=== PATIENT | female | born 1930 | race Caucasian/White ===

== ENCOUNTER 2016-11-25 10:11 | Inpatient (IN) | payer MEDICARE ==
[~2016-11-25] VITALS: Ht 154.9 cm; Wt 86.7 kg
[2016-11-25 11:45] VITALS: BP 134/62
[2016-11-25] MEDS ORDERED: MORPHINE SULFATE 2 MG/ML DISP.SYRIN. IV PRN (12:30)
[2016-11-25] MEDS ORDERED: ACETAMINOPHEN 325 MG TABLET. PO PRN (12:30)
[2016-11-25] MEDS ORDERED: ONDANSETRON PF 4 MG/2 ML VIAL. IV PRN (12:30)
[2016-11-25] MEDS ORDERED: PIP/TAZO PER PHARMACY MC PRN (12:30)
[2016-11-25] MEDS ORDERED: VANCOMYCIN 1.75 GM in IV NORMAL SALINE 500ML BAG 500 ML IV ONE (12:30)
--- NOTE | 2016-11-25 13:00 | RAD ---
Portable chest, 11/25/2016: History: Pneumonia No previous chest radiographs are available at this time for comparison purposes. The heart is at the upper limits of normal in size. There is calcific plaquing of the aorta. There are patchy right lung infiltrates there may be pleural fluid layering posteriorly contributing to the lower chest opacities. The underlying pulmonary vascularity on the right is obscured. There is pleural thickening in the left lateral costophrenic angle suggesting pleural fluid. No definite left lung infiltrate is seen. IMPRESSION: 1. Moderate right lung infiltrates suggesting pneumonia versus unilateral pulmonary edema. 2. Probable small bilateral pleural effusions.
[2016-11-25 13:48] LABS: BASO % 0 % (0-3); EOS % 0 % (0-3); HEMATOCRIT 26.3 % (36.0-47.0); HEMOGLOBIN 8.6 g/dL (12.0-15.5); LYMPH # 0.8 x10^3/uL (1.0-4.8); LYMPH % 7 % (24-48); MEAN CORPUSCULAR HEMOGLOBIN 32 pg (25-35); MEAN CORPUSCULAR HGB CONC 33 g/dL (31-37); MEAN CORPUSCULAR VOLUME 97 fL (79-100); MONO % 15 % (0-9); NEUT % 78 % (31-73); PLATELET COUNT 314 x10^3/uL (140-400); RED BLOOD COUNT 2.71 x10^6/uL (3.50-5.40); RED CELL DISTRIBUTION WIDTH 15.8 % (11.5-14.5); WHITE BLOOD COUNT 12.5 x10^3/uL (4.0-11.0)
[2016-11-25 13:58] LABS: INR 1.6 (0.8-1.1); PROTHROMBIN TIME PATIENT 17.8 SEC (11.7-14.0)
[2016-11-25] MEDS ORDERED: hydrALAZINE 20 MG/ML VIAL. IVP PRN (14:00)
[2016-11-25] MEDS ORDERED: VANCOMYCIN 2 GM in IV NORMAL SALINE 500ML BAG 500 ML IV ONE (14:00)
[2016-11-25] MEDS ORDERED: DEXTROSE 50% 25 GM / 50ML DISP.SYRIN. IV PRN (14:00)
[2016-11-25] MEDS ORDERED: ALBUTEROL SULFATE 2.5 MG/3 ML NEBU. NEB PRN (14:00)
[2016-11-25 14:04] LABS: CALCIUM 9.2 mg/dL (8.5-10.1); CREATININE 2.4 mg/dL (0.6-1.0); GFR 19.2; POTASSIUM 4.5 mmol/L (3.5-5.1)
--- NOTE | 2016-11-25 14:11 | PDOC1 ---
History and Physical Date of Admission Date of Admission 11/25/16 Identification/Chief Complaint Chief Complaint cough Problems: Source Source: Chart review, Patient History of Present Illness History of Present Illness 86yo F, pleasant, was transferred from [facility] for HAP. Pt was admitted there on 11/07 for right leg cellulitis, then became cough with yellow sputum, fever, chills, sob, treated with levaquin and zosyn for HAP, not better, then transfer here. no home o2. Now on NC 2L. WAS given lasix 40mg daily iv, Cr higher to 2.5 from baseline 1.7. low po appetite. Past Medical History Past Medical History CAD, CHF, DM2, COPD, HTN. STROKE. Past Surgical History Past Surgical History: No pertinent history Family History Family History: No Significant Social History Smoke: No ALCOHOL: none Drugs: None Current Problem List Problem List Problems Medical Problems: (1) Pneumonia Status: Acute Current Medications Current Medications Current Medications Medications (Trade) Dose Ordered Sig/Marga Start Time Stop Time Status Last Admin Dose Admin Acetaminophen (Tylenol) 650 mg PRN Q6HRS PRN 11/25/16 12:30 Acetaminophen/ Hydrocodone Bitart (Lortab 5/325) 1 tab PRN Q4HRS PRN 11/25/16 12:30 Heparin Sodium (Porcine) 5000 unit 5,000 unit Q8HRS 11/25/16 14:00 Morphine Sulfate 1 mg PRN Q1HR PRN 11/25/16 12:30 Ondansetron HCl (Zofran) 4 mg PRN Q6HRS PRN 11/25/16 12:30 Piperacillin Sod/ Tazobactam Sod (Zosyn Per Pharmacy) 1 each PRN DAILY PRN 11/25/16 12:30 Piperacillin Sod/ Tazobactam Sod/ Sodium Chloride (Zosyn/Iv Sodium Chloride 0.9% 50ml) 50 ml @ 100 mls/hr Q6HRS 11/25/16 18:00 UNV Vancomycin HCl 1.75 gm/Sodium Chloride 500 ml @ 250 mls/hr 1X ONCE 11/25/16 12:30 11/25/16 14:29 UNV Vancomycin HCl 1 each 1 each PRN DAILY PRN 11/25/16 12:30 Vancomycin HCl/ Sodium Chloride (Iv Sodium Chloride 0.9% 500ml Bag) 500 ml @ 250 mls/hr 1X ONCE 11/25/16 14:00 11/25/16 15:59 Allergies Allergies Allergies Coded Allergies Type Severity Reaction Last Updated Verified cephalexin Allergy Intermediate PT DOES NOT RECALL ALLERGY/RXN 11/25/16 Yes famotidine Allergy Intermediate 11/25/16 Yes tetracycline Allergy Intermediate 11/25/16 Yes tolmetin Allergy Intermediate 11/25/16 Yes ROS Review of System CONSTITUTIONAL: No fever or chills EYES: No recent changes SKIN: No rash or itching CARDIOVASCULAR: No chest pain, syncope, palpitations, or edema RESPIRATORY: No SOB or cough GASTROINTESTINAL: No nausea, vomiting or abdominal pain NEUROLOGICAL: No headaches or weakness ENDOCRINE: No cold or heat intolerance GENITOURINARY: No urgency or frequency of urination MUSCULOSKELETAL: No back pain or joint pain LYMPHATICS: No enlarged lymph nodes PSYCHIATRIC: No anxiety or depression Physical Exam Physical Exam GEN.: No apparent distress. Alert and oriented. sob. HEENT: Head is normocephalic, atraumatic NECK: Supple. LUNGS: bl mild rhonchis. HEART: RRR, S1, S2 present. Peripheral pulses intact ABDOMEN: Soft, nontender. Positive bowel sounds. EXTREMITIES: Without any cyanosis. bl leg mild edema. NEUROLOGIC: Normal speech, normal tone PSYCHIATRIC: Normal affect, normal mood. SKIN: No ulcerations Vitals Vitals Vital Signs Date Time Temp Pulse Resp B/P Pulse Ox O2 Delivery O2 Flow Rate FiO2 11/25/16 13:41 Nasal Cannula 2.0 11/25/16 11:45 97.9 103 20 134/62 95 97.9 Labs Labs Laboratory Tests Test 11/25/16 13:35 White Blood Count 12.5x10^3/uL (4.0-11.0) Red Blood Count 2.71x10^6/uL (3.50-5.40) Hemoglobin 8.6g/dL (12.0-15.5) Hematocrit 26.3% (36.0-47.0) Mean Corpuscular Volume 97fL (79-100) Mean Corpuscular Hemoglobin 32pg (25-35) Mean Corpuscular Hemoglobin Concent 33g/dL (31-37) Red Cell Distribution Width 15.8% (11.5-14.5) Platelet Count 314x10^3/uL (140-400) Neutrophils (%) (Auto) 78% (31-73) Lymphocytes (%) (Auto) 7% (24-48) Monocytes (%) (Auto) 15% (0-9) Eosinophils (%) (Auto) 0% (0-3) Basophils (%) (Auto) 0% (0-3) Neutrophils # (Auto) 9.8x10^3uL (1.8-7.7) Lymphocytes # (Auto) 0.8x10^3/uL (1.0-4.8) Monocytes # (Auto) 1.8x10^3/uL (0.0-1.1) Eosinophils # (Auto) 0.0x10^3/uL (0.0-0.7) Basophils # (Auto) 0.0x10^3/uL (0.0-0.2) Prothrombin Time 17.8SEC (11.7-14.0) Prothromb Time International Ratio 1.6 (0.8-1.1) Laboratory Tests Test 11/25/16 13:35 White Blood Count 12.5x10^3/uL (4.0-11.0) Red Blood Count 2.71x10^6/uL (3.50-5.40) Hemoglobin 8.6g/dL (12.0-15.5) Hematocrit 26.3% (36.0-47.0) Mean Corpuscular Volume 97fL (79-100) Mean Corpuscular Hemoglobin 32pg (25-35) Mean Corpuscular Hemoglobin Concent 33g/dL (31-37) Red Cell Distribution Width 15.8% (11.5-14.5) Platelet Count 314x10^3/uL (140-400) Neutrophils (%) (Auto) 78% (31-73) Lymphocytes (%) (Auto) 7% (24-48) Monocytes (%) (Auto) 15% (0-9) Eosinophils (%) (Auto) 0% (0-3) Basophils (%) (Auto) 0% (0-3) Neutrophils # (Auto) 9.8x10^3uL (1.8-7.7) Lymphocytes # (Auto) 0.8x10^3/uL (1.0-4.8) Monocytes # (Auto) 1.8x10^3/uL (0.0-1.1) Eosinophils # (Auto) 0.0x10^3/uL (0.0-0.7) Basophils # (Auto) 0.0x10^3/uL (0.0-0.2) Prothrombin Time 17.8SEC (11.7-14.0) Prothromb Time International Ratio 1.6 (0.8-1.1) VTE Prophylaxis Ordered VTE Prophylaxis Devices: Yes VTE Pharmacological Prophylaxi: Yes Assessment/Plan Assessment/Plan 1. sob with HAP 2. recent left leg cellulitis 3. h/o diastolic CHF 4. h/o CAD 5. ROB on CKD3 6. dm2 7. COPD 8. h/o stroke 9. morbid obesity 10. HTN 11. Acute resp failure with 1 12. sepsis with 1 plan: 1. card, pulm, renal consutl 2. CXR, CT , renal US 3. labs stat 4. ssi, duoneb 5. need home meds 6. blcx, sputum cx. add vanco and zosyn 7. dvt ppx ptot ADDISON SPANN MD Nov 25, 2016 14:11
[2016-11-25] MEDS: HEPARIN PF for SUB-Q USE 5,000 UNIT/0.5 ML VIAL. SQ SCH ×2 (14:30→21:47)
[2016-11-25] MEDS: VANCOMYCIN PER PHARMACY MC PRN (14:49)
[2016-11-25] MEDS: PIPERACILLIN/TAZOBACTAM 2.25 GM in IV NORMAL SALINE 50ML 50 ML IV SCH ×2 (15:00→21:37)
--- NOTE | 2016-11-25 16:43 | RAD ---
CT of the chest without contrast, 11/25/2016: History: Pneumonia, lung mass Noncontrast scans were obtained as requested. There is moderate calcific plaquing of the thoracic aorta without evidence of aneurysm. Scattered coronary artery calcifications are present. There are several pericardial calcifications. The heart is not significantly enlarged. Several small mediastinal lymph nodes are present without evidence of pathologic enlargement. There are small bilateral pleural effusions, right greater than left. There is moderate pulmonary consolidation and atelectasis in the right lower lobe, the posterior aspect of the right upper lobe as well as the posterior aspect of the right middle lobe. On the left, there are minimal tree-in-bud and groundglass type opacities in the posterior aspect of the left upper lobe. There are mild infrahilar groundglass opacities in the left lower lobe as well as small areas of peripheral parenchymal consolidation or atelectasis posteriorly in the left lower lobe. There is mild subcutaneous edema in both flank regions. IMPRESSION: 1. Moderate consolidation in the right lower lobe and the posterior aspects of the right upper and middle lobes suggesting pneumonia, with a small to moderate amount of associated right-sided pleural fluid. 2. Minimal patchy left chest opacities and small left pleural effusion. 3. Moderate coronary artery calcifications. 4. Pericardial calcifications. PQRS Compliance Statement: One or more of the following individualized dose reduction techniques were utilized for this examination: 1. Automated exposure control 2. Adjustment of the mA and/or kV according to patient size 3. Use of iterative reconstruction technique
--- NOTE | 2016-11-25 16:46 | RAD ---
Renal ultrasound, 11/25/2016: History: Acute renal injury The study is compromised by the patient's size. The right kidney measures 9.2 cm in length as does the left kidney. There is no evidence of hydronephrosis. The left renal contour is lobulated. Limited views of urinary bladder show no abnormality. IMPRESSION: 1. Suboptimal exam due to the patient's body habitus. 2. Lobulation of the left renal contour raising the possibility of an underlying mass. CT scanning is suggested for further evaluation. 3. No evidence of renal obstruction.
[2016-11-25] MEDS: IPRATRPIUM/ALBUTEROL 0.5/2.5MG 3 ML NEBU. NEB SCH ×2 (16:51→19:25)
--- NOTE | 2016-11-25 16:54 | PDOC ---
Provider Note Provider Note dictated CARITO SUBRAMANIAN MD Nov 25, 2016 16:54
--- NOTE | 2016-11-25 16:56 | CARD ---
APPROVED REPORT EXAM: Two-dimensional and M-mode echocardiogram with Doppler and color Doppler. Other Information Quality : AverageHR: 89bpm Rhythm : NSR INDICATION Congestive Heart Failure RISK FACTORS Obesity 2D DIMENSIONS RVDd2.4 (2.9-3.5cm)Left Atrium(2D)3.8 (1.6-4.0cm) IVSd0.8 (0.7-1.1cm)Aortic Root(2D)2.0 (2.0-3.7cm) LVDd3.7 (3.9-5.9cm)LVOT Diameter2.1 (1.8-2.4cm) PWd0.9 (0.7-1.1cm)LVDs2.9 (2.5-4.0cm) FS (%) 19.9 %SV23.4 ml LVEF(%)41.6 (>50%) Aortic Valve AoV Peak Ha.177.5cm/sAoV VTI39.6cm AO Peak GR.12.6mmHgLVOT Peak Ha.112.5cm/s AO Mean GR.7mmHgAVA (VMAX)2.15cm2 Mitral Valve MV E Kioeiqrr313.2cm/sMV DECEL PRYY759ct MV A Artfpzij509.0cm/sE/A Ratio0.8 MV A [id number] Tricuspid Valve TR P. Prdahmuw007ih/sTR Peak Gr.45mmHg Pulmonary Vein S1 Zywtjmbf26.7cm/sD2 Jrqktfdq04.6cm/s PVa rpmgegyv49rysq LEFT VENTRICLE The left ventricle is normal size. There is normal left ventricular wall thickness. Left ventricle sy stolic function is mildly impaired. The Ejection Fraction is 40-45%. There is mild global hypokinesis of the left ventricle. Abnormal septal wall motion is noted. Distal 1/3rd of the LV appears hypocont ractile. Transmitral Doppler flow pattern is Grade I-abnormal relaxation pattern. RIGHT VENTRICLE The right ventricle is normal size. There is normal right ventricular wall thickness. The right ventr icular systolic function is normal. ATRIA The left atrium size is normal. The right atrium size is normal. The interatrial septum is intact wit h no evidence for an atrial septal defect or patent foramen ovale as noted on 2-D or Doppler imaging. AORTIC VALVE The aortic valve is not well visualized. The aortic valve is mildly sclerotic. Doppler and Color Flow revealed no significant aortic regurgitation. There is no significant aortic valvular stenosis. MITRAL VALVE Mitral annular calcification is mild. The mitral valve leaflets are thickened. There is no evidence o f mitral valve prolapse. There is no mitral valve stenosis. Doppler and Color Flow revealed mild mitr al regurgitation. TRICUSPID VALVE Doppler and Color Flow revealed mild tricuspid regurgitation.The pulmonary artery systolic pressure i s estimated at 49 mmHg. There is moderate pulmonary hypertension. PULMONIC VALVE The pulmonary artery was obscured, unable to assess. GREAT VESSELS The aortic root is normal in size. The ascending aorta is normal in size. The pulmonary artery was ob scured, unable to assess. The IVC was obscured, unable to assess. PERICARDIAL EFFUSION There is no evidence of significant pericardial effusion. Critical Notification Critical Value: No <Conclusion> There is mild global hypokinesis of the left ventricle. Abnormal septal wall motion is noted. Distal 1/3rd of the LV appears hypocontractile. Doppler and Color Flow revealed mild tricuspid regurgitation.The pulmonary artery systolic pressure i s estimated at 49 mmHg. There is moderate pulmonary hypertension. Left ventricle systolic function is mildly impaired. The Ejection Fraction is 40-45%. Technically limited study
[2016-11-25] MEDS: INSULIN ASPART 300 UNITS/3 ML INSULN.PEN SQ SCH (17:00)
[2016-11-25] MEDS: methylPREDNISolone SOD SUCC PF 40 MG/ML VIAL. IV SCH ×2 (17:13→21:36)
[2016-11-25] MEDS ORDERED: PIPERACILLIN/TAZOBACTAM 3.375 GM in IV NORMAL SALINE 50ML 50 ML IV SCH (18:00)
--- NOTE | 2016-11-25 18:14 | CONS ---
DATE OF CONSULTATION: ATTENDING PHYSICIAN: Dr. Jewell. REASON FOR CONSULTATION: Pneumonia, dyspnea, hypoxia. HISTORY OF PRESENT ILLNESS: The patient is an 86-year-old female who has a history of tobacco use for 30 years, but she quit more than 30 years ago. She was recently hospitalized at [facility] for lower extremity cellulitis. She started to have fevers over there, she started to have cough with yellow sputum production and chills. She was treated with Levaquin and Zosyn for healthcare-associated pneumonia and was not feeling any better; as a result, she was hospitalized for further evaluation. I have reviewed the patient's chest x-ray and it showed infiltrates in the right lung. There was small right pleural effusion as well. The patient underwent CT of the chest, which has not been dictated yet, but I preliminary reviewed the CT chest findings. There is evidence of consolidation in the right lower lobe and also in the posterior aspects of right upper lobe and middle lobe as well. There is a small amount of right pleural effusion. There is also some patchy infiltrates in the left lung and also a nodular opacity in the left lower lobe. I have been asked to see her for further evaluation. She is currently on oxygen 2 liters. She had some faint audible wheezing. PAST MEDICAL HISTORY: Significant for history of CAD, CHF, possible COPD, history of diabetes, hypertension and stroke. History of oxygen use at 2 liters. PAST SURGICAL HISTORY: No recent surgeries. She has history of uterine cancer. ALLERGIES: TO CEPHALEXIN, PEPCID, TETRACYCLINE AND TOLMETIN. SOCIAL HISTORY: Smoked for 30 years before quitting more than 30 years ago. MEDICATIONS: Reviewed as listed in the MRAD including broad-spectrum antibiotic, vancomycin and Zosyn. REVIEW OF SYSTEMS: Twelve-point system obtained, pertinent positives discussed in history of present illness, otherwise noncontributory. All systems that were negative were reviewed as well. FAMILY HISTORY: Noncontributory to lungs. PHYSICAL EXAMINATION: VITAL SIGNS: Her blood pressure is 134/62, afebrile, pulse ox 95% on 2 liters. NECK: Supple. LUNGS: With bilateral expiratory wheezes. CARDIOVASCULAR: Regular rate and ____. ABDOMEN: Soft, nontender, obese. EXTREMITIES: With bilateral 1+ pitting edema and venous stasis. LABORATORY DATA: Reviewed. White cell count 12.5, hemoglobin 8.6, platelets 314, BUN 50, creatinine 2.4. ProBNP is 7124. IMPRESSION: 1. Dyspnea / Acute hypoxic Respiratory failure secondary to multifactorial etiologies including acute exacerbation of chronic obstructive pulmonary disease along with pneumonia involving the right lung. 2. Abnormal CT chest with extensive pneumonia in the right lung. We will cover for gram-negative and gram-positive organisms for healthcare-associated pneumonia. 3. Underlying chronic obstructive pulmonary disease with exacerbation. 4. Acute kidney injury. 5. Small to moderate right pleural effusion. We will monitor for now. 6. Obtain albumin to assess for nutritional status. RECOMMENDATIONS: 1. Discussed with the patient's . We will continue with broad-spectrum antibiotics. 2. Continue with DuoNebs. 3. Low dose Solu-Medrol till bronchospasm is resolved. 4. Follow sputum and blood cultures. 5. Follow chest x-rays. 6. Discussed with RN. CARITO SUBRAMANIAN MD DR: GETACHEW/salvatore JOB#: [id number] / [id number] TAM
[2016-11-25 19:59] VITALS: BP 169/64
[2016-11-25] MEDS: HYDROCODONE/APAP 5/325MG TABLET. PO PRN (20:13)
[2016-11-25] MEDS ORDERED: GABA-586 PO (22:18)
[2016-11-25] MEDS ORDERED: DOCU100C5 PO (22:18)
[2016-11-25] MEDS ORDERED: FURO40TA4 IVP (22:18)
[2016-11-25] MEDS ORDERED: GLIP5TAB3 PO (22:18)
[2016-11-25] MEDS ORDERED: LISI-334 PO (22:20)
[2016-11-25] MEDS ORDERED: NYST30PO9 TP (22:20)
[2016-11-25 23:26] VITALS: BP 146/61
[2016-11-26 03:37] VITALS: BP 169/81
[2016-11-26] MEDS: PIPERACILLIN/TAZOBACTAM 2.25 GM in IV NORMAL SALINE 50ML 50 ML IV SCH ×3 (05:51→21:08)
[2016-11-26] MEDS: methylPREDNISolone SOD SUCC PF 40 MG/ML VIAL. IV SCH (05:51)
[2016-11-26] MEDS: HEPARIN PF for SUB-Q USE 5,000 UNIT/0.5 ML VIAL. SQ SCH ×3 (06:09→21:31)
[2016-11-26 07:00] VITALS: BP 158/67
[2016-11-26] MEDS: IPRATRPIUM/ALBUTEROL 0.5/2.5MG 3 ML NEBU. NEB SCH ×4 (07:45→19:27)
[2016-11-26] MEDS: INSULIN ASPART 300 UNITS/3 ML INSULN.PEN SQ SCH ×3 (08:00→17:21)
[2016-11-26 08:40] LABS: BASO % 0 % (0-3); EOS % 0 % (0-3); HEMATOCRIT 28.3 % (36.0-47.0); HEMOGLOBIN 9.2 g/dL (12.0-15.5); LYMPH # 0.6 x10^3/uL (1.0-4.8); LYMPH % 7 % (24-48); MEAN CORPUSCULAR HEMOGLOBIN 32 pg (25-35); MEAN CORPUSCULAR HGB CONC 33 g/dL (31-37); MEAN CORPUSCULAR VOLUME 98 fL (79-100); MONO % 4 % (0-9); NEUT % 89 % (31-73); PLATELET COUNT 326 x10^3/uL (140-400); RED BLOOD COUNT 2.89 x10^6/uL (3.50-5.40); RED CELL DISTRIBUTION WIDTH 15.8 % (11.5-14.5); WHITE BLOOD COUNT 8.7 x10^3/uL (4.0-11.0)
[2016-11-26 08:47] LABS: CALCIUM 9.6 mg/dL (8.5-10.1); CREATININE 2.2 mg/dL (0.6-1.0); GFR 21.2; POTASSIUM 4.4 mmol/L (3.5-5.1)
[2016-11-26 09:13] LABS: % SAT IRON 18 % (15-34); IRON,SERUM 40 ug/dL (50-170)
--- NOTE | 2016-11-26 09:26 | PDOC ---
PULMONARY PROGRESS NOTES Subjective Pt says she is SOA since this am Vitals Vital Signs Date Time Temp Pulse Resp B/P Pulse Ox O2 Delivery O2 Flow Rate FiO2 11/26/16 07:45 93 Nasal Cannula 2.0 11/26/16 07:00 96.6 85 22 158/67 96.6 General: Alert Lungs: Wheezing (duffuse) Cardiovascular: S1 Abdomen: Soft Neuro Exam: Alert Extremities: No Edema Skin: Warm Labs Laboratory Tests Test 11/25/16 13:35 11/25/16 17:28 11/25/16 20:49 11/26/16 07:25 White Blood Count 12.5x10^3/uL (4.0-11.0) 8.7x10^3/uL (4.0-11.0) Red Blood Count 2.71x10^6/uL (3.50-5.40) 2.89x10^6/uL (3.50-5.40) Hemoglobin 8.6g/dL (12.0-15.5) 9.2g/dL (12.0-15.5) Hematocrit 26.3% (36.0-47.0) 28.3% (36.0-47.0) Mean Corpuscular Volume 97fL (79-100) 98fL (79-100) Mean Corpuscular Hemoglobin 32pg (25-35) 32pg (25-35) Mean Corpuscular Hemoglobin Concent 33g/dL (31-37) 33g/dL (31-37) Red Cell Distribution Width 15.8% (11.5-14.5) 15.8% (11.5-14.5) Platelet Count 314x10^3/uL (140-400) 326x10^3/uL (140-400) Neutrophils (%) (Auto) 78% (31-73) 89% (31-73) Lymphocytes (%) (Auto) 7% (24-48) 7% (24-48) Monocytes (%) (Auto) 15% (0-9) 4% (0-9) Eosinophils (%) (Auto) 0% (0-3) 0% (0-3) Basophils (%) (Auto) 0% (0-3) 0% (0-3) Neutrophils # (Auto) 9.8x10^3uL (1.8-7.7) 7.7x10^3uL (1.8-7.7) Lymphocytes # (Auto) 0.8x10^3/uL (1.0-4.8) 0.6x10^3/uL (1.0-4.8) Monocytes # (Auto) 1.8x10^3/uL (0.0-1.1) 0.3x10^3/uL (0.0-1.1) Eosinophils # (Auto) 0.0x10^3/uL (0.0-0.7) 0.0x10^3/uL (0.0-0.7) Basophils # (Auto) 0.0x10^3/uL (0.0-0.2) 0.0x10^3/uL (0.0-0.2) Prothrombin Time 17.8SEC (11.7-14.0) Prothromb Time International Ratio 1.6 (0.8-1.1) Sodium Level 143mmol/L (136-145) 142mmol/L (136-145) Potassium Level 4.5mmol/L (3.5-5.1) 4.4mmol/L (3.5-5.1) Chloride Level 106mmol/L (98-107) 105mmol/L (98-107) Carbon Dioxide Level 27mmol/L (21-32) 24mmol/L (21-32) Anion Gap 10 (6-14) 13 (6-14) Blood Urea Nitrogen 50mg/dL (7-20) 50mg/dL (7-20) Creatinine 2.4mg/dL (0.6-1.0) 2.2mg/dL (0.6-1.0) Estimated GFR (Cockcroft-Gault) 19.2 21.2 Glucose Level 132mg/dL (70-99) 191mg/dL (70-99) Calcium Level 9.2mg/dL (8.5-10.1) 9.6mg/dL (8.5-10.1) DF-Xko-X-Type Natriuretic Peptide 7124pg/mL (0-449) Glucose (Fingerstick) 117mg/dL (70-99) 172mg/dL (70-99) Iron Level 40ug/dL (50-170) Total Iron Binding Capacity 217ug/dL (250-450) Iron Saturation 18% (15-34) Ferritin 473ng/mL (8-252) Laboratory Tests Test 11/25/16 13:35 11/25/16 17:28 11/25/16 20:49 11/26/16 07:25 White Blood Count 12.5x10^3/uL (4.0-11.0) 8.7x10^3/uL (4.0-11.0) Red Blood Count 2.71x10^6/uL (3.50-5.40) 2.89x10^6/uL (3.50-5.40) Hemoglobin 8.6g/dL (12.0-15.5) 9.2g/dL (12.0-15.5) Hematocrit 26.3% (36.0-47.0) 28.3% (36.0-47.0) Mean Corpuscular Volume 97fL (79-100) 98fL (79-100) Mean Corpuscular Hemoglobin 32pg (25-35) 32pg (25-35) Mean Corpuscular Hemoglobin Concent 33g/dL (31-37) 33g/dL (31-37) Red Cell Distribution Width 15.8% (11.5-14.5) 15.8% (11.5-14.5) Platelet Count 314x10^3/uL (140-400) 326x10^3/uL (140-400) Neutrophils (%) (Auto) 78% (31-73) 89% (31-73) Lymphocytes (%) (Auto) 7% (24-48) 7% (24-48) Monocytes (%) (Auto) 15% (0-9) 4% (0-9) Eosinophils (%) (Auto) 0% (0-3) 0% (0-3) Basophils (%) (Auto) 0% (0-3) 0% (0-3) Neutrophils # (Auto) 9.8x10^3uL (1.8-7.7) 7.7x10^3uL (1.8-7.7) Lymphocytes # (Auto) 0.8x10^3/uL (1.0-4.8) 0.6x10^3/uL (1.0-4.8) Monocytes # (Auto) 1.8x10^3/uL (0.0-1.1) 0.3x10^3/uL (0.0-1.1) Eosinophils # (Auto) 0.0x10^3/uL (0.0-0.7) 0.0x10^3/uL (0.0-0.7) Basophils # (Auto) 0.0x10^3/uL (0.0-0.2) 0.0x10^3/uL (0.0-0.2) Prothrombin Time 17.8SEC (11.7-14.0) Prothromb Time International Ratio 1.6 (0.8-1.1) Sodium Level 143mmol/L (136-145) 142mmol/L (136-145) Potassium Level 4.5mmol/L (3.5-5.1) 4.4mmol/L (3.5-5.1) Chloride Level 106mmol/L (98-107) 105mmol/L (98-107) Carbon Dioxide Level 27mmol/L (21-32) 24mmol/L (21-32) Anion Gap 10 (6-14) 13 (6-14) Blood Urea Nitrogen 50mg/dL (7-20) 50mg/dL (7-20) Creatinine 2.4mg/dL (0.6-1.0) 2.2mg/dL (0.6-1.0) Estimated GFR (Cockcroft-Gault) 19.2 21.2 Glucose Level 132mg/dL (70-99) 191mg/dL (70-99) Calcium Level 9.2mg/dL (8.5-10.1) 9.6mg/dL (8.5-10.1) RS-Yow-H-Type Natriuretic Peptide 7124pg/mL (0-449) Glucose (Fingerstick) 117mg/dL (70-99) 172mg/dL (70-99) Iron Level 40ug/dL (50-170) Total Iron Binding Capacity 217ug/dL (250-450) Iron Saturation 18% (15-34) Ferritin 473ng/mL (8-252) Medications Active Scripts Medications Dose Route/Sig Days Date Category Nystatin 15 Gm Powder 1 Sapna TP BID 11/25/16 Reported Lisinopril 20 Mg Tablet 20 Mg PO DAILY 11/25/16 Reported Glucotrol (Glipizide) 5 Mg Tablet 5 Mg PO DAILY 11/25/16 Reported Gabapentin 300 Mg Capsule 300 Mg PO TID 11/25/16 Reported Furosemide 40 Mg Tablet 40 Mg IVP DAILY 11/25/16 Reported Docusate Sodium 100 Mg Capsule 100 Mg PO DAILY 11/25/16 Reported Impression . 1. Dyspnea / Acute hypoxic Respiratory failure secondary to multifactorial etiologies including acute exacerbation of chronic obstructive pulmonary disease along with pneumonia involving the right lung. 2. Abnormal CT chest with extensive pneumonia in the right lung. We will cover for gram-negative and gram-positive organisms for healthcare-associated pneumonia. 3. Underlying chronic obstructive pulmonary disease with exacerbation. 4. Acute kidney injury. 5. Small to moderate right pleural effusion. We will monitor for now. 6. Obtain albumin to assess for nutritional status. Plan . 1. Discussed with the patient's an RN. Will get ABG/ place her on BIPAP. We will continue with broad-spectrum antibiotics. 2. Continue with DuoNebs.q 4 hr 3. increase Solu-Medrol till bronchospasm is resolved. 4. Follow sputum and blood cultures. 5. Follow chest x-rays. 6. Discussed with RN. CARITO SUBRAMANIAN MD Nov 26, 2016 09:26
[2016-11-26 11:00] VITALS: BP 168/71
[2016-11-26 11:46] LABS: FOLATE 5.1 ng/ml (3.2-20.0)
[2016-11-26 11:47] LABS: PLT ESTIMATE ADEQUATE (ADEQUATE)
[2016-11-26 12:55] LABS: HCO3 ABG 22 mmol/L (21-28); PCO2 ABG 33 mmHg (35-46); PH ABG 7.45 (7.35-7.45); PO2 ABG 90 mmHg (65-108); SAT O2 ABG 96 % (92-99)
--- NOTE | 2016-11-26 13:08 | PDOC2 ---
CONSULT Date of Consult Date of Consult DATE: 11/26/16 TIME: 13:07 Reason for Consult Reason for Consult: ROB Referring Physician Referring Physician: Dr lujan Identification/Chief Complaint Chief Complaint Rob and HAPn Problems: Source Source: Chart review, Patient History of Present Illness Reason for Visit: as dictated Past Surgical History Past Surgical History: No pertinent history Family History Family History: No Significant Social History No ALCOHOL: none Drugs: None Current Problem List Problem List Problems Medical Problems: (1) Pneumonia Status: Acute Current Medications Current Medications Current Medications Ondansetron HCl (Zofran) 4 mg PRN Q6HRS PRN IV NAUSEA/VOMITING; Start 11/25/16 at 12:30 Morphine Sulfate 1 mg PRN Q1HR PRN IV PAIN; Start 11/25/16 at 12:30 Acetaminophen/ Hydrocodone Bitart (Lortab 5/325) 1 tab PRN Q4HRS PRN PO MILD PAIN, 2ND CHOICE Last administered on 11/25/16 20:13; Start 11/25/16 at 12:30 Acetaminophen (Tylenol) 650 mg PRN Q6HRS PRN PO Headaches, Temp > 101.5F; Start 11/25/16 at 12:30 Heparin Sodium (Porcine) 5000 unit 5,000 unit Q8HRS SQ Last administered on 11/26 06:09; Start 11/25/16 at 14:00 Piperacillin Sod/ Tazobactam Sod/ Sodium Chloride (Zosyn/Iv Sodium Chloride 0.9 % 50ml) 50 ml @ 100 mls/hr Q6HRS IV ; Start 11/25/16 at 18:00; Status UNV Piperacillin Sod/ Tazobactam Sod (Zosyn Per Pharmacy) 1 each PRN DAILY PRN MC SEE COMMENTS; Start 11/25/16 at 12:30 Vancomycin HCl 1 each 1 each PRN DAILY PRN MC SEE COMMENTS Last administered on 11/25/16 14:49; Start 11/25/16 at 12:30 Vancomycin HCl 1.75 gm/Sodium Chloride 500 ml @ 250 mls/hr 1X ONCE IV ; Start 11/25/16 at 12:30; Stop 11/25/16 at 14:29; Status UNV Vancomycin HCl/ Sodium Chloride (Iv Sodium Chloride 0.9% 500ml Bag) 500 ml @ 250 mls/hr 1X ONCE IV Last administered on 11/25/16 14:18; Start 11/25/16 at 14 :00; Stop 11/25/16 at 15:59; Status DC Albuterol/ Ipratropium (Duoneb) 3 ml RTQID NEB Last administered on 11/26/16 07 :45; Start 11/25/16 at 16:00; Stop 11/26/16 at 09:29; Status DC Albuterol Sulfate (Ventolin Neb Soln) 2.5 mg PRN Q4HRS PRN NEB SHORTNESS OF BREATH; Start 11/25/16 at 14:00 Insulin Aspart (Novolog) 0-9 UNITS TIDWMEALS SQ Last administered on 11/26/16 12:55; Start 11/25/16 at 17:00 Dextrose (Dextrose 50%-Water Syringe) 12.5 gm PRN Q15MIN PRN IV SEE COMMENTS; Start 11/25/16 at 14:00 Hydralazine HCl 10 mg 10 mg PRN Q4HRS PRN IVP ELEVATED BP, SEE COMMENTS; Start 11/25/16 at 14:00 Piperacillin Sod/ Tazobactam Sod 2.25 gm/Sodium Chloride 50 ml @ 100 mls/hr Q8HRS IV Last administered on 11/26/16 05:51; Start 11/25/16 at 15:00 Vancomycin HCl/ Sodium Chloride (Iv Sodium Chloride 0.9% 250ml) 250 ml @ 166.667 mls/hr Q24H IV ; Start 11/26/16 at 14:00 Vancomycin HCl 1 each 1X ONCE MC ; Start 11/27/16 at 13:30; Stop 11/27/16 at 13: 31 Methylprednisolone Sodium Succinate (Solu-Medrol 40mg Vial) 40 mg Q8HRS IV Last administered on 11/26/16 05:51; Start 11/25/16 at 17:00; Stop 11/26/16 at 09: 27; Status DC Methylprednisolone Sodium Succinate (Solu-Medrol 125mg Vial) 60 mg Q8HRS IV ; Start 11/26/16 at 14:00 Albuterol/ Ipratropium (Duoneb) 3 ml Q4HRS NEB Last administered on 11/26/16 11 :25; Start 11/26/16 at 12:00 Active Scripts Active Reported Nystatin 15 Gm Powder 1 Sapna TP BID Lisinopril 20 Mg Tablet 20 Mg PO DAILY Glucotrol (Glipizide) 5 Mg Tablet 5 Mg PO DAILY Gabapentin 300 Mg Capsule 300 Mg PO TID Furosemide 40 Mg Tablet 40 Mg IVP DAILY Docusate Sodium 100 Mg Capsule 100 Mg PO DAILY Allergies Allergies: Coded Allergies: cephalexin (Verified Allergy, Intermediate, PT DOES NOT RECALL ALLERGY/RXN , 11/25/16) famotidine (Verified Allergy, Intermediate, 11/25/16) tetracycline (Verified Allergy, Intermediate, 11/25/16) tolmetin (Verified Allergy, Intermediate, 11/25/16) ROS Review of System GEN: subj Fevers no Chills fatigue anorexia EYES: no new Visual Complaints (no recent eye exams) ENT: no EN Drainage no Hearing deficiets CVS: no Orthopnea no CP RESP: no SOB no SOLIS GI: no Nausea no Vomiting : no Dysuria no Urgency HEME: no easy bruising no Palp Ly Nodes NEURO no Focal Weakness no Sz ? Paresthesia in mallory lower ext PSYCH: no Suicidal Ideation min Depression SKIN: ? Rashes (cellulitis preadmit) ENDO: no Polyuria or Polydipsia no Hot/Cold Intolerance MU SK: no Arthraigia no Myalgia Physical Exam Physical Exam General Appearance: Awake Alert Oriented x 3 In no Distress Eyes: VIsion Unchanged Conjunctiva Normal EN: No EN Drainage Mucous Memb. moist, many missing teeth Neck: no JVD min JVP Supple no Thyromegaly CVS: S1 S2 ? Murmur No Gallop No Rub + Edema (some Brawny); +1 pulse in DP Resp: no Rales no Rhonchi no Acc. Muscle use; distal BS GI: BAS +ve NO Bruit Non Tender Non Distended; Obese : no CVA tenderness; no Suprapubic Tenderness SKIN: ? Rash on lower ext vs hypersensitivity Breast Exam deferred Mu.Sk: Adequate ROM no Muscle Atrophy Heme: Unable to palpate Obvious LAD no palp Splenomegaly NEURO: Good Strength and Tone Cranial Nerves II - XII grossly intact Psych: ? Depressed no Active hallucination Vital Signs Vital Signs Date Time Temp Pulse Resp B/P Pulse Ox O2 Delivery O2 Flow Rate FiO2 11/26/16 11:25 96 BiPAP/CPAP 11/26/16 11:00 97.8 81 22 168/71 2.0 97.8 Assessment & Plan ROB - ? due to diuresis. Presley and watch UO. Current FLuid and E-lyte status does not necessitate emergent need for Dialysis. Will re-evaluate for Dialysis in am Subjective Oliguria - cannot R/o ATN per se. CKD III/ Iv - baseline Creat is thot to be 1.7, (DM/ HTNsive / NS cannot beruled out, besides obesity related etios) but she was 2.3 OA at [facility]. will need OP labs from Dr Ferraro. Sh e is not aware of diagnosis of CKD per se Anemia: (fe def ) and some suspect due to recent hospitalization. may need Epogen Transfuse as needed. check Iron Proteinuria as noted from UA at [facility] - quatitate with 24-hr urine HTN: Current BP meds reviewed. See orders for changes. Edema - ? Liver vs RHF etio. Obesity related phenomenon. May not be able to clear edema without [employer] Discussed Plan of Care and prognosis etc. at length with family (son) Labs Labs Laboratory Tests Test 11/25/16 13:35 11/25/16 17:28 11/25/16 20:49 11/26/16 07:25 White Blood Count 12.5x10^3/uL (4.0-11.0) 8.7x10^3/uL (4.0-11.0) Red Blood Count 2.71x10^6/uL (3.50-5.40) 2.89x10^6/uL (3.50-5.40) Hemoglobin 8.6g/dL (12.0-15.5) 9.2g/dL (12.0-15.5) Hematocrit 26.3% (36.0-47.0) 28.3% (36.0-47.0) Mean Corpuscular Volume 97fL (79-100) 98fL (79-100) Mean Corpuscular Hemoglobin 32pg (25-35) 32pg (25-35) Mean Corpuscular Hemoglobin Concent 33g/dL (31-37) 33g/dL (31-37) Red Cell Distribution Width 15.8% (11.5-14.5) 15.8% (11.5-14.5) Platelet Count 314x10^3/uL (140-400) 326x10^3/uL (140-400) Neutrophils (%) (Auto) 78% (31-73) 89% (31-73) Lymphocytes (%) (Auto) 7% (24-48) 7% (24-48) Monocytes (%) (Auto) 15% (0-9) 4% (0-9) Eosinophils (%) (Auto) 0% (0-3) 0% (0-3) Basophils (%) (Auto) 0% (0-3) 0% (0-3) Neutrophils # (Auto) 9.8x10^3uL (1.8-7.7) 7.7x10^3uL (1.8-7.7) Lymphocytes # (Auto) 0.8x10^3/uL (1.0-4.8) 0.6x10^3/uL (1.0-4.8) Monocytes # (Auto) 1.8x10^3/uL (0.0-1.1) 0.3x10^3/uL (0.0-1.1) Eosinophils # (Auto) 0.0x10^3/uL (0.0-0.7) 0.0x10^3/uL (0.0-0.7) Basophils # (Auto) 0.0x10^3/uL (0.0-0.2) 0.0x10^3/uL (0.0-0.2) Prothrombin Time 17.8SEC (11.7-14.0) Prothromb Time International Ratio 1.6 (0.8-1.1) Sodium Level 143mmol/L (136-145) 142mmol/L (136-145) Potassium Level 4.5mmol/L (3.5-5.1) 4.4mmol/L (3.5-5.1) Chloride Level 106mmol/L (98-107) 105mmol/L (98-107) Carbon Dioxide Level 27mmol/L (21-32) 24mmol/L (21-32) Anion Gap 10 (6-14) 13 (6-14) Blood Urea Nitrogen 50mg/dL (7-20) 50mg/dL (7-20) Creatinine 2.4mg/dL (0.6-1.0) 2.2mg/dL (0.6-1.0) Estimated GFR (Cockcroft-Gault) 19.2 21.2 Glucose Level 132mg/dL (70-99) 191mg/dL (70-99) Calcium Level 9.2mg/dL (8.5-10.1) 9.6mg/dL (8.5-10.1) NY-Juc-B-Type Natriuretic Peptide 7124pg/mL (0-449) Glucose (Fingerstick) 117mg/dL (70-99) 172mg/dL (70-99) Segmented Neutrophils % 85% (35-66) Band Neutrophils % 8% (0-9) Lymphocytes % 5% (24-48) Monocytes % 2% (0-10) Platelet Estimate Adequate (ADEQUATE) Iron Level 40ug/dL (50-170) Total Iron Binding Capacity 217ug/dL (250-450) Iron Saturation 18% (15-34) Ferritin 473ng/mL (8-252) Vitamin B12 Level 356pg/mL (247-911) Serum Folate 5.10ng/ml (3.2-20.0) Test 11/26/16 07:59 11/26/16 10:05 11/26/16 12:08 Glucose (Fingerstick) 187mg/dL (70-99) 204mg/dL (70-99) O2 Saturation 96% (92-99) Arterial Blood pH 7.45 (7.35-7.45) Arterial Blood pCO2 at Patient Temp 33mmHg (35-46) Arterial Blood pO2 at Patient Temp 90mmHg (65-108) Arterial Blood HCO3 22mmol/L (21-28) Arterial Blood Base Excess -1mmol/L (-3-3) FiO2 28.0 Laboratory Tests Test 11/25/16 13:35 11/25/16 17:28 11/25/16 20:49 11/26/16 07:25 White Blood Count 12.5x10^3/uL (4.0-11.0) 8.7x10^3/uL (4.0-11.0) Red Blood Count 2.71x10^6/uL (3.50-5.40) 2.89x10^6/uL (3.50-5.40) Hemoglobin 8.6g/dL (12.0-15.5) 9.2g/dL (12.0-15.5) Hematocrit 26.3% (36.0-47.0) 28.3% (36.0-47.0) Mean Corpuscular Volume 97fL (79-100) 98fL (79-100) Mean Corpuscular Hemoglobin 32pg (25-35) 32pg (25-35) Mean Corpuscular Hemoglobin Concent 33g/dL (31-37) 33g/dL (31-37) Red Cell Distribution Width 15.8% (11.5-14.5) 15.8% (11.5-14.5) Platelet Count 314x10^3/uL (140-400) 326x10^3/uL (140-400) Neutrophils (%) (Auto) 78% (31-73) 89% (31-73) Lymphocytes (%) (Auto) 7% (24-48) 7% (24-48) Monocytes (%) (Auto) 15% (0-9) 4% (0-9) Eosinophils (%) (Auto) 0% (0-3) 0% (0-3) Basophils (%) (Auto) 0% (0-3) 0% (0-3) Neutrophils # (Auto) 9.8x10^3uL (1.8-7.7) 7.7x10^3uL (1.8-7.7) Lymphocytes # (Auto) 0.8x10^3/uL (1.0-4.8) 0.6x10^3/uL (1.0-4.8) Monocytes # (Auto) 1.8x10^3/uL (0.0-1.1) 0.3x10^3/uL (0.0-1.1) Eosinophils # (Auto) 0.0x10^3/uL (0.0-0.7) 0.0x10^3/uL (0.0-0.7) Basophils # (Auto) 0.0x10^3/uL (0.0-0.2) 0.0x10^3/uL (0.0-0.2) Prothrombin Time 17.8SEC (11.7-14.0) Prothromb Time International Ratio 1.6 (0.8-1.1) Sodium Level 143mmol/L (136-145) 142mmol/L (136-145) Potassium Level 4.5mmol/L (3.5-5.1) 4.4mmol/L (3.5-5.1) Chloride Level 106mmol/L (98-107) 105mmol/L (98-107) Carbon Dioxide Level 27mmol/L (21-32) 24mmol/L (21-32) Anion Gap 10 (6-14) 13 (6-14) Blood Urea Nitrogen 50mg/dL (7-20) 50mg/dL (7-20) Creatinine 2.4mg/dL (0.6-1.0) 2.2mg/dL (0.6-1.0) Estimated GFR (Cockcroft-Gault) 19.2 21.2 Glucose Level 132mg/dL (70-99) 191mg/dL (70-99) Calcium Level 9.2mg/dL (8.5-10.1) 9.6mg/dL (8.5-10.1) RK-Jzy-T-Type Natriuretic Peptide 7124pg/mL (0-449) Glucose (Fingerstick) 117mg/dL (70-99) 172mg/dL (70-99) Segmented Neutrophils % 85% (35-66) Band Neutrophils % 8% (0-9) Lymphocytes % 5% (24-48) Monocytes % 2% (0-10) Platelet Estimate Adequate (ADEQUATE) Iron Level 40ug/dL (50-170) Total Iron Binding Capacity 217ug/dL (250-450) Iron Saturation 18% (15-34) Ferritin 473ng/mL (8-252) Vitamin B12 Level 356pg/mL (247-911) Serum Folate 5.10ng/ml (3.2-20.0) Test 11/26/16 07:59 11/26/16 10:05 11/26/16 12:08 Glucose (Fingerstick) 187mg/dL (70-99) 204mg/dL (70-99) O2 Saturation 96% (92-99) Arterial Blood pH 7.45 (7.35-7.45) Arterial Blood pCO2 at Patient Temp 33mmHg (35-46) Arterial Blood pO2 at Patient Temp 90mmHg (65-108) Arterial Blood HCO3 22mmol/L (21-28) Arterial Blood Base Excess -1mmol/L (-3-3) FiO2 28.[address] [facility] 1. Moderate consolidation in the right lower lobe and the posterior aspects of the right upper and middle lobes suggesting pneumonia, with a small to moderate amount of associated right-sided pleural fluid. 2. Minimal patchy left chest opacities and small left pleural effusion. 3. Moderate coronary artery calcifications. 4. Pericardial calcifications. Renal US 1. Suboptimal exam due to the patient's body habitus. 2. Lobulation of the left renal contour raising the possibility of an underlying mass. CT scanning is suggested for further evaluation. 3. No evidence of renal obstruction. ECHO There is mild global hypokinesis of the left ventricle. Abnormal septal wall motion is noted. Distal 1/3rd of the LV appears hypocontractile. Doppler and Color Flow revealed mild tricuspid regurgitation.The pulmonary artery systolic pressure is estimated at 49 mmHg. There is moderate pulmonary hypertension. Left ventricle systolic function is mildly impaired. The Ejection Fraction is 40 -45%. Technically limited study KILLIAN ACOSTA MD Nov 26, 2016 13:08
[2016-11-26] MEDS ORDERED: MAGNESIUM SULFATE 2GM 50 ML IV PRN (13:15)
[2016-11-26 14:00] LABS: URIC ACID 7.8 mg/dL (2.6-6.0)
[2016-11-26] MEDS: VANCOMYCIN PER PHARMACY MC PRN (14:28)
[2016-11-26 15:00] VITALS: BP 162/61
--- NOTE | 2016-11-26 15:01 | PDOC ---
PROGRESS NOTES Chief Complaint Chief Complaint pna 1. acute resp failure with HAP 2. recent left leg cellulitis 3. h/o systolic CHF EF 40% 4. h/o CAD 5. ROB on CKD3 6. dm2 7. COPD 8. h/o stroke 9. morbid obesity 10. HTN 11.sepsis with 1 12. moderate PHTN plan: 1. card, pulm, renal consulted 2. CXR, CT , renal US 3. labs am 4. ssi, duoneb 5. cont home meds, hold lasix for now 6. blcx, sputum cx. add vanco and zosyn 7. dvt ppx ptot CT chest showed possible renal mass, may need CT, but with ROB , CT wo contrast is not ideal for now. renal aware. Swallow eval History of Present Illness History of Present Illness choked today then cough a lot on NC 2-3L Vitals Vitals Vital Signs Date Time Temp Pulse Resp B/P Pulse Ox O2 Delivery O2 Flow Rate FiO2 11/26/16 11:25 96 BiPAP/CPAP 11/26/16 11:00 97.8 81 22 168/71 2.0 97.8 Physical Exam General: Alert, Oriented X3, Cooperative Heart: Regular rate, Normal S1 (mild ) Lungs: Wheezing (duffuse) Abdomen: Normal bowel sounds, Soft Extremities: No clubbing, No cyanosis Labs LABS Laboratory Tests Test 11/25/16 17:28 11/25/16 20:49 11/26/16 07:25 11/26/16 07:59 Glucose (Fingerstick) 117mg/dL (70-99) 172mg/dL (70-99) 187mg/dL (70-99) White Blood Count 8.7x10^3/uL (4.0-11.0) Red Blood Count 2.89x10^6/uL (3.50-5.40) Hemoglobin 9.2g/dL (12.0-15.5) Hematocrit 28.3% (36.0-47.0) Mean Corpuscular Volume 98fL (79-100) Mean Corpuscular Hemoglobin 32pg (25-35) Mean Corpuscular Hemoglobin Concent 33g/dL (31-37) Red Cell Distribution Width 15.8% (11.5-14.5) Platelet Count 326x10^3/uL (140-400) Neutrophils (%) (Auto) 89% (31-73) Lymphocytes (%) (Auto) 7% (24-48) Monocytes (%) (Auto) 4% (0-9) Eosinophils (%) (Auto) 0% (0-3) Basophils (%) (Auto) 0% (0-3) Neutrophils # (Auto) 7.7x10^3uL (1.8-7.7) Lymphocytes # (Auto) 0.6x10^3/uL (1.0-4.8) Monocytes # (Auto) 0.3x10^3/uL (0.0-1.1) Eosinophils # (Auto) 0.0x10^3/uL (0.0-0.7) Basophils # (Auto) 0.0x10^3/uL (0.0-0.2) Segmented Neutrophils % 85% (35-66) Band Neutrophils % 8% (0-9) Lymphocytes % 5% (24-48) Monocytes % 2% (0-10) Platelet Estimate Adequate (ADEQUATE) Sodium Level 142mmol/L (136-145) Potassium Level 4.4mmol/L (3.5-5.1) Chloride Level 105mmol/L (98-107) Carbon Dioxide Level 24mmol/L (21-32) Anion Gap 13 (6-14) Blood Urea Nitrogen 50mg/dL (7-20) Creatinine 2.2mg/dL (0.6-1.0) Estimated GFR (Cockcroft-Gault) 21.2 Glucose Level 191mg/dL (70-99) Uric Acid 7.8mg/dL (2.6-6.0) Calcium Level 9.6mg/dL (8.5-10.1) Iron Level 40ug/dL (50-170) Total Iron Binding Capacity 217ug/dL (250-450) Iron Saturation 18% (15-34) Ferritin 473ng/mL (8-252) Creatine Kinase 101U/L (26-192) Vitamin B12 Level 356pg/mL (247-911) Serum Folate 5.10ng/ml (3.2-20.0) Test 11/26/16 10:05 11/26/16 12:08 O2 Saturation 96% (92-99) Arterial Blood pH 7.45 (7.35-7.45) Arterial Blood pCO2 at Patient Temp 33mmHg (35-46) Arterial Blood pO2 at Patient Temp 90mmHg (65-108) Arterial Blood HCO3 22mmol/L (21-28) Arterial Blood Base Excess -1mmol/L (-3-3) FiO2 28.0 Glucose (Fingerstick) 204mg/dL (70-99) Review of Systems Review of Systems no fever, chills chest pain Assessment and Plan Assessmemt and Plan Problems Medical Problems: (1) Pneumonia Status: Acute Problems: Comment Review of Relevant I have reviewed the following items missy (where applicable) has been applied. Labs Laboratory Tests Test 11/25/16 13:35 11/25/16 17:28 11/25/16 20:49 11/26/16 07:25 White Blood Count 12.5x10^3/uL (4.0-11.0) 8.7x10^3/uL (4.0-11.0) Red Blood Count 2.71x10^6/uL (3.50-5.40) 2.89x10^6/uL (3.50-5.40) Hemoglobin 8.6g/dL (12.0-15.5) 9.2g/dL (12.0-15.5) Hematocrit 26.3% (36.0-47.0) 28.3% (36.0-47.0) Mean Corpuscular Volume 97fL (79-100) 98fL (79-100) Mean Corpuscular Hemoglobin 32pg (25-35) 32pg (25-35) Mean Corpuscular Hemoglobin Concent 33g/dL (31-37) 33g/dL (31-37) Red Cell Distribution Width 15.8% (11.5-14.5) 15.8% (11.5-14.5) Platelet Count 314x10^3/uL (140-400) 326x10^3/uL (140-400) Neutrophils (%) (Auto) 78% (31-73) 89% (31-73) Lymphocytes (%) (Auto) 7% (24-48) 7% (24-48) Monocytes (%) (Auto) 15% (0-9) 4% (0-9) Eosinophils (%) (Auto) 0% (0-3) 0% (0-3) Basophils (%) (Auto) 0% (0-3) 0% (0-3) Neutrophils # (Auto) 9.8x10^3uL (1.8-7.7) 7.7x10^3uL (1.8-7.7) Lymphocytes # (Auto) 0.8x10^3/uL (1.0-4.8) 0.6x10^3/uL (1.0-4.8) Monocytes # (Auto) 1.8x10^3/uL (0.0-1.1) 0.3x10^3/uL (0.0-1.1) Eosinophils # (Auto) 0.0x10^3/uL (0.0-0.7) 0.0x10^3/uL (0.0-0.7) Basophils # (Auto) 0.0x10^3/uL (0.0-0.2) 0.0x10^3/uL (0.0-0.2) Prothrombin Time 17.8SEC (11.7-14.0) Prothromb Time International Ratio 1.6 (0.8-1.1) Sodium Level 143mmol/L (136-145) 142mmol/L (136-145) Potassium Level 4.5mmol/L (3.5-5.1) 4.4mmol/L (3.5-5.1) Chloride Level 106mmol/L (98-107) 105mmol/L (98-107) Carbon Dioxide Level 27mmol/L (21-32) 24mmol/L (21-32) Anion Gap 10 (6-14) 13 (6-14) Blood Urea Nitrogen 50mg/dL (7-20) 50mg/dL (7-20) Creatinine 2.4mg/dL (0.6-1.0) 2.2mg/dL (0.6-1.0) Estimated GFR (Cockcroft-Gault) 19.2 21.2 Glucose Level 132mg/dL (70-99) 191mg/dL (70-99) Calcium Level 9.2mg/dL (8.5-10.1) 9.6mg/dL (8.5-10.1) QT-Wuc-Y-Type Natriuretic Peptide 7124pg/mL (0-449) Glucose (Fingerstick) 117mg/dL (70-99) 172mg/dL (70-99) Segmented Neutrophils % 85% (35-66) Band Neutrophils % 8% (0-9) Lymphocytes % 5% (24-48) Monocytes % 2% (0-10) Platelet Estimate Adequate (ADEQUATE) Uric Acid 7.8mg/dL (2.6-6.0) Iron Level 40ug/dL (50-170) Total Iron Binding Capacity 217ug/dL (250-450) Iron Saturation 18% (15-34) Ferritin 473ng/mL (8-252) Creatine Kinase 101U/L (26-192) Vitamin B12 Level 356pg/mL (247-911) Serum Folate 5.10ng/ml (3.2-20.0) Test 11/26/16 07:59 11/26/16 10:05 11/26/16 12:08 Glucose (Fingerstick) 187mg/dL (70-99) 204mg/dL (70-99) O2 Saturation 96% (92-99) Arterial Blood pH 7.45 (7.35-7.45) Arterial Blood pCO2 at Patient Temp 33mmHg (35-46) Arterial Blood pO2 at Patient Temp 90mmHg (65-108) Arterial Blood HCO3 22mmol/L (21-28) Arterial Blood Base Excess -1mmol/L (-3-3) FiO2 28.0 Laboratory Tests Test 11/25/16 17:28 11/25/16 20:49 11/26/16 07:25 11/26/16 07:59 Glucose (Fingerstick) 117mg/dL (70-99) 172mg/dL (70-99) 187mg/dL (70-99) White Blood Count 8.7x10^3/uL (4.0-11.0) Red Blood Count 2.89x10^6/uL (3.50-5.40) Hemoglobin 9.2g/dL (12.0-15.5) Hematocrit 28.3% (36.0-47.0) Mean Corpuscular Volume 98fL (79-100) Mean Corpuscular Hemoglobin 32pg (25-35) Mean Corpuscular Hemoglobin Concent 33g/dL (31-37) Red Cell Distribution Width 15.8% (11.5-14.5) Platelet Count 326x10^3/uL (140-400) Neutrophils (%) (Auto) 89% (31-73) Lymphocytes (%) (Auto) 7% (24-48) Monocytes (%) (Auto) 4% (0-9) Eosinophils (%) (Auto) 0% (0-3) Basophils (%) (Auto) 0% (0-3) Neutrophils # (Auto) 7.7x10^3uL (1.8-7.7) Lymphocytes # (Auto) 0.6x10^3/uL (1.0-4.8) Monocytes # (Auto) 0.3x10^3/uL (0.0-1.1) Eosinophils # (Auto) 0.0x10^3/uL (0.0-0.7) Basophils # (Auto) 0.0x10^3/uL (0.0-0.2) Segmented Neutrophils % 85% (35-66) Band Neutrophils % 8% (0-9) Lymphocytes % 5% (24-48) Monocytes % 2% (0-10) Platelet Estimate Adequate (ADEQUATE) Sodium Level 142mmol/L (136-145) Potassium Level 4.4mmol/L (3.5-5.1) Chloride Level 105mmol/L (98-107) Carbon Dioxide Level 24mmol/L (21-32) Anion Gap 13 (6-14) Blood Urea Nitrogen 50mg/dL (7-20) Creatinine 2.2mg/dL (0.6-1.0) Estimated GFR (Cockcroft-Gault) 21.2 Glucose Level 191mg/dL (70-99) Uric Acid 7.8mg/dL (2.6-6.0) Calcium Level 9.6mg/dL (8.5-10.1) Iron Level 40ug/dL (50-170) Total Iron Binding Capacity 217ug/dL (250-450) Iron Saturation 18% (15-34) Ferritin 473ng/mL (8-252) Creatine Kinase 101U/L (26-192) Vitamin B12 Level 356pg/mL (247-911) Serum Folate 5.10ng/ml (3.2-20.0) Test 4/5/17 10:05 11/26/16 12:08 O2 Saturation 96% (92-99) Arterial Blood pH 7.45 (7.35-7.45) Arterial Blood pCO2 at Patient Temp 33mmHg (35-46) Arterial Blood pO2 at Patient Temp 90mmHg (65-108) Arterial Blood HCO3 22mmol/L (21-28) Arterial Blood Base Excess -1mmol/L (-3-3) FiO2 28.0 Glucose (Fingerstick) 204mg/dL (70-99) Microbiology 11/25/16 Blood Culture - Preliminary, Resulted NO GROWTH AFTER 1 DAY Medications Current Medications Ondansetron HCl (Zofran) 4 mg PRN Q6HRS PRN IV NAUSEA/VOMITING; Start 11/25/16 at 12:30 Morphine Sulfate 1 mg PRN Q1HR PRN IV PAIN; Start 11/25/16 at 12:30 Acetaminophen/ Hydrocodone Bitart (Lortab 5/325) 1 tab PRN Q4HRS PRN PO MILD PAIN, 2ND CHOICE Last administered on 11/25/16 20:13; Start 11/25/16 at 12:30 Acetaminophen (Tylenol) 650 mg PRN Q6HRS PRN PO Headaches, Temp > 101.5F; Start 11/25/16 at 12:30 Heparin Sodium (Porcine) 5000 unit 5,000 unit Q8HRS SQ Last administered on 11/26 06:09; Start 11/25/16 at 14:00 Piperacillin Sod/ Tazobactam Sod/ Sodium Chloride (Zosyn/Iv Sodium Chloride 0.9 % 50ml) 50 ml @ 100 mls/hr Q6HRS IV ; Start 11/25/16 at 18:00; Status UNV Piperacillin Sod/ Tazobactam Sod (Zosyn Per Pharmacy) 1 each PRN DAILY PRN MC SEE COMMENTS; Start 11/25/16 at 12:30 Vancomycin HCl 1 each 1 each PRN DAILY PRN MC SEE COMMENTS Last administered on 11/26/16 14:28; Start 11/25/16 at 12:30 Vancomycin HCl 1.75 gm/Sodium Chloride 500 ml @ 250 mls/hr 1X ONCE IV ; Start 11/25/16 at 12:30; Stop 11/25/16 at 14:29; Status UNV Vancomycin HCl/ Sodium Chloride (Iv Sodium Chloride 0.9% 500ml Bag) 500 ml @ 250 mls/hr 1X ONCE IV Last administered on 11/25/16 14:18; Start 11/25/16 at 14 :00; Stop 11/25/16 at 15:59; Status DC Albuterol/ Ipratropium (Duoneb) 3 ml RTQID NEB Last administered on 11/26/16 07 :45; Start 11/25/16 at 16:00; Stop 11/26/16 at 09:29; Status DC Albuterol Sulfate (Ventolin Neb Soln) 2.5 mg PRN Q4HRS PRN NEB SHORTNESS OF BREATH; Start 11/25/16 at 14:00 Insulin Aspart (Novolog) 0-9 UNITS TIDWMEALS SQ Last administered on 11/26/16 12:55; Start 11/25/16 at 17:00 Dextrose (Dextrose 50%-Water Syringe) 12.5 gm PRN Q15MIN PRN IV SEE COMMENTS; Start 11/25/16 at 14:00 Hydralazine HCl 10 mg 10 mg PRN Q4HRS PRN IVP ELEVATED BP, SEE COMMENTS; Start 11/25/16 at 14:00 Piperacillin Sod/ Tazobactam Sod 2.25 gm/Sodium Chloride 50 ml @ 100 mls/hr Q8HRS IV Last administered on 11/26/16 05:51; Start 11/25/16 at 15:00 Vancomycin HCl/ Sodium Chloride (Iv Sodium Chloride 0.9% 250ml) 250 ml @ 166.667 mls/hr Q24H IV ; Start 11/26/16 at 14:00 Vancomycin HCl 1 each 1X ONCE MC ; Start 11/27/16 at 13:30; Stop 11/27/16 at 13: 31 Methylprednisolone Sodium Succinate (Solu-Medrol 40mg Vial) 40 mg Q8HRS IV Last administered on 11/26/16 05:51; Start 11/25/16 at 17:00; Stop 11/26/16 at 09: 27; Status DC Methylprednisolone Sodium Succinate (Solu-Medrol 125mg Vial) 60 mg Q8HRS IV ; Start 11/26/16 at 14:00 Albuterol/ Ipratropium 3 ml 3 ml Q4HRS NEB Last administered on 4/5/17at 11:25 ; Start 11/26/16 at 12:00 Magnesium Sulfate/ Dextrose (Magnesium Sulfate PREMIX 2GM) 50 ml @ 25 mls/hr PRN DAILY PRN IV for Mag < 1.7 on am labs; Start 11/26/16 at 13:15 Docusate Sodium (Colace) 100 mg DAILY PO ; Start 11/26/16 at 14:00 Glipizide (Glucotrol) 5 mg DAILY PO ; Start 11/26/16 at 14:00 Nystatin (Nystop) 1 sapna BID TP ; Start 11/26/16 at 14:00 Gabapentin 300 mg 300 mg TID PO ; Start 11/26/16 at 14:00 Iron Sucrose/ Sodium Chloride (Venofer/Iv Sodium Chloride 0.9% 100ml) 110 ml @ 55 mls/hr 3X/WEEK IV ; Start 11/26/16 at 15:00; Stop 12/05/16 at 10:59 Active Scripts Active Reported Nystatin 15 Gm Powder 1 Sapna TP BID Lisinopril 20 Mg Tablet 20 Mg PO DAILY Glucotrol (Glipizide) 5 Mg Tablet 5 Mg PO DAILY Gabapentin 300 Mg Capsule 300 Mg PO TID Furosemide 40 Mg Tablet 40 Mg IVP DAILY Docusate Sodium 100 Mg Capsule 100 Mg PO DAILY Vitals/I & O Vital Sign - Last 24 Hours 11/25/16 11/25/16 11/25/16 11/25/16 16:55 19:26 19:59 20:00 Temp 98.1 98.1 Pulse 89 Resp 18 B/P 169/64 Pulse Ox 92 96 94 O2 Delivery Room Air Nasal Cannula Nasal Cannula Nasal Cannula O2 Flow Rate 2.0 2.0 2.0 11/25/16 11/25/16 11/25/16 11/26/16 20:13 21:13 23:26 03:37 Temp 97.7 96.4 97.7 96.4 Pulse 77 79 Resp 16 24 B/P 146/61 169/81 Pulse Ox 94 95 O2 Delivery Nasal Cannula Nasal Cannula Nasal Cannula Nasal Cannula O2 Flow Rate 2.0 2.0 2.0 2.0 11/26/16 11/26/16 11/26/16 11/26/16 07:00 07:45 08:00 10:10 Temp 96.6 96.6 Pulse 85 Resp 22 B/P 158/67 Pulse Ox 94 93 96 O2 Delivery Nasal Cannula Nasal Cannula Bi-pap BiPAP/CPAP O2 Flow Rate 2.0 2.0 2.0 11/26/16 11/26/16 11:00 11:25 Temp 97.8 97.8 Pulse 81 Resp 22 B/P 168/71 Pulse Ox 94 96 O2 Delivery Nasal Cannula BiPAP/CPAP O2 Flow Rate 2.0 Intake and Output 11/25/16 11/25/16 11/26/16 15:00 23:00 07:00 Intake Total 240 ml 720 ml 0 ml Output Total 300 ml Balance 240 ml 720 ml -300 ml ADDISON SPANN MD Nov 26, 2016 15:01
[2016-11-26 15:03] LABS: ALBUMIN 2.5 g/dL (3.4-5.0); ALBUMIN/GLOBULIN RATIO 0.5 (1.0-1.7); CALCIUM 9.7 mg/dL (8.5-10.1); CREATININE 2.2 mg/dL (0.6-1.0); GFR 21.2; TOTAL BILIRUBIN 0.3 mg/dL (0.2-1.0); TOTAL PROTEIN 7.8 g/dL (6.4-8.2)
[2016-11-26] MEDS: VANCOMYCIN 1.25 GM in IV NORMAL SALINE 250ML 250 ML IV SCH (15:13)
[2016-11-26] MEDS: DOCUSATE SODIUM 100 MG CAPSULE. PO SCH (15:13)
[2016-11-26] MEDS: GLIPIZIDE 5 MG TABLET. PO SCH (15:13)
[2016-11-26] MEDS: methylPREDNISolone SOD SUCC PF 125 MG/2 ML VIAL. IV SCH ×2 (15:13→21:08)
[2016-11-26] MEDS: GABAPENTIN 300 MG CAPSULE. PO SCH ×2 (15:13→21:21)
--- NOTE | 2016-11-26 15:44 | RAD ---
Abdominal ultrasound - limited to the kidneys Indication: Acute renal failure, chronic kidney disease. Comparison: Ultrasound renal 11/25/2016. Procedure: Transabdominal ultrasound images are obtained of the kidneys and bladder. Findings: Examination is essentially nondiagnostic secondary to patient body habitus. Aorta and IVC are not visualized. Kidneys are not well visualized. Urinary bladder appears distended with estimated prevoid bladder volume of 1240 mL. Impression: 1. Examination is nondiagnostic for evaluation of the kidneys. 2. Severely distended urinary bladder. Calculated bladder volume is 1240 mL.
[2016-11-26] MEDS: NYSTATIN TOPICAL POWDER 15GM BOTTLE. TP SCH ×2 (17:03→21:21)
[2016-11-26] MEDS: IRON SUCROSE COMPLEX 200 MG in IV NORMAL SALINE 100ML 100 ML IV SCH (17:12)
[2016-11-26 19:51] VITALS: BP 151/61
[2016-11-26] MEDS: HYDROCODONE/APAP 5/325MG TABLET. PO PRN (21:34)
[2016-11-26 23:10] VITALS: BP 113/56
[2016-11-27] MEDS: IPRATRPIUM/ALBUTEROL 0.5/2.5MG 3 ML NEBU. NEB SCH ×6 (00:01→21:07)
[2016-11-27 03:30] VITALS: BP 150/72
[2016-11-27 04:31] LABS: ALBUMIN 2.4 g/dL (3.4-5.0); CALCIUM 9.5 mg/dL (8.5-10.1); CREATININE 2.1 mg/dL (0.6-1.0); GFR 22.4; PHOSPHORUS 4.2 mg/dL (2.6-4.7); POTASSIUM 3.8 mmol/L (3.5-5.1)
[2016-11-27] MEDS: PIPERACILLIN/TAZOBACTAM 2.25 GM in IV NORMAL SALINE 50ML 50 ML IV SCH ×3 (05:55→21:49)
[2016-11-27] MEDS: methylPREDNISolone SOD SUCC PF 125 MG/2 ML VIAL. IV SCH ×3 (05:56→21:48)
[2016-11-27] MEDS: HEPARIN PF for SUB-Q USE 5,000 UNIT/0.5 ML VIAL. SQ SCH (06:07)
--- NOTE | 2016-11-27 06:27 | CONS ---
DATE OF CONSULTATION: PRIMARY PHYSICIAN: ____ REASON FOR CONSULTATION: Acute on chronic renal insufficiency. HISTORY OF PRESENT ILLNESS: The patient is an 86-year-old obese female with previous history of tobaccoism, longstanding diabetes, hypertension and obesity. She was not known to have some oozing from her lower extremity and was eventually taken to [facility]; where she was diagnosed with lower extremity cellulitis. She did have some fevers, chills and was treated with antibiotics for two weeks. She still has significant hypersensitivity in the lower extremities. However, during this timeframe, she was felt to have pneumonia with coughing yellowish phlegm. She was found to have healthcare-associated pneumonia and was transferred here for further evaluation. She is also felt to have a creatinine of 1.7-2.3, during this hospitalization; she was on Lasix at that time. She now has a right-sided pneumonia as reviewed by Dr. Yuen and as noted on her CT reports. In the setting, we were asked to see her for further evaluation of renal dysfunction. PAST MEDICAL HISTORY: 1. Positive for disease. 2. CHF with preserved LV function. 3. Possible chronic obstructive pulmonary disease. 4. Exogenous obesity. 5. Longstanding diabetes possible retinopathy. 6. Hypertension. 7. Stroke. 8. History of uterine cancer. SOCIAL HISTORY: Smoked for 30-40 years before quitting about 20-30 years ago. FAMILY HISTORY: Positive for son with one kidney removed due to "____ to his kidney stones course". Otherwise, grossly negative as reviewed with the patient and the son in the room. KILLIAN ACOSTA MD DR: EVI/salvatore JOB#: [id number] / [id number]
[2016-11-27 07:00] VITALS: BP 147/69
[2016-11-27] MEDS: GABAPENTIN 300 MG CAPSULE. PO SCH ×3 (08:44→21:47)
[2016-11-27] MEDS: NYSTATIN TOPICAL POWDER 15GM BOTTLE. TP SCH ×2 (08:45→21:48)
[2016-11-27] MEDS: DOCUSATE SODIUM 100 MG CAPSULE. PO SCH (08:45)
[2016-11-27] MEDS: HYDROCODONE/APAP 5/325MG TABLET. PO PRN ×2 (08:45→15:05)
[2016-11-27] MEDS: GLIPIZIDE 5 MG TABLET. PO SCH (08:45)
[2016-11-27] MEDS: INSULIN ASPART 300 UNITS/3 ML INSULN.PEN SQ SCH ×3 (08:56→17:52)
--- NOTE | 2016-11-27 09:36 | PDOC ---
PULMONARY PROGRESS NOTES Subjective Pt feels better Vitals Vital Signs Date Time Temp Pulse Resp B/P Pulse Ox O2 Delivery O2 Flow Rate FiO2 11/27/16 08:45 Nasal Cannula 2.0 11/27/16 07:41 95 11/27/16 07:00 98.2 80 20 147/69 98.2 General: Alert Lungs: Wheezing (improved) Cardiovascular: S1 Abdomen: Soft Neuro Exam: Alert Extremities: No Edema Skin: Warm Labs Laboratory Tests Test 11/25/16 13:35 11/25/16 17:28 11/25/16 20:49 11/26/16 07:25 White Blood Count 12.5x10^3/uL (4.0-11.0) 8.7x10^3/uL (4.0-11.0) Red Blood Count 2.71x10^6/uL (3.50-5.40) 2.89x10^6/uL (3.50-5.40) Hemoglobin 8.6g/dL (12.0-15.5) 9.2g/dL (12.0-15.5) Hematocrit 26.3% (36.0-47.0) 28.3% (36.0-47.0) Mean Corpuscular Volume 97fL (79-100) 98fL (79-100) Mean Corpuscular Hemoglobin 32pg (25-35) 32pg (25-35) Mean Corpuscular Hemoglobin Concent 33g/dL (31-37) 33g/dL (31-37) Red Cell Distribution Width 15.8% (11.5-14.5) 15.8% (11.5-14.5) Platelet Count 314x10^3/uL (140-400) 326x10^3/uL (140-400) Neutrophils (%) (Auto) 78% (31-73) 89% (31-73) Lymphocytes (%) (Auto) 7% (24-48) 7% (24-48) Monocytes (%) (Auto) 15% (0-9) 4% (0-9) Eosinophils (%) (Auto) 0% (0-3) 0% (0-3) Basophils (%) (Auto) 0% (0-3) 0% (0-3) Neutrophils # (Auto) 9.8x10^3uL (1.8-7.7) 7.7x10^3uL (1.8-7.7) Lymphocytes # (Auto) 0.8x10^3/uL (1.0-4.8) 0.6x10^3/uL (1.0-4.8) Monocytes # (Auto) 1.8x10^3/uL (0.0-1.1) 0.3x10^3/uL (0.0-1.1) Eosinophils # (Auto) 0.0x10^3/uL (0.0-0.7) 0.0x10^3/uL (0.0-0.7) Basophils # (Auto) 0.0x10^3/uL (0.0-0.2) 0.0x10^3/uL (0.0-0.2) Prothrombin Time 17.8SEC (11.7-14.0) Prothromb Time International Ratio 1.6 (0.8-1.1) Sodium Level 143mmol/L (136-145) 142mmol/L (136-145) Potassium Level 4.5mmol/L (3.5-5.1) 4.4mmol/L (3.5-5.1) Chloride Level 106mmol/L (98-107) 105mmol/L (98-107) Carbon Dioxide Level 27mmol/L (21-32) 24mmol/L (21-32) Anion Gap 10 (6-14) 13 (6-14) Blood Urea Nitrogen 50mg/dL (7-20) 50mg/dL (7-20) Creatinine 2.4mg/dL (0.6-1.0) 2.2mg/dL (0.6-1.0) Estimated GFR (Cockcroft-Gault) 19.2 21.2 Glucose Level 132mg/dL (70-99) 191mg/dL (70-99) Calcium Level 9.2mg/dL (8.5-10.1) 9.6mg/dL (8.5-10.1) EK-Xcq-C-Type Natriuretic Peptide 7124pg/mL (0-449) Glucose (Fingerstick) 117mg/dL (70-99) 172mg/dL (70-99) Segmented Neutrophils % 85% (35-66) Band Neutrophils % 8% (0-9) Lymphocytes % 5% (24-48) Monocytes % 2% (0-10) Platelet Estimate Adequate (ADEQUATE) Uric Acid 7.8mg/dL (2.6-6.0) Iron Level 40ug/dL (50-170) Total Iron Binding Capacity 217ug/dL (250-450) Iron Saturation 18% (15-34) Ferritin 473ng/mL (8-252) Creatine Kinase 101U/L (26-192) Vitamin B12 Level 356pg/mL (247-911) Serum Folate 5.10ng/ml (3.2-20.0) Test 11/26/16 07:59 11/26/16 10:05 11/26/16 12:08 11/26/16 14:10 Glucose (Fingerstick) 187mg/dL (70-99) 204mg/dL (70-99) O2 Saturation 96% (92-99) Arterial Blood pH 7.45 (7.35-7.45) Arterial Blood pCO2 at Patient Temp 33mmHg (35-46) Arterial Blood pO2 at Patient Temp 90mmHg (65-108) Arterial Blood HCO3 22mmol/L (21-28) Arterial Blood Base Excess -1mmol/L (-3-3) FiO2 28.0 Sodium Level 141mmol/L (136-145) Potassium Level 4.0mmol/L (3.5-5.1) Chloride Level 103mmol/L (98-107) Carbon Dioxide Level 23mmol/L (21-32) Anion Gap 15 (6-14) Blood Urea Nitrogen 52mg/dL (7-20) Creatinine 2.2mg/dL (0.6-1.0) Estimated GFR (Cockcroft-Gault) 21.2 BUN/Creatinine Ratio 24 (6-20) Glucose Level 192mg/dL (70-99) Calcium Level 9.7mg/dL (8.5-10.1) Total Bilirubin 0.3mg/dL (0.2-1.0) Aspartate Amino Transf (AST/SGOT) 63U/L (15-37) Alanine Aminotransferase (ALT/SGPT) 66U/L (14-59) Alkaline Phosphatase 202U/L (46-116) Total Protein 7.8g/dL (6.4-8.2) Albumin 2.5g/dL (3.4-5.0) Albumin/Globulin Ratio 0.5 (1.0-1.7) Test 11/26/16 17:09 11/26/16 20:23 11/27/16 02:50 11/27/16 08:08 Glucose (Fingerstick) 205mg/dL (70-99) 253mg/dL (70-99) 209mg/dL (70-99) Hemoglobin 8.6g/dL (12.0-15.5) Sodium Level 142mmol/L (136-145) Potassium Level 3.8mmol/L (3.5-5.1) Chloride Level 106mmol/L (98-107) Carbon Dioxide Level 24mmol/L (21-32) Anion Gap 12 (6-14) Blood Urea Nitrogen 57mg/dL (7-20) Creatinine 2.1mg/dL (0.6-1.0) Estimated GFR (Cockcroft-Gault) 22.4 Glucose Level 235mg/dL (70-99) Calcium Level 9.5mg/dL (8.5-10.1) Phosphorus Level 4.2mg/dL (2.6-4.7) Magnesium Level 2.4mg/dL (1.8-2.4) Albumin 2.4g/dL (3.4-5.0) Laboratory Tests Test 11/26/16 10:05 11/26/16 12:08 11/26/16 14:10 11/26/16 17:09 O2 Saturation 96% (92-99) Arterial Blood pH 7.45 (7.35-7.45) Arterial Blood pCO2 at Patient Temp 33mmHg (35-46) Arterial Blood pO2 at Patient Temp 90mmHg (65-108) Arterial Blood HCO3 22mmol/L (21-28) Arterial Blood Base Excess -1mmol/L (-3-3) FiO2 28.0 Glucose (Fingerstick) 204mg/dL (70-99) 205mg/dL (70-99) Sodium Level 141mmol/L (136-145) Potassium Level 4.0mmol/L (3.5-5.1) Chloride Level 103mmol/L (98-107) Carbon Dioxide Level 23mmol/L (21-32) Anion Gap 15 (6-14) Blood Urea Nitrogen 52mg/dL (7-20) Creatinine 2.2mg/dL (0.6-1.0) Estimated GFR (Cockcroft-Gault) 21.2 BUN/Creatinine Ratio 24 (6-20) Glucose Level 192mg/dL (70-99) Calcium Level 9.7mg/dL (8.5-10.1) Total Bilirubin 0.3mg/dL (0.2-1.0) Aspartate Amino Transf (AST/SGOT) 63U/L (15-37) Alanine Aminotransferase (ALT/SGPT) 66U/L (14-59) Alkaline Phosphatase 202U/L (46-116) Total Protein 7.8g/dL (6.4-8.2) Albumin 2.5g/dL (3.4-5.0) Albumin/Globulin Ratio 0.5 (1.0-1.7) Test 11/26/16 20:23 11/27/16 02:50 11/27/16 08:08 Glucose (Fingerstick) 253mg/dL (70-99) 209mg/dL (70-99) Hemoglobin 8.6g/dL (12.0-15.5) Sodium Level 142mmol/L (136-145) Potassium Level 3.8mmol/L (3.5-5.1) Chloride Level 106mmol/L (98-107) Carbon Dioxide Level 24mmol/L (21-32) Anion Gap 12 (6-14) Blood Urea Nitrogen 57mg/dL (7-20) Creatinine 2.1mg/dL (0.6-1.0) Estimated GFR (Cockcroft-Gault) 22.4 Glucose Level 235mg/dL (70-99) Calcium Level 9.5mg/dL (8.5-10.1) Phosphorus Level 4.2mg/dL (2.6-4.7) Magnesium Level 2.4mg/dL (1.8-2.4) Albumin 2.4g/dL (3.4-5.0) Medications Active Scripts Medications Dose Route/Sig Days Date Category Nystatin 15 Gm Powder 1 Sapna TP BID 11/25/16 Reported Lisinopril 20 Mg Tablet 20 Mg PO DAILY 11/25/16 Reported Glucotrol (Glipizide) 5 Mg Tablet 5 Mg PO DAILY 11/25/16 Reported Gabapentin 300 Mg Capsule 300 Mg PO TID 11/25/16 Reported Furosemide 40 Mg Tablet 40 Mg IVP DAILY 11/25/16 Reported Docusate Sodium 100 Mg Capsule 100 Mg PO DAILY 11/25/16 Reported Impression . 1. Dyspnea / Acute hypoxic Respiratory failure secondary to multifactorial etiologies including acute exacerbation of chronic obstructive pulmonary disease along with pneumonia involving the right lung. 2. Abnormal CT chest with extensive pneumonia in the right lung. We will cover for gram-negative and gram-positive organisms for healthcare-associated pneumonia. 3. Underlying chronic obstructive pulmonary disease with exacerbation. 4. Acute kidney injury. 5. Small to moderate right pleural effusion. We will monitor for now. Plan . 1. clinically improved with BIPAP. We will continue with broad-spectrum antibiotics. 2. Continue with DuoNebs.q 4 hr 3. Solu-Medrol 4. Follow sputum and blood cultures. 5. Follow chest x-rays. 6. Discussed with RN. CARITO SUBRAMANIAN MD Nov 27, 2016 09:36
[2016-11-27] MEDS ORDERED: BARIUM SULFATE 40% (APPLE) 148 GM PWD. PO ONE (10:00)
--- NOTE | 2016-11-27 10:59 | PDOC ---
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 feeling wore out when she got OOb to chair CVS: no Orthopnea, + Pleuritic CP RESP: subj SOB, + SOLIS vs fatigue GI: no Nausea, no Vomiting : no Dysuria, no Urgency - Hematuria after Presley was placed OBJECTIVE Vital Signs Vital Signs Date Time Temp Pulse Resp B/P Pulse Ox O2 Delivery O2 Flow Rate FiO2 11/27/16 08:45 Nasal Cannula 2.0 11/27/16 07:41 95 11/27/16 07:00 98.2 80 20 147/69 98.2 I & 0 Intake and Output 11/27/16 07:00 Intake Total 580 ml Output Total 370 ml Balance 210 ml Intake Oral 500 ml IV Total 50 ml Blood Product IV Normal Saline Flush 30 ml Output Urine Total 370 ml PHYSICAL EXAM Physical Exam General Appearance: Awake Alert Oriented x 3 In no Distress Eyes: VIsion Unchanged Conjunctiva Normal EN: No EN Drainage Mucous Memb. moist, many missing teeth Neck: no JVD min JVP Supple no Thyromegaly CVS: S1 S2 ? Murmur No Gallop No Rub + Edema (some Brawny); +1 pulse in DP Resp: no Rales no Rhonchi no Acc. Muscle use; distal BS GI: BS +ve NO Bruit Non Tender Non Distended; Obese : no CVA tenderness; no Suprapubic Tenderness SKIN: ? Rash on lower ext vs hypersensitivity Breast Exam deferred Mu.Sk: Adequate ROM no Muscle Atrophy Heme: Unable to palpate Obvious LAD no palp Splenomegaly NEURO: Good Strength and Tone Cranial Nerves II - XII grossly intact Psych: ? Depressed no Active hallucination Assessment & Plan ROB - ? due to diuresis. Creat stable today but Uo is marginal. Now with Hematuria too, but had significant Urinary retention yest so Presley placed and watch UO. Current FLuid and E-lyte status does not necessitate emergent need for Dialysis. Will re-evaluate for Dialysis in am Oliguria - cannot R/o ATN per se. No UA done Hematuria - URO eval Urinary retention - URO eval CKD III/ Iv - baseline Creat is thot to be 1.7, (DM/ HTNsive / NS cannot beruled out, besides obesity related etios) but she was 2.3 OA at [facility]. will need OP labs from Dr Ferraro. e is not aware of diagnosis of CKD per se Anemia: (fe def ) and some suspect due to recent hospitalization. start Epogen Transfuse as needed. IV Iron Proteinuria as noted from UA at [facility] - quantitate with 24-hr urine but now willbe abnormal due to Hematuria Pn - doubt pulm Renal syndrome - will check ESR and ProCal HTN: Current BP meds reviewed. See orders for changes. Edema - ? Liver vs RHF etio. Obesity related phenomenon. May not be able to clear edema without [employer] Discussed Plan of Care and prognosis etc. at length with family (son) COMMENT/RELEVANT DATA Meds Current Medications Medications (Trade) Dose Ordered Sig/Marga Start Time Stop Time Status Last Admin Dose Admin Acetaminophen (Tylenol) 650 mg PRN Q6HRS PRN 11/25/16 12:30 Acetaminophen/ Hydrocodone Bitart (Lortab 5/325) 1 tab PRN Q4HRS PRN 11/25/16 12:30 11/27/16 08:45 1 TAB Albuterol Sulfate (Ventolin Neb Soln) 2.5 mg PRN Q4HRS PRN 11/25/16 14:00 Albuterol/ Ipratropium (Duoneb) 3 ml RTQID 11/25/16 16:00 11/26/16 09:29 DC 11/26/16 07:45 3 ML Albuterol/ Ipratropium 3 ml 3 ml Q4HRS 11/26/16 12:00 11/27/16 07:39 3 ML Barium Sulfate (Varibar Thin Liquid Apple) 148 gm 1X ONCE 11/27/16 10:00 11/27/16 10:01 DC Dextrose (Dextrose 50%-Water Syringe) 12.5 gm PRN Q15MIN PRN 11/25/16 14:00 Docusate Sodium (Colace) 100 mg DAILY 11/26/16 14:00 11/27/16 08:45 100 MG Gabapentin 300 mg 300 mg TID 11/26/16 14:00 11/27/16 08:44 300 MG Glipizide (Glucotrol) 5 mg DAILY 11/26/16 14:00 11/27/16 08:45 5 MG Heparin Sodium (Porcine) 5000 unit 5,000 unit Q8HRS 11/25/16 14:00 11/27/16 06:07 5,000 UNIT Hydralazine HCl 10 mg 10 mg PRN Q4HRS PRN 11/25/16 14:00 Insulin Aspart (Novolog) 0-9 UNITS TIDWMEALS 11/25/16 17:00 11/27/16 08:56 5 UNITS Iron Sucrose/ Sodium Chloride (Venofer/Iv Sodium Chloride 0.9% 100ml) 110 ml @ 55 mls/hr 3X/WEEK 11/26/16 15:00 12/05/16 10:59 11/26/16 17:12 55 MLS/HR Magnesium Sulfate/ Dextrose (Magnesium Sulfate PREMIX 2GM) 50 ml @ 25 mls/hr PRN DAILY PRN 11/26/16 13:15 Methylprednisolone Sodium Succinate (Solu-Medrol 40mg Vial) 40 mg Q8HRS 11/25/16 17:00 11/26/16 09:27 DC 11/26/16 05:51 40 MG Methylprednisolone Sodium Succinate (Solu-Medrol 125mg Vial) 60 mg Q8HRS 11/26/16 14:00 11/27/16 05:56 60 MG Morphine Sulfate 1 mg PRN Q1HR PRN 11/25/16 12:30 Nystatin (Nystop) 1 natasha BID 11/26/16 14:00 11/27/16 08:45 1 NATASHA Ondansetron HCl (Zofran) 4 mg PRN Q6HRS PRN 11/25/16 12:30 Piperacillin Sod/ Tazobactam Sod (Zosyn Per Pharmacy) 1 each PRN DAILY PRN 11/25/16 12:30 Piperacillin Sod/ Tazobactam Sod 2.25 gm/Sodium Chloride 50 ml @ 100 mls/hr Q8HRS 11/25/16 15:00 11/27/16 05:55 100 MLS/HR Piperacillin Sod/ Tazobactam Sod/ Sodium Chloride (Zosyn/Iv Sodium Chloride 0.9% 50ml) 50 ml @ 100 mls/hr Q6HRS 11/25/16 18:00 UNV Vancomycin HCl 1 each 1X ONCE 11/27/16 13:30 11/27/16 13:31 Vancomycin HCl 1.75 gm/Sodium Chloride 500 ml @ 250 mls/hr 1X ONCE 11/25/16 12:30 11/25/16 14:29 UNV Vancomycin HCl 1 each 1 each PRN DAILY PRN 11/25/16 12:30 11/26/16 14:28 1 EACH Vancomycin HCl/ Sodium Chloride (Iv Sodium Chloride 0.9% 250ml) 250 ml @ 166.667 mls/hr Q24H 11/26/16 14:00 11/26/16 15:13 166.667 MLS/HR Vancomycin HCl/ Sodium Chloride (Iv Sodium Chloride 0.9% 500ml Bag) 500 ml @ 250 mls/hr 1X ONCE 11/25/16 14:00 11/25/16 15:59 DC 11/25/16 14:18 250 MLS/HR Lab Laboratory Tests Test 11/26/16 12:08 11/26/16 14:10 11/26/16 17:09 11/26/16 20:23 Glucose (Fingerstick) 204mg/dL (70-99) 205mg/dL (70-99) 253mg/dL (70-99) Sodium Level 141mmol/L (136-145) Potassium Level 4.0mmol/L (3.5-5.1) Chloride Level 103mmol/L (98-107) Carbon Dioxide Level 23mmol/L (21-32) Anion Gap 15 (6-14) Blood Urea Nitrogen 52mg/dL (7-20) Creatinine 2.2mg/dL (0.6-1.0) Estimated GFR (Cockcroft-Gault) 21.2 BUN/Creatinine Ratio 24 (6-20) Glucose Level 192mg/dL (70-99) Calcium Level 9.7mg/dL (8.5-10.1) Total Bilirubin 0.3mg/dL (0.2-1.0) Aspartate Amino Transf (AST/SGOT) 63U/L (15-37) Alanine Aminotransferase (ALT/SGPT) 66U/L (14-59) Alkaline Phosphatase 202U/L (46-116) Total Protein 7.8g/dL (6.4-8.2) Albumin 2.5g/dL (3.4-5.0) Albumin/Globulin Ratio 0.5 (1.0-1.7) Test 11/27/16 02:50 11/27/16 08:08 Hemoglobin 8.6g/dL (12.0-15.5) Sodium Level 142mmol/L (136-145) Potassium Level 3.8mmol/L (3.5-5.1) Chloride Level 106mmol/L (98-107) Carbon Dioxide Level 24mmol/L (21-32) Anion Gap 12 (6-14) Blood Urea Nitrogen 57mg/dL (7-20) Creatinine 2.1mg/dL (0.6-1.0) Estimated GFR (Cockcroft-Gault) 22.4 Glucose Level 235mg/dL (70-99) Calcium Level 9.5mg/dL (8.5-10.1) Phosphorus Level 4.2mg/dL (2.6-4.7) Magnesium Level 2.4mg/dL (1.8-2.4) Albumin 2.4g/dL (3.4-5.0) Glucose (Fingerstick) 209mg/dL (70-99) KILLIAN ACOSTA MD Nov 27, 2016 10:59
[2016-11-27 11:00] VITALS: BP 154/63
--- NOTE | 2016-11-27 11:46 | PDOC ---
PROGRESS NOTES Chief Complaint Chief Complaint pna 1. acute resp failure with HAP 2. recent bl leg cellulitis 3. h/o systolic CHF EF 40% 4. h/o CAD 5. ROB on CKD3, ATN 6. dm2 7. COPD 8. h/o stroke 9. morbid obesity 10. HTN 11.sepsis with 1 12. moderate PHTN 13. urinary retention 14. hematuria with anthony plan: 1. card, pulm, renal consulted 2. CXR, CT , renal US done 3. labs am 4. ssi, duoneb. solumedrol tid 5. cont home meds, hold lasix for now 6. blcx, sputum cx. add vanco and zosyn 7. dvt ppx ptot CT chest showed possible renal mass, may need CT, but with ROB , CT wo contrast is not ideal for now. renal aware. Swallow eval pending add levemir since on high dose solumedrol, SSI. get URo consult, dc heparin for now History of Present Illness History of Present Illness choked 11/26 then cough a lot on NC 2-3L on anthony 11/26, hematuria, oliguria, US showed distended bladder Vitals Vitals Vital Signs Date Time Temp Pulse Resp B/P Pulse Ox O2 Delivery O2 Flow Rate FiO2 11/27/16 08:45 Nasal Cannula 2.0 11/27/16 07:41 95 11/27/16 07:00 98.2 80 20 147/69 98.2 Physical Exam General: Alert, Oriented X3, Cooperative Heart: Regular rate, Normal S1 (mild ) Lungs: Crackles (bl mild crackles, bl mild rhonchis) Abdomen: Normal bowel sounds, Soft Extremities: No clubbing, No cyanosis Labs LABS Laboratory Tests Test 11/26/16 12:08 11/26/16 14:10 11/26/16 17:09 11/26/16 20:23 Glucose (Fingerstick) 204mg/dL (70-99) 205mg/dL (70-99) 253mg/dL (70-99) Sodium Level 141mmol/L (136-145) Potassium Level 4.0mmol/L (3.5-5.1) Chloride Level 103mmol/L (98-107) Carbon Dioxide Level 23mmol/L (21-32) Anion Gap 15 (6-14) Blood Urea Nitrogen 52mg/dL (7-20) Creatinine 2.2mg/dL (0.6-1.0) Estimated GFR (Cockcroft-Gault) 21.2 BUN/Creatinine Ratio 24 (6-20) Glucose Level 192mg/dL (70-99) Calcium Level 9.7mg/dL (8.5-10.1) Total Bilirubin 0.3mg/dL (0.2-1.0) Aspartate Amino Transf (AST/SGOT) 63U/L (15-37) Alanine Aminotransferase (ALT/SGPT) 66U/L (14-59) Alkaline Phosphatase 202U/L (46-116) Total Protein 7.8g/dL (6.4-8.2) Albumin 2.5g/dL (3.4-5.0) Albumin/Globulin Ratio 0.5 (1.0-1.7) Test 11/27/16 02:50 11/27/16 08:08 Hemoglobin 8.6g/dL (12.0-15.5) Sodium Level 142mmol/L (136-145) Potassium Level 3.8mmol/L (3.5-5.1) Chloride Level 106mmol/L (98-107) Carbon Dioxide Level 24mmol/L (21-32) Anion Gap 12 (6-14) Blood Urea Nitrogen 57mg/dL (7-20) Creatinine 2.1mg/dL (0.6-1.0) Estimated GFR (Cockcroft-Gault) 22.4 Glucose Level 235mg/dL (70-99) Calcium Level 9.5mg/dL (8.5-10.1) Phosphorus Level 4.2mg/dL (2.6-4.7) Magnesium Level 2.4mg/dL (1.8-2.4) Albumin 2.4g/dL (3.4-5.0) Glucose (Fingerstick) 209mg/dL (70-99) Review of Systems Review of Systems no fever, chills, chest pain Assessment and Plan Assessmemt and Plan Problems Medical Problems: (1) Pneumonia Status: Acute Problems: Comment Review of Relevant I have reviewed the following items missy (where applicable) has been applied. Labs Laboratory Tests Test 11/25/16 13:35 11/25/16 17:28 11/25/16 20:49 11/26/16 07:25 White Blood Count 12.5x10^3/uL (4.0-11.0) 8.7x10^3/uL (4.0-11.0) Red Blood Count 2.71x10^6/uL (3.50-5.40) 2.89x10^6/uL (3.50-5.40) Hemoglobin 8.6g/dL (12.0-15.5) 9.2g/dL (12.0-15.5) Hematocrit 26.3% (36.0-47.0) 28.3% (36.0-47.0) Mean Corpuscular Volume 97fL (79-100) 98fL (79-100) Mean Corpuscular Hemoglobin 32pg (25-35) 32pg (25-35) Mean Corpuscular Hemoglobin Concent 33g/dL (31-37) 33g/dL (31-37) Red Cell Distribution Width 15.8% (11.5-14.5) 15.8% (11.5-14.5) Platelet Count 314x10^3/uL (140-400) 326x10^3/uL (140-400) Neutrophils (%) (Auto) 78% (31-73) 89% (31-73) Lymphocytes (%) (Auto) 7% (24-48) 7% (24-48) Monocytes (%) (Auto) 15% (0-9) 4% (0-9) Eosinophils (%) (Auto) 0% (0-3) 0% (0-3) Basophils (%) (Auto) 0% (0-3) 0% (0-3) Neutrophils # (Auto) 9.8x10^3uL (1.8-7.7) 7.7x10^3uL (1.8-7.7) Lymphocytes # (Auto) 0.8x10^3/uL (1.0-4.8) 0.6x10^3/uL (1.0-4.8) Monocytes # (Auto) 1.8x10^3/uL (0.0-1.1) 0.3x10^3/uL (0.0-1.1) Eosinophils # (Auto) 0.0x10^3/uL (0.0-0.7) 0.0x10^3/uL (0.0-0.7) Basophils # (Auto) 0.0x10^3/uL (0.0-0.2) 0.0x10^3/uL (0.0-0.2) Prothrombin Time 17.8SEC (11.7-14.0) Prothromb Time International Ratio 1.6 (0.8-1.1) Sodium Level 143mmol/L (136-145) 142mmol/L (136-145) Potassium Level 4.5mmol/L (3.5-5.1) 4.4mmol/L (3.5-5.1) Chloride Level 106mmol/L (98-107) 105mmol/L (98-107) Carbon Dioxide Level 27mmol/L (21-32) 24mmol/L (21-32) Anion Gap 10 (6-14) 13 (6-14) Blood Urea Nitrogen 50mg/dL (7-20) 50mg/dL (7-20) Creatinine 2.4mg/dL (0.6-1.0) 2.2mg/dL (0.6-1.0) Estimated GFR (Cockcroft-Gault) 19.2 21.2 Glucose Level 132mg/dL (70-99) 191mg/dL (70-99) Calcium Level 9.2mg/dL (8.5-10.1) 9.6mg/dL (8.5-10.1) XG-Mby-J-Type Natriuretic Peptide 7124pg/mL (0-449) Glucose (Fingerstick) 117mg/dL (70-99) 172mg/dL (70-99) Segmented Neutrophils % 85% (35-66) Band Neutrophils % 8% (0-9) Lymphocytes % 5% (24-48) Monocytes % 2% (0-10) Platelet Estimate Adequate (ADEQUATE) Uric Acid 7.8mg/dL (2.6-6.0) Iron Level 40ug/dL (50-170) Total Iron Binding Capacity 217ug/dL (250-450) Iron Saturation 18% (15-34) Ferritin 473ng/mL (8-252) Creatine Kinase 101U/L (26-192) Vitamin B12 Level 356pg/mL (247-911) Serum Folate 5.10ng/ml (3.2-20.0) Test 11/26/16 07:59 11/26/16 10:05 11/26/16 12:08 11/26/16 14:10 Glucose (Fingerstick) 187mg/dL (70-99) 204mg/dL (70-99) O2 Saturation 96% (92-99) Arterial Blood pH 7.45 (7.35-7.45) Arterial Blood pCO2 at Patient Temp 33mmHg (35-46) Arterial Blood pO2 at Patient Temp 90mmHg (65-108) Arterial Blood HCO3 22mmol/L (21-28) Arterial Blood Base Excess -1mmol/L (-3-3) FiO2 28.0 Sodium Level 141mmol/L (136-145) Potassium Level 4.0mmol/L (3.5-5.1) Chloride Level 103mmol/L (98-107) Carbon Dioxide Level 23mmol/L (21-32) Anion Gap 15 (6-14) Blood Urea Nitrogen 52mg/dL (7-20) Creatinine 2.2mg/dL (0.6-1.0) Estimated GFR (Cockcroft-Gault) 21.2 BUN/Creatinine Ratio 24 (6-20) Glucose Level 192mg/dL (70-99) Calcium Level 9.7mg/dL (8.5-10.1) Total Bilirubin 0.3mg/dL (0.2-1.0) Aspartate Amino Transf (AST/SGOT) 63U/L (15-37) Alanine Aminotransferase (ALT/SGPT) 66U/L (14-59) Alkaline Phosphatase 202U/L (46-116) Total Protein 7.8g/dL (6.4-8.2) Albumin 2.5g/dL (3.4-5.0) Albumin/Globulin Ratio 0.5 (1.0-1.7) Test 11/26/16 17:09 11/26/16 20:23 11/27/16 02:50 11/27/16 08:08 Glucose (Fingerstick) 205mg/dL (70-99) 253mg/dL (70-99) 209mg/dL (70-99) Hemoglobin 8.6g/dL (12.0-15.5) Sodium Level 142mmol/L (136-145) Potassium Level 3.8mmol/L (3.5-5.1) Chloride Level 106mmol/L (98-107) Carbon Dioxide Level 24mmol/L (21-32) Anion Gap 12 (6-14) Blood Urea Nitrogen 57mg/dL (7-20) Creatinine 2.1mg/dL (0.6-1.0) Estimated GFR (Cockcroft-Gault) 22.4 Glucose Level 235mg/dL (70-99) Calcium Level 9.5mg/dL (8.5-10.1) Phosphorus Level 4.2mg/dL (2.6-4.7) Magnesium Level 2.4mg/dL (1.8-2.4) Albumin 2.4g/dL (3.4-5.0) Laboratory Tests Test 11/26/16 12:08 11/26/16 14:10 11/26/16 17:09 11/26/16 20:23 Glucose (Fingerstick) 204mg/dL (70-99) 205mg/dL (70-99) 253mg/dL (70-99) Sodium Level 141mmol/L (136-145) Potassium Level 4.0mmol/L (3.5-5.1) Chloride Level 103mmol/L (98-107) Carbon Dioxide Level 23mmol/L (21-32) Anion Gap 15 (6-14) Blood Urea Nitrogen 52mg/dL (7-20) Creatinine 2.2mg/dL (0.6-1.0) Estimated GFR (Cockcroft-Gault) 21.2 BUN/Creatinine Ratio 24 (6-20) Glucose Level 192mg/dL (70-99) Calcium Level 9.7mg/dL (8.5-10.1) Total Bilirubin 0.3mg/dL (0.2-1.0) Aspartate Amino Transf (AST/SGOT) 63U/L (15-37) Alanine Aminotransferase (ALT/SGPT) 66U/L (14-59) Alkaline Phosphatase 202U/L (46-116) Total Protein 7.8g/dL (6.4-8.2) Albumin 2.5g/dL (3.4-5.0) Albumin/Globulin Ratio 0.5 (1.0-1.7) Test 11/27/16 02:50 11/27/16 08:08 Hemoglobin 8.6g/dL (12.0-15.5) Sodium Level 142mmol/L (136-145) Potassium Level 3.8mmol/L (3.5-5.1) Chloride Level 106mmol/L (98-107) Carbon Dioxide Level 24mmol/L (21-32) Anion Gap 12 (6-14) Blood Urea Nitrogen 57mg/dL (7-20) Creatinine 2.1mg/dL (0.6-1.0) Estimated GFR (Cockcroft-Gault) 22.4 Glucose Level 235mg/dL (70-99) Calcium Level 9.5mg/dL (8.5-10.1) Phosphorus Level 4.2mg/dL (2.6-4.7) Magnesium Level 2.4mg/dL (1.8-2.4) Albumin 2.4g/dL (3.4-5.0) Glucose (Fingerstick) 209mg/dL (70-99) Microbiology 11/25/16 Blood Culture - Preliminary, Resulted NO GROWTH AFTER 1 DAY Medications Current Medications Ondansetron HCl (Zofran) 4 mg PRN Q6HRS PRN IV NAUSEA/VOMITING; Start 11/25/16 at 12:30 Morphine Sulfate 1 mg PRN Q1HR PRN IV PAIN; Start 11/25/16 at 12:30 Acetaminophen/ Hydrocodone Bitart (Lortab 5/325) 1 tab PRN Q4HRS PRN PO MILD PAIN, 2ND CHOICE Last administered on 11/27/16 08:45; Start 11/25/16 at 12:30 Acetaminophen (Tylenol) 650 mg PRN Q6HRS PRN PO Headaches, Temp > 101.5F; Start 11/25/16 at 12:30 Heparin Sodium (Porcine) 5000 unit 5,000 unit Q8HRS SQ Last administered on 11/27 06:07; Start 11/25/16 at 14:00; Stop 11/27/16 at 11:00; Status DC Piperacillin Sod/ Tazobactam Sod/ Sodium Chloride (Zosyn/Iv Sodium Chloride 0.9 % 50ml) 50 ml @ 100 mls/hr Q6HRS IV ; Start 11/25/16 at 18:00; Status UNV Piperacillin Sod/ Tazobactam Sod (Zosyn Per Pharmacy) 1 each PRN DAILY PRN MC SEE COMMENTS; Start 11/25/16 at 12:30 Vancomycin HCl 1 each 1 each PRN DAILY PRN MC SEE COMMENTS Last administered on 11/26/16 14:28; Start 11/25/16 at 12:30 Vancomycin HCl 1.75 gm/Sodium Chloride 500 ml @ 250 mls/hr 1X ONCE IV ; Start 11/25/16 at 12:30; Stop 11/25/16 at 14:29; Status UNV Vancomycin HCl/ Sodium Chloride (Iv Sodium Chloride 0.9% 500ml Bag) 500 ml @ 250 mls/hr 1X ONCE IV Last administered on 11/25/16 14:18; Start 11/25/16 at 14 :00; Stop 11/25/16 at 15:59; Status DC Albuterol/ Ipratropium (Duoneb) 3 ml RTQID NEB Last administered on 11/26/16 07 :45; Start 11/25/16 at 16:00; Stop 11/26/16 at 09:29; Status DC Albuterol Sulfate (Ventolin Neb Soln) 2.5 mg PRN Q4HRS PRN NEB SHORTNESS OF BREATH; Start 11/25/16 at 14:00 Insulin Aspart (Novolog) 0-9 UNITS TIDWMEALS SQ Last administered on 11/27/16 08:56; Start 11/25/16 at 17:00 Dextrose (Dextrose 50%-Water Syringe) 12.5 gm PRN Q15MIN PRN IV SEE COMMENTS; Start 11/25/16 at 14:00 Hydralazine HCl 10 mg 10 mg PRN Q4HRS PRN IVP ELEVATED BP, SEE COMMENTS; Start 11/25/16 at 14:00 Piperacillin Sod/ Tazobactam Sod 2.25 gm/Sodium Chloride 50 ml @ 100 mls/hr Q8HRS IV Last administered on 11/27/16 05:55; Start 11/25/16 at 15:00 Vancomycin HCl/ Sodium Chloride (Iv Sodium Chloride 0.9% 250ml) 250 ml @ 166.667 mls/hr Q24H IV Last administered on 11/26/16 15:13; Start 11/26/16 at 14 :00 Vancomycin HCl 1 each 1X ONCE MC ; Start 11/27/16 at 13:30; Stop 11/27/16 at 13: 31 Methylprednisolone Sodium Succinate (Solu-Medrol 40mg Vial) 40 mg Q8HRS IV Last administered on 11/26/16 05:51; Start 11/25/16 at 17:00; Stop 11/26/16 at 09: 27; Status DC Methylprednisolone Sodium Succinate (Solu-Medrol 125mg Vial) 60 mg Q8HRS IV Last administered on 11/27/16 05:56; Start 11/26/16 at 14:00 Albuterol/ Ipratropium 3 ml 3 ml Q4HRS NEB Last administered on 11/27/16 07:39 ; Start 11/26/16 at 12:00 Magnesium Sulfate/ Dextrose (Magnesium Sulfate PREMIX 2GM) 50 ml @ 25 mls/hr PRN DAILY PRN IV for Mag < 1.7 on am labs; Start 11/26/16 at 13:15 Docusate Sodium (Colace) 100 mg DAILY PO Last administered on 11/27/16 08:45; Start 11/26/16 at 14:00 Glipizide (Glucotrol) 5 mg DAILY PO Last administered on 11/27/16 08:45; Start 11/26/16 at 14:00 Nystatin (Nystop) 1 sapna BID TP Last administered on 11/27/16 08:45; Start at 14:00 Gabapentin 300 mg 300 mg TID PO Last administered on 11/27/16 08:44; Start 11/26 at 14:00 Iron Sucrose/ Sodium Chloride (Venofer/Iv Sodium Chloride 0.9% 100ml) 110 ml @ 55 mls/hr 3X/WEEK IV Last administered on 11/26/16 17:12; Start 11/26/16 at 15: 00; Stop 12/05/16 at 10:59 Barium Sulfate (Varibar Thin Liquid Apple) 148 gm 1X ONCE PO ; Start 11/27/16 at 10:00; Stop 11/27/16 at 10:01; Status DC Darbepoetin Hang (Aranesp) 60 mcg [id number] SQ ; Start 11/27/16 at 21:00 Active Scripts Active Reported Nystatin 15 Gm Powder 1 Sapna TP BID Lisinopril 20 Mg Tablet 20 Mg PO DAILY Glucotrol (Glipizide) 5 Mg Tablet 5 Mg PO DAILY Gabapentin 300 Mg Capsule 300 Mg PO TID Furosemide 40 Mg Tablet 40 Mg IVP DAILY Docusate Sodium 100 Mg Capsule 100 Mg PO DAILY Vitals/I & O Vital Sign - Last 24 Hours 11/26/16 11/26/16 11/26/16 11/26/16 15:00 17:05 19:28 19:51 Temp 97.9 97.5 97.9 97.5 Pulse 87 84 Resp 20 22 B/P 162/61 151/61 Pulse Ox 95 95 94 O2 Delivery Nasal Cannula Nasal Cannula Nasal Cannula Nasal Cannula O2 Flow Rate 2.0 2.0 2.0 2.0 11/26/16 11/26/16 11/26/16 11/26/16 20:00 21:34 22:34 23:10 Temp 97.7 97.7 Pulse 75 Resp 20 B/P 113/56 Pulse Ox 93 O2 Delivery Nasal Cannula Nasal Cannula Nasal Cannula Nasal Cannula O2 Flow Rate 2.0 2.0 2.0 2.0 11/27/16 11/27/16 11/27/16 11/27/16 00:02 03:30 04:09 07:00 Temp 97.5 98.2 97.5 98.2 Pulse 80 80 Resp 18 20 B/P 150/72 147/69 Pulse Ox 95 96 95 97 O2 Delivery Nasal Cannula Nasal Cannula Nasal Cannula Nasal Cannula O2 Flow Rate 2.0 2.0 2.0 2.0 11/27/16 11/27/16 11/27/16 07:41 08:15 08:45 Pulse Ox 95 O2 Delivery Nasal Cannula Nasal Cannula Nasal Cannula O2 Flow Rate 2.0 2.0 2.0 Intake and Output 11/26/16 11/26/16 11/27/16 15:00 23:00 07:00 Intake Total 450 ml 130 ml Output Total 370 ml Balance 450 ml -240 ml ADDISON SPANN MD Nov 27, 2016 11:46
--- NOTE | 2016-11-27 12:25 | RAD ---
Videofluoroscopic swallowing examination History: Dysphagia, episodes of coughing with food and liquids. Technique: Examination performed in conjunction with speech service. Solid and semisolid food substances were administered to the patient as well as liquids of various consistencies. Findings: The patient demonstrated one episode of aspiration with thin consistency liquids which elicited a vigorous cough reflex. The patient demonstrated multiple additional episodes of deep laryngeal penetration with thin consistency liquids, but no definite aspiration. With nectar consistency, majority of the trials demonstrated shallow laryngeal penetration without aspiration, although one trial was tolerated without laryngeal penetration. With honey consistency, the patient demonstrated one episode of shallow laryngeal penetration without tracheal aspiration. Solid food was tolerated well. It was noted that the episodes of laryngeal penetration appeared to be related to a coordination with breathing. If patient controlled breathing and swallowed in between inspiration, then penetration was less likely. Fluoroscopic time was 4.0 minutes. 20 fluoroscopic series were sent to the PACS system. Impression: 1. Patient demonstrated an episode of laryngeal penetration and tracheal aspiration with thin consistency liquids. Additional thin trials also demonstrated laryngeal penetration without convincing aspiration. 2. The patient demonstrated a less frequent episodes of laryngeal penetration with nectar consistency and only one episode with honey consistency. 3. The episodes of the penetration appeared to be related to phase of breathing. The patient control breathing and swallowed in between inspiration, then penetration was much less likely. Please see speech service report for more information.
[2016-11-27] MEDS: GUAIFENESIN ER 600 MG TABLET.ER PO SCH ×2 (12:40→21:47)
--- NOTE | 2016-11-27 13:14 | PDOC ---
CARDIO Progress Notes Date and Time Date of Service 11/27/2016 Time of Evaluation 1215 Subjective Subjective: No Chest Pain, No shortness of breath, No Palpitations, No Dizziness, Other (cough) Vitals Vitals Vital Signs Date Time Temp Pulse Resp B/P Pulse Ox O2 Delivery O2 Flow Rate FiO2 11/27/16 11:00 98.2 91 24 154/63 96 Nasal Cannula 2.0 98.2 Weight Weight [ ] Input and Output Intake and Output Intake and Output 11/27/16 07:00 Intake Total 580 ml Output Total 370 ml Balance 210 ml Intake Oral 500 ml IV Total 50 ml Blood Product IV Normal Saline Flush 30 ml Output Urine Total 370 ml Laboratory Labs Laboratory Tests Test 11/26/16 14:10 11/26/16 17:09 11/26/16 20:23 11/27/16 02:50 Sodium Level 141mmol/L (136-145) 142mmol/L (136-145) Potassium Level 4.0mmol/L (3.5-5.1) 3.8mmol/L (3.5-5.1) Chloride Level 103mmol/L (98-107) 106mmol/L (98-107) Carbon Dioxide Level 23mmol/L (21-32) 24mmol/L (21-32) Anion Gap 15 (6-14) 12 (6-14) Blood Urea Nitrogen 52mg/dL (7-20) 57mg/dL (7-20) Creatinine 2.2mg/dL (0.6-1.0) 2.1mg/dL (0.6-1.0) Estimated GFR (Cockcroft-Gault) 21.2 22.4 BUN/Creatinine Ratio 24 (6-20) Glucose Level 192mg/dL (70-99) 235mg/dL (70-99) Calcium Level 9.7mg/dL (8.5-10.1) 9.5mg/dL (8.5-10.1) Total Bilirubin 0.3mg/dL (0.2-1.0) Aspartate Amino Transf (AST/SGOT) 63U/L (15-37) Alanine Aminotransferase (ALT/SGPT) 66U/L (14-59) Alkaline Phosphatase 202U/L (46-116) Total Protein 7.8g/dL (6.4-8.2) Albumin 2.5g/dL (3.4-5.0) 2.4g/dL (3.4-5.0) Albumin/Globulin Ratio 0.5 (1.0-1.7) Glucose (Fingerstick) 205mg/dL (70-99) 253mg/dL (70-99) Hemoglobin 8.6g/dL (12.0-15.5) Phosphorus Level 4.2mg/dL (2.6-4.7) Magnesium Level 2.4mg/dL (1.8-2.4) Test 11/27/16 08:08 11/27/16 12:06 Glucose (Fingerstick) 209mg/dL (70-99) 288mg/dL (70-99) Microbiology Micro Microbiology 11/25/16 Blood Culture - Preliminary, Resulted NO GROWTH AFTER 1 DAY Physical Exam HEENT: Neck Supple W Full Motion Chest: Symmetric LUNGS: Other (exp wheezing posteriorly; no crackles) Heart: S1S2, RRR Abdomen: Soft N/T (truncal obesity) Extremities: Other (edema decreased at ankle level then 3-4+ starting mid-calf and up; similar edema in UE) Neurology: alert, oriented Diagnostic Tests Echocardiogram: Other (LVEF 40-45%; moderate pulm HTN with PA of 49; mild global hypokinesis and abnormal septal wall motion; mild TR) Assessment Assessment 1. acute/chronic systolic and diastolic CHF LVEF depressed @ 40-45% with mild global hypokinesis and abnormal septal wall motion no beta-blockers due to persistent wheezing; no ACEI due to renal function diuresis per nephrology as Cr continues to trend downward 2. cardiomyopathy depressed LVEF with WMA on echo (see #1) not currently a candidate for cardiac cath for further evaluation consider MPI as outpatient 3. acute/chronic respiratory failure COPD history with pneumonia per PULM 4. acute/chronic renal insufficiency Cr trending downward per nephrology 5. PSVT brief in duration continue to monitor would not start BB for rate control with wheezing and would avoid CCB due to her already significant LE edema 6. HTN needs better control of BP will add scheduled hydralazine ELI BENITEZ APRN Nov 27, 2016 13:14
[2016-11-27] MEDS: VANCOMYCIN 1.25 GM in IV NORMAL SALINE 250ML 250 ML IV SCH (14:00)
[2016-11-27] MEDS: VANCOMYCIN PER PHARMACY MC PRN (14:43)
[2016-11-27 15:00] VITALS: BP 103/73
[2016-11-27] MEDS: HYDRALAZINE 10 MG TABLET PO SCH ×2 (15:04→21:48)
[2016-11-27 16:22] LABS: HEP A IGM ABDY Negative (Negative); HEP B SURFACE ABDY Non Reactive (.); PTH INTACT 169 pg/mL (15-65)
[2016-11-27 19:59] VITALS: BP 140/67
[2016-11-27] MEDS ORDERED: DARBEPOETIN ALFA 60 MCG/0.3 ML DISP.SYRIN. SQ SCH (21:00)
[2016-11-27] MEDS: INSULIN DETEMIR 300 UNITS/3 ML INSULN.PEN. SQ SCH (22:01)
[2016-11-27 23:19] VITALS: BP 144/71
[2016-11-28] MEDS: IPRATRPIUM/ALBUTEROL 0.5/2.5MG 3 ML NEBU. NEB SCH ×7 (00:15→23:40)
[2016-11-28 03:53] VITALS: BP 146/77
[2016-11-28 05:05] LABS: ALBUMIN 2.5 g/dL (3.4-5.0); CALCIUM 9.5 mg/dL (8.5-10.1); GFR 23.7; PHOSPHORUS 3.9 mg/dL (2.6-4.7); POTASSIUM 3.9 mmol/L (3.5-5.1)
[2016-11-28] MEDS: BUDESONIDE 0.5 MG/2 ML NEBU. NEB SCH ×2 (06:10→21:06)
[2016-11-28] MEDS: methylPREDNISolone SOD SUCC PF 125 MG/2 ML VIAL. IV SCH ×2 (06:31→21:29)
[2016-11-28] MEDS: PIPERACILLIN/TAZOBACTAM 2.25 GM in IV NORMAL SALINE 50ML 50 ML IV SCH ×3 (06:31→21:28)
[2016-11-28] MEDS: HYDRALAZINE 10 MG TABLET PO SCH ×3 (06:34→21:39)
[2016-11-28 07:00] VITALS: BP 120/50
--- NOTE | 2016-11-28 08:31 | RAD ---
Exam: AP portable chest. History: Pneumonia, shortness of air. Comparison: 11/25/2016. Findings: Cardiac silhouette appears within normal limits for size. Aortic atherosclerosis seen. No pneumothorax is seen. There is mild improvement in consolidation involving the right mid lung zone. There is persistent consolidation involving the right lower lung zone. Impression: 1. Mild improvement in right pneumonia.
[2016-11-28] MEDS: DOCUSATE SODIUM 100 MG CAPSULE. PO SCH (08:35)
[2016-11-28] MEDS: GUAIFENESIN ER 600 MG TABLET.ER PO SCH ×2 (08:35→21:28)
[2016-11-28] MEDS: GLIPIZIDE 5 MG TABLET. PO SCH (08:36)
[2016-11-28] MEDS: IRON SUCROSE COMPLEX 200 MG in IV NORMAL SALINE 100ML 100 ML IV SCH (08:36)
[2016-11-28] MEDS: NYSTATIN TOPICAL POWDER 15GM BOTTLE. TP SCH ×2 (08:36→21:29)
[2016-11-28] MEDS: GABAPENTIN 300 MG CAPSULE. PO SCH ×3 (08:36→21:28)
[2016-11-28] MEDS: INSULIN ASPART 300 UNITS/3 ML INSULN.PEN SQ SCH ×3 (08:55→17:08)
--- NOTE | 2016-11-28 10:01 | PDOC ---
PULMONARY PROGRESS NOTES Subjective Pt feels better Vitals Vital Signs Date Time Temp Pulse Resp B/P Pulse Ox O2 Delivery O2 Flow Rate FiO2 11/28/16 08:00 Nasal Cannula 2.0 11/28/16 07:00 97.5 84 20 120/50 94 97.5 General: Alert Lungs: Wheezing (resolved) Cardiovascular: S1 Abdomen: Soft Neuro Exam: Alert Extremities: No Edema Skin: Warm Labs Laboratory Tests Test 11/26/16 10:05 11/26/16 12:08 11/26/16 14:10 11/26/16 17:09 O2 Saturation 96% (92-99) Arterial Blood pH 7.45 (7.35-7.45) Arterial Blood pCO2 at Patient Temp 33mmHg (35-46) Arterial Blood pO2 at Patient Temp 90mmHg (65-108) Arterial Blood HCO3 22mmol/L (21-28) Arterial Blood Base Excess -1mmol/L (-3-3) FiO2 28.0 Glucose (Fingerstick) 204mg/dL (70-99) 205mg/dL (70-99) Sodium Level 141mmol/L (136-145) Potassium Level 4.0mmol/L (3.5-5.1) Chloride Level 103mmol/L (98-107) Carbon Dioxide Level 23mmol/L (21-32) Anion Gap 15 (6-14) Blood Urea Nitrogen 52mg/dL (7-20) Creatinine 2.2mg/dL (0.6-1.0) Estimated GFR (Non- 22 (>59) Estimated GFR (Cockcroft-Gault) 21.2 BUN/Creatinine Ratio 24 (6-20) Glucose Level 192mg/dL (70-99) Calcium Level 9.7mg/dL (8.5-10.1) Total Bilirubin 0.3mg/dL (0.2-1.0) Aspartate Amino Transf (AST/SGOT) 63U/L (15-37) Alanine Aminotransferase (ALT/SGPT) 66U/L (14-59) Alkaline Phosphatase 202U/L (46-116) Total Protein 7.8g/dL (6.4-8.2) Albumin 2.5g/dL (3.4-5.0) Albumin/Globulin Ratio 0.5 (1.0-1.7) EGFR 26 (>59) PTH (Intact) Specimen Description Comment (.) Parathyroid Hormone (Intact) 169pg/mL (15-65) Calcium (PTH Intact) 9.5mg/dL (8.7-10.3) Creatinine (PTH Intact) 2.00mg/dL (0.57-1.00) Phosphorus (PTH Intact) 4.0mg/dL (2.5-4.5) Hepatitis A IgM Antibody Negative (Negative) Hepatitis B Surface Antigen Negative (Negative) Hepatitis B Surface Antibody Non reactive (.) Hepatitis B Core Total Antibody Negative (Negative) Hepatitis B Core IgM Antibody Negative (Negative) Hepatitis C Antibody <0.1s/co ratio (0.0-0.9) Test 11/26/16 20:23 11/26/16 21:30 11/27/16 02:50 11/27/16 08:08 Glucose (Fingerstick) 253mg/dL (70-99) 209mg/dL (70-99) Urine Random Sodium 24mmol/L (Not Estab.) Hemoglobin 8.6g/dL (12.0-15.5) Sodium Level 142mmol/L (136-145) Potassium Level 3.8mmol/L (3.5-5.1) Chloride Level 106mmol/L (98-107) Carbon Dioxide Level 24mmol/L (21-32) Anion Gap 12 (6-14) Blood Urea Nitrogen 57mg/dL (7-20) Creatinine 2.1mg/dL (0.6-1.0) Estimated GFR (Cockcroft-Gault) 22.4 Glucose Level 235mg/dL (70-99) Calcium Level 9.5mg/dL (8.5-10.1) Phosphorus Level 4.2mg/dL (2.6-4.7) Magnesium Level 2.4mg/dL (1.8-2.4) Albumin 2.4g/dL (3.4-5.0) Test 11/27/16 12:06 11/27/16 13:30 11/27/16 17:12 11/27/16 20:20 Glucose (Fingerstick) 288mg/dL (70-99) 213mg/dL (70-99) 274mg/dL (70-99) Erythrocyte Sedimentation Rate 133 (0-25) Procalcitonin 0.31ng/mL (0.00-0.10) Vancomycin Level Trough 29.9mcg/mL (10.0-20.0) Vancomycin Last Dose Date 11/26/16 Vancomycin Last Dose Time 1400 Test 11/28/16 04:00 11/28/16 07:41 Sodium Level 143mmol/L (136-145) Potassium Level 3.9mmol/L (3.5-5.1) Chloride Level 107mmol/L (98-107) Carbon Dioxide Level 25mmol/L (21-32) Anion Gap 11 (6-14) Blood Urea Nitrogen 63mg/dL (7-20) Creatinine 2.0mg/dL (0.6-1.0) Estimated GFR (Cockcroft-Gault) 23.7 Glucose Level 222mg/dL (70-99) Calcium Level 9.5mg/dL (8.5-10.1) Phosphorus Level 3.9mg/dL (2.6-4.7) Magnesium Level 2.6mg/dL (1.8-2.4) Albumin 2.5g/dL (3.4-5.0) Glucose (Fingerstick) 201mg/dL (70-99) Laboratory Tests Test 11/27/16 12:06 11/27/16 13:30 11/27/16 17:12 11/27/16 20:20 Glucose (Fingerstick) 288mg/dL (70-99) 213mg/dL (70-99) 274mg/dL (70-99) Erythrocyte Sedimentation Rate 133 (0-25) Procalcitonin 0.31ng/mL (0.00-0.10) Vancomycin Level Trough 29.9mcg/mL (10.0-20.0) Vancomycin Last Dose Date 11/26/16 Vancomycin Last Dose Time 1400 Test 11/28/16 04:00 11/28/16 07:41 Sodium Level 143mmol/L (136-145) Potassium Level 3.9mmol/L (3.5-5.1) Chloride Level 107mmol/L (98-107) Carbon Dioxide Level 25mmol/L (21-32) Anion Gap 11 (6-14) Blood Urea Nitrogen 63mg/dL (7-20) Creatinine 2.0mg/dL (0.6-1.0) Estimated GFR (Cockcroft-Gault) 23.7 Glucose Level 222mg/dL (70-99) Calcium Level 9.5mg/dL (8.5-10.1) Phosphorus Level 3.9mg/dL (2.6-4.7) Magnesium Level 2.6mg/dL (1.8-2.4) Albumin 2.5g/dL (3.4-5.0) Glucose (Fingerstick) 201mg/dL (70-99) Medications Active Scripts Medications Dose Route/Sig Days Date Category Nystatin 15 Gm Powder 1 Sapna TP BID 11/25/16 Reported Lisinopril 20 Mg Tablet 20 Mg PO DAILY 11/25/16 Reported Glucotrol (Glipizide) 5 Mg Tablet 5 Mg PO DAILY 11/25/16 Reported Gabapentin 300 Mg Capsule 300 Mg PO TID 11/25/16 Reported Furosemide 40 Mg Tablet 40 Mg IVP DAILY 11/25/16 Reported Docusate Sodium 100 Mg Capsule 100 Mg PO DAILY 11/25/16 Reported Impression . 1. Dyspnea / Acute hypoxic Respiratory failure secondary to multifactorial etiologies including acute exacerbation of chronic obstructive pulmonary disease along with pneumonia involving the right lung. 2. Abnormal CT chest with extensive pneumonia in the right lung. We will cover for gram-negative and gram-positive organisms for healthcare-associated pneumonia. 3. Underlying chronic obstructive pulmonary disease with exacerbation. 4. Acute kidney injury. 5. Small to moderate right pleural effusion. We will monitor for now. Plan . 1. clinically improved with BIPAP. We will continue with broad-spectrum antibiotics. 2. Continue with DuoNebs. 3. Solu-Medrol with taper 4. Follow sputum and blood cultures. 5. Follow chest x-rays today with improving infiltrates. De -escalate antibiotics CARITO SUBRAMANIAN MD Nov 28, 2016 10:01
[2016-11-28 11:00] VITALS: BP 143/62
--- NOTE | 2016-11-28 11:08 | PDOC ---
PROGRESS NOTES Chief Complaint Chief Complaint pna 1. acute resp failure with HAP 2. recent bl leg cellulitis 3. h/o systolic CHF EF 40% 4. h/o CAD 5. ROB on CKD3, ATN 6. dm2 7. COPD 8. h/o stroke 9. morbid obesity 10. HTN 11.sepsis with 1 12. moderate PHTN 13. urinary retention 14. hematuria with anthony plan: 1. card, pulm, renal consulted 2. CXR, CT , renal US done 3. labs am 4. ssi, duoneb. solumedrol decrease to bid 5. cont home meds, hold lasix and lisinopril for now 6. blcx, sputum cx. add vanco and zosyn 7. dvt ppx ptot CT chest showed possible renal mass, may need CT, but with ROB , CT wo contrast is not ideal for now. renal aware. Swallow eval done, on dysphagia 2 diet add levemir since on high dose solumedrol, SSI. get URo consult, ms heparin for now History of Present Illness History of Present Illness choked 11/26 then cough a lot, better on 11/28 on NC 2-3L on anthony 11/26, hematuria, oliguria, US showed distended bladder. hematuria gone CXR better Vitals Vitals Vital Signs Date Time Temp Pulse Resp B/P Pulse Ox O2 Delivery O2 Flow Rate FiO2 11/28/16 11:00 97.5 86 20 143/62 97 Nasal Cannula 2.0 97.5 Physical Exam General: Alert, Oriented X3, Cooperative Heart: Regular rate, Normal S1 (mild ) Lungs: Crackles (bl mild crackles) Abdomen: Normal bowel sounds, Soft Extremities: No clubbing, No cyanosis Labs LABS Laboratory Tests Test 11/27/16 12:06 11/27/16 13:30 11/27/16 17:12 11/27/16 20:20 Glucose (Fingerstick) 288mg/dL (70-99) 213mg/dL (70-99) 274mg/dL (70-99) Erythrocyte Sedimentation Rate 133 (0-25) Procalcitonin 0.31ng/mL (0.00-0.10) Vancomycin Level Trough 29.9mcg/mL (10.0-20.0) Vancomycin Last Dose Date 11/26/16 Vancomycin Last Dose Time 1400 Test 4/7/17 04:00 11/28/16 07:41 Sodium Level 143mmol/L (136-145) Potassium Level 3.9mmol/L (3.5-5.1) Chloride Level 107mmol/L (98-107) Carbon Dioxide Level 25mmol/L (21-32) Anion Gap 11 (6-14) Blood Urea Nitrogen 63mg/dL (7-20) Creatinine 2.0mg/dL (0.6-1.0) Estimated GFR (Cockcroft-Gault) 23.7 Glucose Level 222mg/dL (70-99) Calcium Level 9.5mg/dL (8.5-10.1) Phosphorus Level 3.9mg/dL (2.6-4.7) Magnesium Level 2.6mg/dL (1.8-2.4) Albumin 2.5g/dL (3.4-5.0) Glucose (Fingerstick) 201mg/dL (70-99) Review of Systems Review of Systems No fever, chills, chest pain Assessment and Plan Assessmemt and Plan Problems Medical Problems: (1) Pneumonia Status: Acute Problems: Comment Review of Relevant I have reviewed the following items missy (where applicable) has been applied. Labs Laboratory Tests Test 11/26/16 12:08 11/26/16 14:10 11/26/16 17:09 11/26/16 20:23 Glucose (Fingerstick) 204mg/dL (70-99) 205mg/dL (70-99) 253mg/dL (70-99) Sodium Level 141mmol/L (136-145) Potassium Level 4.0mmol/L (3.5-5.1) Chloride Level 103mmol/L (98-107) Carbon Dioxide Level 23mmol/L (21-32) Anion Gap 15 (6-14) Blood Urea Nitrogen 52mg/dL (7-20) Creatinine 2.2mg/dL (0.6-1.0) Estimated GFR (Non- 22 (>59) Estimated GFR (Cockcroft-Gault) 21.2 BUN/Creatinine Ratio 24 (6-20) Glucose Level 192mg/dL (70-99) Calcium Level 9.7mg/dL (8.5-10.1) Total Bilirubin 0.3mg/dL (0.2-1.0) Aspartate Amino Transf (AST/SGOT) 63U/L (15-37) Alanine Aminotransferase (ALT/SGPT) 66U/L (14-59) Alkaline Phosphatase 202U/L (46-116) Total Protein 7.8g/dL (6.4-8.2) Albumin 2.5g/dL (3.4-5.0) Albumin/Globulin Ratio 0.5 (1.0-1.7) EGFR 26 (>59) PTH (Intact) Specimen Description Comment (.) Parathyroid Hormone (Intact) 169pg/mL (15-65) Calcium (PTH Intact) 9.5mg/dL (8.7-10.3) Creatinine (PTH Intact) 2.00mg/dL (0.57-1.00) Phosphorus (PTH Intact) 4.0mg/dL (2.5-4.5) Hepatitis A IgM Antibody Negative (Negative) Hepatitis B Surface Antigen Negative (Negative) Hepatitis B Surface Antibody Non reactive (.) Hepatitis B Core Total Antibody Negative (Negative) Hepatitis B Core IgM Antibody Negative (Negative) Hepatitis C Antibody <0.1s/co ratio (0.0-0.9) Test 11/26/16 21:30 11/27/16 02:50 11/27/16 08:08 11/27/16 12:06 Urine Random Sodium 24mmol/L (Not Estab.) Hemoglobin 8.6g/dL (12.0-15.5) Sodium Level 142mmol/L (136-145) Potassium Level 3.8mmol/L (3.5-5.1) Chloride Level 106mmol/L (98-107) Carbon Dioxide Level 24mmol/L (21-32) Anion Gap 12 (6-14) Blood Urea Nitrogen 57mg/dL (7-20) Creatinine 2.1mg/dL (0.6-1.0) Estimated GFR (Cockcroft-Gault) 22.4 Glucose Level 235mg/dL (70-99) Calcium Level 9.5mg/dL (8.5-10.1) Phosphorus Level 4.2mg/dL (2.6-4.7) Magnesium Level 2.4mg/dL (1.8-2.4) Albumin 2.4g/dL (3.4-5.0) Glucose (Fingerstick) 209mg/dL (70-99) 288mg/dL (70-99) Test 11/27/16 13:30 11/27/16 17:12 11/27/16 20:20 11/28/16 04:00 Erythrocyte Sedimentation Rate 133 (0-25) Procalcitonin 0.31ng/mL (0.00-0.10) Vancomycin Level Trough 29.9mcg/mL (10.0-20.0) Vancomycin Last Dose Date 11/26/16 Vancomycin Last Dose Time 1400 Glucose (Fingerstick) 213mg/dL (70-99) 274mg/dL (70-99) Sodium Level 143mmol/L (136-145) Potassium Level 3.9mmol/L (3.5-5.1) Chloride Level 107mmol/L (98-107) Carbon Dioxide Level 25mmol/L (21-32) Anion Gap 11 (6-14) Blood Urea Nitrogen 63mg/dL (7-20) Creatinine 2.0mg/dL (0.6-1.0) Estimated GFR (Cockcroft-Gault) 23.7 Glucose Level 222mg/dL (70-99) Calcium Level 9.5mg/dL (8.5-10.1) Phosphorus Level 3.9mg/dL (2.6-4.7) Magnesium Level 2.6mg/dL (1.8-2.4) Albumin 2.5g/dL (3.4-5.0) Test 11/28/16 07:41 Glucose (Fingerstick) 201mg/dL (70-99) Laboratory Tests Test 11/27/16 12:06 11/27/16 13:30 11/27/16 17:12 11/27/16 20:20 Glucose (Fingerstick) 288mg/dL (70-99) 213mg/dL (70-99) 274mg/dL (70-99) Erythrocyte Sedimentation Rate 133 (0-25) Procalcitonin 0.31ng/mL (0.00-0.10) Vancomycin Level Trough 29.9mcg/mL (10.0-20.0) Vancomycin Last Dose Date 11/26/16 Vancomycin Last Dose Time 1400 Test 11/28/16 04:00 11/28/16 07:41 Sodium Level 143mmol/L (136-145) Potassium Level 3.9mmol/L (3.5-5.1) Chloride Level 107mmol/L (98-107) Carbon Dioxide Level 25mmol/L (21-32) Anion Gap 11 (6-14) Blood Urea Nitrogen 63mg/dL (7-20) Creatinine 2.0mg/dL (0.6-1.0) Estimated GFR (Cockcroft-Gault) 23.7 Glucose Level 222mg/dL (70-99) Calcium Level 9.5mg/dL (8.5-10.1) Phosphorus Level 3.9mg/dL (2.6-4.7) Magnesium Level 2.6mg/dL (1.8-2.4) Albumin 2.5g/dL (3.4-5.0) Glucose (Fingerstick) 201mg/dL (70-99) Microbiology 11/25/16 Blood Culture - Preliminary, Resulted NO GROWTH AFTER 2 DAYS Medications Current Medications Ondansetron HCl (Zofran) 4 mg PRN Q6HRS PRN IV NAUSEA/VOMITING; Start 11/25/16 at 12:30 Morphine Sulfate 1 mg PRN Q1HR PRN IV PAIN; Start 11/25/16 at 12:30 Acetaminophen/ Hydrocodone Bitart (Lortab 5/325) 1 tab PRN Q4HRS PRN PO MILD PAIN, 2ND CHOICE Last administered on 11/27/16 15:05; Start 11/25/16 at 12:30 Acetaminophen (Tylenol) 650 mg PRN Q6HRS PRN PO Headaches, Temp > 101.5F; Start 11/25/16 at 12:30 Heparin Sodium (Porcine) 5000 unit 5,000 unit Q8HRS SQ Last administered on 11/27 06:07; Start 11/25/16 at 14:00; Stop 11/27/16 at 11:00; Status DC Piperacillin Sod/ Tazobactam Sod/ Sodium Chloride (Zosyn/Iv Sodium Chloride 0.9 % 50ml) 50 ml @ 100 mls/hr Q6HRS IV ; Start 11/25/16 at 18:00; Status UNV Piperacillin Sod/ Tazobactam Sod (Zosyn Per Pharmacy) 1 each PRN DAILY PRN MC SEE COMMENTS; Start 11/25/16 at 12:30 Vancomycin HCl 1 each 1 each PRN DAILY PRN MC SEE COMMENTS Last administered on 11/27/16 14:43; Start 11/25/16 at 12:30 Vancomycin HCl 1.75 gm/Sodium Chloride 500 ml @ 250 mls/hr 1X ONCE IV ; Start 11/25/16 at 12:30; Stop 11/25/16 at 14:29; Status UNV Vancomycin HCl/ Sodium Chloride (Iv Sodium Chloride 0.9% 500ml Bag) 500 ml @ 250 mls/hr 1X ONCE IV Last administered on 11/25/16 14:18; Start 11/25/16 at 14 :00; Stop 11/25/16 at 15:59; Status DC Albuterol/ Ipratropium (Duoneb) 3 ml RTQID NEB Last administered on 11/26/16 07 :45; Start 11/25/16 at 16:00; Stop 11/26/16 at 09:29; Status DC Albuterol Sulfate (Ventolin Neb Soln) 2.5 mg PRN Q4HRS PRN NEB SHORTNESS OF BREATH; Start 11/25/16 at 14:00 Insulin Aspart (Novolog) 0-9 UNITS TIDWMEALS SQ Last administered on 11/28/16 08:55; Start 11/25/16 at 17:00 Dextrose (Dextrose 50%-Water Syringe) 12.5 gm PRN Q15MIN PRN IV SEE COMMENTS; Start 11/25/16 at 14:00 Hydralazine HCl 10 mg 10 mg PRN Q4HRS PRN IVP ELEVATED BP, SEE COMMENTS; Start 11/25/16 at 14:00 Piperacillin Sod/ Tazobactam Sod 2.25 gm/Sodium Chloride 50 ml @ 100 mls/hr Q8HRS IV Last administered on 11/28/16 06:31; Start 11/25/16 at 15:00 Vancomycin HCl/ Sodium Chloride (Iv Sodium Chloride 0.9% 250ml) 250 ml @ 166.667 mls/hr Q24H IV Last administered on 11/26/16 15:13; Start 11/26/16 at 14 :00; Stop 11/27/16 at 14:37; Status DC Vancomycin HCl 1 each 1X ONCE MC Last administered on 11/27/16 13:30; Start at 13:30; Stop 11/27/16 at 13:31; Status DC Methylprednisolone Sodium Succinate (Solu-Medrol 40mg Vial) 40 mg Q8HRS IV Last administered on 11/26/16 05:51; Start 11/25/16 at 17:00; Stop 11/26/16 at 09: 27; Status DC Methylprednisolone Sodium Succinate (Solu-Medrol 125mg Vial) 60 mg Q8HRS IV Last administered on 11/28/16 06:31; Start 11/26/16 at 14:00; Stop 11/28/16 at 10: 14; Status DC Albuterol/ Ipratropium 3 ml 3 ml Q4HRS NEB Last administered on 11/28/16 06:11 ; Start 11/26/16 at 12:00 Magnesium Sulfate/ Dextrose (Magnesium Sulfate PREMIX 2GM) 50 ml @ 25 mls/hr PRN DAILY PRN IV for Mag < 1.7 on am labs; Start 11/26/16 at 13:15 Docusate Sodium (Colace) 100 mg DAILY PO Last administered on 11/28/16 08:35; Start 11/26/16 at 14:00 Glipizide (Glucotrol) 5 mg DAILY PO Last administered on 11/28/16 08:36; Start 11/26/16 at 14:00 Nystatin (Nystop) 1 sapna BID TP Last administered on 11/28/16 08:36; Start at 14:00 Gabapentin 300 mg 300 mg TID PO Last administered on 11/28/16 08:36; Start 11/26 at 14:00 Iron Sucrose/ Sodium Chloride (Venofer/Iv Sodium Chloride 0.9% 100ml) 110 ml @ 55 mls/hr 3X/WEEK IV Last administered on 11/28/16 08:36; Start 11/26/16 at 15: 00; Stop 12/05/16 at 10:59 Barium Sulfate (Varibar Thin Liquid Apple) 148 gm 1X ONCE PO Last administered on 11/27/16 11:42; Start 11/27/16 at 10:00; Stop 11/27/16 at 10:01; Status DC Darbepoetin Hang (Aranesp) 60 mcg [id number] SQ Last administered on 11/27/16 21: 59; Start 11/27/16 at 21:00 Guaifenesin (Mucinex) 600 mg BID PO Last administered on 11/28/16 08:35; Start 11/27/16 at 12:30 Insulin Detemir (Levemir) 10 units QHS SQ Last administered on 11/27/16 22:01; Start 11/27/16 at 21:00 Hydralazine HCl 10 mg 10 mg Q8HRS PO Last administered on 11/28/16 06:34; Start 11/27/16 at 14:00 Vancomycin HCl/ Sodium Chloride (Iv Sodium Chloride 0.9% 250ml) 250 ml @ 250 mls/hr Q24H IV ; Start 11/28/16 at 13:00 Budesonide (Pulmicort) 0.5 mg RTBID NEB Last administered on 11/28/16 06:10; Start 11/27/16 at 20:00 Methylprednisolone Sodium Succinate (Solu-Medrol 125mg Vial) 60 mg BID IV ; Start 11/28/16 at 21:00 Active Scripts Active Reported Nystatin 15 Gm Powder 1 Sapna TP BID Lisinopril 20 Mg Tablet 20 Mg PO DAILY Glucotrol (Glipizide) 5 Mg Tablet 5 Mg PO DAILY Gabapentin 300 Mg Capsule 300 Mg PO TID Furosemide 40 Mg Tablet 40 Mg IVP DAILY Docusate Sodium 100 Mg Capsule 100 Mg PO DAILY Vitals/I & O Vital Sign - Last 24 Hours 11/27/16 11/27/16 11/27/16 11/27/16 15:00 15:04 15:05 15:29 Temp 97.7 97.7 Pulse 93 93 Resp 24 B/P 103/73 103/73 Pulse Ox 94 O2 Delivery Nasal Cannula Nasal Cannula Nasal Cannula O2 Flow Rate 2.0 2.0 2.0 11/27/16 11/27/16 11/27/16 11/27/16 16:27 19:59 20:00 21:07 Temp 97.4 97.4 Pulse 91 Resp 22 B/P 140/67 Pulse Ox 96 96 O2 Delivery Nasal Cannula Nasal Cannula Nasal Cannula Nasal Cannula O2 Flow Rate 2.0 2.0 2.0 2.0 11/27/16 11/27/16 11/28/16 11/28/16 21:48 23:19 00:15 03:35 Temp 96.9 96.9 Pulse 91 86 Resp 20 B/P 140/67 144/71 Pulse Ox 95 O2 Delivery Nasal Cannula Nasal Cannula Nasal Cannula O2 Flow Rate 2.0 2.0 2.0 11/28/16 11/28/16 11/28/16 11/28/16 03:53 06:12 06:12 06:34 Temp 95.8 95.8 Pulse 80 86 Resp 20 B/P 146/77 140/72 Pulse Ox 96 O2 Delivery Nasal Cannula Nasal Cannula Nasal Cannula O2 Flow Rate 2.0 2.0 2.0 11/28/16 11/28/16 11/28/16 07:00 08:00 11:00 Temp 97.5 97.5 97.5 97.5 Pulse 84 86 Resp 20 20 B/P 120/50 143/62 Pulse Ox 94 97 O2 Delivery Nasal Cannula Nasal Cannula Nasal Cannula O2 Flow Rate 2.0 2.0 2.0 Intake and Output 11/27/16 11/27/16 11/28/16 15:00 23:00 07:00 Intake Total 1200 ml 75 ml 50 ml Output Total 500 ml 475 ml Balance 1200 ml -425 ml -425 ml ADDISON SPANN MD Nov 28, 2016 11:08
--- NOTE | 2016-11-28 11:36 | PDOC ---
CARDIO Progress Notes Date and Time Date of Service 11/28/16 Time of Evaluation 1045 Subjective Subjective: No Chest Pain, No Palpitations, No Dizziness, Other (cough persists - nonproductive. Mild dyspnea with activity. Up in chair ) Vitals Vitals Vital Signs Date Time Temp Pulse Resp B/P Pulse Ox O2 Delivery O2 Flow Rate FiO2 11/28/16 11:00 97.5 86 20 143/62 97 Nasal Cannula 2.0 97.5 Weight Weight [ ] Input and Output Intake and Output Intake and Output 11/28/16 07:00 Intake Total 1325 ml Output Total 975 ml Balance 350 ml Intake Oral 1250 ml IV Total 75 ml Output Urine Total 975 ml # Bowel Movements 1 Laboratory Labs Laboratory Tests Test 11/27/16 12:06 11/27/16 13:30 11/27/16 17:12 11/27/16 20:20 Glucose (Fingerstick) 288mg/dL (70-99) 213mg/dL (70-99) 274mg/dL (70-99) Erythrocyte Sedimentation Rate 133 (0-25) Procalcitonin 0.31ng/mL (0.00-0.10) Vancomycin Level Trough 29.9mcg/mL (10.0-20.0) Vancomycin Last Dose Date 11/26/16 Vancomycin Last Dose Time 1400 Test 11/28/16 04:00 11/28/16 07:41 Sodium Level 143mmol/L (136-145) Potassium Level 3.9mmol/L (3.5-5.1) Chloride Level 107mmol/L (98-107) Carbon Dioxide Level 25mmol/L (21-32) Anion Gap 11 (6-14) Blood Urea Nitrogen 63mg/dL (7-20) Creatinine 2.0mg/dL (0.6-1.0) Estimated GFR (Cockcroft-Gault) 23.7 Glucose Level 222mg/dL (70-99) Calcium Level 9.5mg/dL (8.5-10.1) Phosphorus Level 3.9mg/dL (2.6-4.7) Magnesium Level 2.6mg/dL (1.8-2.4) Albumin 2.5g/dL (3.4-5.0) Glucose (Fingerstick) 201mg/dL (70-99) Microbiology Micro Microbiology 11/25/16 Blood Culture - Preliminary, Resulted NO GROWTH AFTER 2 DAYS Physical Exam HEENT: Neck Supple W Full Motion Chest: Symmetric LUNGS: Other (exp wheezing thoughout. diminished ) Heart: S1S2, RRR Abdomen: Soft N/T (truncal obesity) Extremities: No Calf Tenderness, Other (1+ bilateral ankle edema with 2-3+ mid- calf and up; similar edema in bilateral UE) Neurology: alert, oriented, follow commands Diagnostic Tests Echocardiogram: Other (LVEF 40-45%; moderate pulm HTN with PA of 49; mild global hypokinesis and abnormal septal wall motion; mild TR) Assessment Assessment 1. acute/chronic systolic and diastolic CHF LVEF depressed @ 40-45% with mild global hypokinesis and abnormal septal wall motion appears fairly well compensated no beta-blockers due to persistent wheezing; no ACEI due to renal function will defer diuresis to nephrology with ROB 2. cardiomyopathy depressed LVEF with WMA on echo as noted above not currently a candidate for cardiac cath for further evaluation consider MPI as outpatient when acute issues resolve continue medical management 3. acute/chronic respiratory failure COPD history with pneumonia ? aspiration- now on dysphagia diet CXR improving per PULM 4. acute/chronic renal insufficiency Cr trending downward; now 2.0 per nephrology 5. PSVT brief in duration. Rhythm well-controlled overall continue to monitor no BB for rate control with wheezing would also avoid CCB due to her already significant LE edema 6. HTN better controlled with addition of hydralazine SIDRA IGLESIAS APRN Nov 28, 2016 11:36
[2016-11-28 11:40] LABS: NEG OBC FOB NEG; POS OBC FOB POS
[2016-11-28] MEDS: VANCOMYCIN 750 MG in IV NORMAL SALINE 250ML 250 ML IV SCH (12:18)
--- NOTE | 2016-11-28 14:53 | PDOC ---
SUBJECTIVE ROS ROB vs CKD III doing Better overall, hematuria is resolving CVS: no Orthopnea, no CP RESP: no SOB, no SOLIS GI: no Nausea, no Vomiting : no Dysuria, no Urgency OBJECTIVE Vital Signs Vital Signs Date Time Temp Pulse Resp B/P Pulse Ox O2 Delivery O2 Flow Rate FiO2 11/28/16 14:05 86 143/62 11/28/16 11:54 97 Nasal Cannula 3.5 11/28/16 11:00 97.5 20 97.5 I & 0 Intake and Output 11/28/16 07:00 Intake Total 1325 ml Output Total 975 ml Balance 350 ml Intake Oral 1250 ml IV Total 75 ml Output Urine Total 975 ml # Bowel Movements 1 PHYSICAL EXAM Physical Exam General Appearance: Awake Alert Oriented x 3 In no Distress Eyes: VIsion Unchanged Conjunctiva Normal EN: No EN Drainage Mucous Memb. moist, many missing teeth Neck: no JVD min JVP Supple no Thyromegaly CVS: S1 S2 ? Murmur No Gallop No Rub + Edema (some Brawny); +1 pulse in DP Resp: no Rales no Rhonchi no Acc. Muscle use; distal BS GI: BS +ve NO Bruit Non Tender Non Distended; Obese : no CVA tenderness; no Suprapubic Tenderness Assessment & Plan ROB - Creat is imrpoving. W/up as ordered. Creat stable today but Uo is still somewhat marginal. Now with Hematuria too (so 24-hr Urine was held) . SHE had significant Urinary retention so Presley placed and now watch UO. Current FLuid and E-lyte status does not necessitate emergent need for Dialysis. Will re- evaluate for Dialysis in am Oliguria - cannot R/o ATN per se. No UA done yet Hematuria - URO eval prn - clearing up after urinary retention Urinary retention - URO eval CKD III/ Iv - baseline Creat is thot to be 1.7, (DM/ HTNsive / NS cannot beruled out, besides obesity related etios) but she was 2.3 OA at [facility]. will need OP labs from Dr Ferraro. e is not aware of diagnosis of CKD per se Anemia: (fe def ) and some suspect due to recent hospitalization. start Epogen Transfuse as needed. IV Iron Proteinuria as noted from UA at [facility] - quantitate with 24-hr urine but now willbe abnormal due to Hematuria - so start in am Pn - ? pulm Renal syndrome - ^^ed ESR noted and and ProCal is minimally ^ed - ANCAs ordered; she does admit to some Sinus congestion and fullness in her ear too HTN: Current BP meds reviewed. See orders for changes. Edema - ? Liver vs RHF etio. Obesity related phenomenon. May not be able to clear edema without [employer] Discussed Plan of Care and prognosis etc. at length with family (son) COMMENT/RELEVANT DATA Meds Current Medications Medications (Trade) Dose Ordered Sig/Marga Start Time Stop Time Status Last Admin Dose Admin Acetaminophen (Tylenol) 650 mg PRN Q6HRS PRN 11/25/16 12:30 Acetaminophen/ Hydrocodone Bitart (Lortab 5/325) 1 tab PRN Q4HRS PRN 11/25/16 12:30 11/27/16 15:05 1 TAB Albuterol Sulfate (Ventolin Neb Soln) 2.5 mg PRN Q4HRS PRN 11/25/16 14:00 Albuterol/ Ipratropium (Duoneb) 3 ml RTQID 11/25/16 16:00 11/26/16 09:29 DC 11/26/16 07:45 3 ML Albuterol/ Ipratropium 3 ml 3 ml Q4HRS 11/26/16 12:00 11/28/16 11:53 3 ML Barium Sulfate (Varibar Thin Liquid Apple) 148 gm 1X ONCE 11/27/16 10:00 11/27/16 10:01 DC 11/27/16 11:42 148 GM Budesonide (Pulmicort) 0.5 mg RTBID 11/27/16 20:00 11/28/16 06:10 0.5 MG Darbepoetin Hang (Aranesp) 60 mcg WEEKLYHS 11/27/16 21:00 11/27/16 21:59 60 MCG Dextrose 12.5 gm 12.5 gm PRN Q15MIN PRN 11/25/16 14:00 Docusate Sodium (Colace) 100 mg DAILY 11/26/16 14:00 11/28/16 08:35 100 MG Gabapentin 300 mg 300 mg TID 11/26/16 14:00 11/28/16 14:04 300 MG Glipizide (Glucotrol) 5 mg DAILY 11/26/16 14:00 11/28/16 08:36 5 MG Guaifenesin (Mucinex) 600 mg BID 11/27/16 12:30 11/28/16 08:35 600 MG Heparin Sodium (Porcine) 5,000 unit Q8HRS 11/25/16 14:00 11/27/16 11:00 DC 11/27/16 06:07 5,000 UNIT Hydralazine HCl 10 mg 10 mg Q8HRS 11/27/16 14:00 11/28/16 14:05 10 MG Insulin Aspart (Novolog) 0-9 UNITS TIDWMEALS 11/25/16 17:00 11/28/16 12:25 7 UNITS Insulin Detemir (Levemir) 10 units QHS 11/27/16 21:00 11/27/16 22:01 10 UNITS Iron Sucrose/ Sodium Chloride (Venofer/Iv Sodium Chloride 0.9% 100ml) 110 ml @ 55 mls/hr 3X/WEEK 11/26/16 15:00 12/05/16 10:59 11/28/16 08:36 55 MLS/HR Magnesium Sulfate/ Dextrose (Magnesium Sulfate PREMIX 2GM) 50 ml @ 25 mls/hr PRN DAILY PRN 11/26/16 13:15 Methylprednisolone Sodium Succinate (Solu-Medrol 40mg Vial) 40 mg Q8HRS 11/25/16 17:00 11/26/16 09:27 DC 11/26/16 05:51 40 MG Methylprednisolone Sodium Succinate (Solu-Medrol 125mg Vial) 60 mg BID 11/28/16 21:00 Morphine Sulfate 1 mg PRN Q1HR PRN 11/25/16 12:30 Nystatin (Nystop) 1 natasha BID 11/26/16 14:00 11/28/16 08:36 1 NATASHA Ondansetron HCl (Zofran) 4 mg PRN Q6HRS PRN 11/25/16 12:30 Piperacillin Sod/ Tazobactam Sod (Zosyn Per Pharmacy) 1 each PRN DAILY PRN 11/25/16 12:30 Piperacillin Sod/ Tazobactam Sod/ Sodium Chloride (Zosyn/Iv Sodium Chloride 0.9% 50ml) 50 ml @ 100 mls/hr Q8HRS 11/25/16 15:00 11/28/16 14:04 100 MLS/HR Vancomycin HCl 1 each 1X ONCE 11/27/16 13:30 11/27/16 13:31 DC 11/27/16 13:30 1 EACH Vancomycin HCl 1.75 gm/Sodium Chloride 500 ml @ 250 mls/hr 1X ONCE 11/25/16 12:30 11/25/16 14:29 UNV Vancomycin HCl 1 each 1 each PRN DAILY PRN 11/25/16 12:30 11/27/16 14:43 1 EACH Vancomycin HCl/ Sodium Chloride (Iv Sodium Chloride 0.9% 250ml) 250 ml @ 250 mls/hr Q24H 11/28/16 13:00 11/28/16 12:18 250 MLS/HR Vancomycin HCl/ Sodium Chloride (Iv Sodium Chloride 0.9% 500ml Bag) 500 ml @ 250 mls/hr 1X ONCE 11/25/16 14:00 11/25/16 15:59 DC 11/25/16 14:18 250 MLS/HR Lab Laboratory Tests Test 11/27/16 17:12 11/27/16 20:20 11/28/16 04:00 11/28/16 07:41 Glucose (Fingerstick) 213mg/dL (70-99) 274mg/dL (70-99) 201mg/dL (70-99) Sodium Level 143mmol/L (136-145) Potassium Level 3.9mmol/L (3.5-5.1) Chloride Level 107mmol/L (98-107) Carbon Dioxide Level 25mmol/L (21-32) Anion Gap 11 (6-14) Blood Urea Nitrogen 63mg/dL (7-20) Creatinine 2.0mg/dL (0.6-1.0) Estimated GFR (Cockcroft-Gault) 23.7 Glucose Level 222mg/dL (70-99) Calcium Level 9.5mg/dL (8.5-10.1) Phosphorus Level 3.9mg/dL (2.6-4.7) Magnesium Level 2.6mg/dL (1.8-2.4) Albumin 2.5g/dL (3.4-5.0) Test 11/28/16 10:35 11/28/16 11:52 Stool Occult Blood Negative (NEG) Glucose (Fingerstick) 265mg/dL (70-99) KILLIAN ACOSTA MD Nov 28, 2016 14:53
[2016-11-28 15:00] VITALS: BP 151/63
[2016-11-28 15:26] LABS: KAPPA LAMBDA RATIO 1.38 (0.26-1.65)
[2016-11-28 19:41] VITALS: BP 162/52
[2016-11-28] MEDS ORDERED: DARBEPOETIN ALFA 60 MCG/0.3 ML DISP.SYRIN. SQ SCH (21:00)
[2016-11-28] MEDS: INSULIN DETEMIR 300 UNITS/3 ML INSULN.PEN. SQ SCH (21:38)
[2016-11-28 23:14] VITALS: BP 152/57
[2016-11-29 03:36] VITALS: BP 160/68
[2016-11-29] MEDS: IPRATRPIUM/ALBUTEROL 0.5/2.5MG 3 ML NEBU. NEB SCH ×5 (04:10→21:18)
[2016-11-29 04:20] LABS: C3 COMPLEMENT 131 mg/dL (82-167); C4 COMPLEMENT 25 mg/dL (14-44)
[2016-11-29 05:26] LABS: BASO % 0 % (0-3); EOS % 0 % (0-3); HEMATOCRIT 27.2 % (36.0-47.0); HEMOGLOBIN 8.8 g/dL (12.0-15.5); LYMPH # 1.1 x10^3/uL (1.0-4.8); LYMPH % 10 % (24-48); MEAN CORPUSCULAR HEMOGLOBIN 32 pg (25-35); MEAN CORPUSCULAR HGB CONC 32 g/dL (31-37); MEAN CORPUSCULAR VOLUME 97 fL (79-100); MONO % 7 % (0-9); NEUT % 84 % (31-73); PLATELET COUNT 314 x10^3/uL (140-400); RED CELL DISTRIBUTION WIDTH 15.8 % (11.5-14.5); WHITE BLOOD COUNT 11.9 x10^3/uL (4.0-11.0)
[2016-11-29] MEDS: PIPERACILLIN/TAZOBACTAM 2.25 GM in IV NORMAL SALINE 50ML 50 ML IV SCH ×3 (05:43→21:47)
[2016-11-29] MEDS: HYDRALAZINE 10 MG TABLET PO SCH ×3 (05:44→21:48)
[2016-11-29 05:53] LABS: ALBUMIN 2.6 g/dL (3.4-5.0); CALCIUM 9.5 mg/dL (8.5-10.1); CREATININE 1.8 mg/dL (0.6-1.0); GFR 26.7; PHOSPHORUS 3.2 mg/dL (2.6-4.7); POTASSIUM 3.5 mmol/L (3.5-5.1)
[2016-11-29 07:00] VITALS: BP 145/93
[2016-11-29] MEDS: methylPREDNISolone SOD SUCC PF 125 MG/2 ML VIAL. IV SCH (08:22)
[2016-11-29] MEDS: GLIPIZIDE 5 MG TABLET. PO SCH (08:23)
[2016-11-29] MEDS: GUAIFENESIN ER 600 MG TABLET.ER PO SCH ×2 (08:23→21:47)
[2016-11-29] MEDS: GABAPENTIN 300 MG CAPSULE. PO SCH ×2 (08:23→21:47)
[2016-11-29] MEDS: HYDROCODONE/APAP 5/325MG TABLET. PO PRN (08:23)
[2016-11-29] MEDS: NYSTATIN TOPICAL POWDER 15GM BOTTLE. TP SCH ×2 (08:24→21:47)
[2016-11-29] MEDS: INSULIN ASPART 300 UNITS/3 ML INSULN.PEN SQ SCH ×3 (08:29→17:27)
[2016-11-29] MEDS: DOCUSATE SODIUM 100 MG CAPSULE. PO SCH (08:31)
[2016-11-29] MEDS: BUDESONIDE 0.5 MG/2 ML NEBU. NEB SCH ×2 (09:24→21:18)
[2016-11-29 11:00] VITALS: BP 151/55
--- NOTE | 2016-11-29 11:41 | PDOC ---
PULMONARY PROGRESS NOTES Subjective Pt feels better, sob is better. has cough, nasal congestion Vitals Vital Signs Date Time Temp Pulse Resp B/P Pulse Ox O2 Delivery O2 Flow Rate FiO2 11/29/16 11:00 97.7 78 18 151/55 96 Nasal Cannula 3.0 97.7 ROS: No Nausea, No Chest Pain, No Abdominal Pain General: Alert HEENT: Other (nc at perrl) Lungs: Crackles (bl mild crackles) Cardiovascular: S1, S2 Abdomen: Soft, Non-tender Neuro Exam: Alert, Oriented Extremities: No Edema Skin: Warm Labs Laboratory Tests Test 11/27/16 12:06 11/27/16 13:30 11/27/16 17:12 11/27/16 20:20 Glucose (Fingerstick) 288mg/dL (70-99) 213mg/dL (70-99) 274mg/dL (70-99) Erythrocyte Sedimentation Rate 133 (0-25) Procalcitonin 0.31ng/mL (0.00-0.10) Vancomycin Level Trough 29.9mcg/mL (10.0-20.0) Vancomycin Last Dose Date 11/26/16 Vancomycin Last Dose Time 1400 Test 11/28/16 04:00 11/28/16 07:41 11/28/16 10:35 11/28/16 11:52 Sodium Level 143mmol/L (136-145) Potassium Level 3.9mmol/L (3.5-5.1) Chloride Level 107mmol/L (98-107) Carbon Dioxide Level 25mmol/L (21-32) Anion Gap 11 (6-14) Blood Urea Nitrogen 63mg/dL (7-20) Creatinine 2.0mg/dL (0.6-1.0) Estimated GFR (Cockcroft-Gault) 23.7 Glucose Level 222mg/dL (70-99) Calcium Level 9.5mg/dL (8.5-10.1) Phosphorus Level 3.9mg/dL (2.6-4.7) Magnesium Level 2.6mg/dL (1.8-2.4) Albumin 2.5g/dL (3.4-5.0) Glucose (Fingerstick) 201mg/dL (70-99) 265mg/dL (70-99) Stool Occult Blood Negative (NEG) Test 11/28/16 15:15 11/28/16 16:53 11/28/16 20:38 11/29/16 04:36 Complement C3 131mg/dL (82-167) Complement C4 25mg/dL (14-44) Glucose (Fingerstick) 290mg/dL (70-99) 239mg/dL (70-99) White Blood Count 11.9x10^3/uL (4.0-11.0) Red Blood Count 2.80x10^6/uL (3.50-5.40) Hemoglobin 8.8g/dL (12.0-15.5) Hematocrit 27.2% (36.0-47.0) Mean Corpuscular Volume 97fL (79-100) Mean Corpuscular Hemoglobin 32pg (25-35) Mean Corpuscular Hemoglobin Concent 32g/dL (31-37) Red Cell Distribution Width 15.8% (11.5-14.5) Platelet Count 314x10^3/uL (140-400) Neutrophils (%) (Auto) 84% (31-73) Lymphocytes (%) (Auto) 10% (24-48) Monocytes (%) (Auto) 7% (0-9) Eosinophils (%) (Auto) 0% (0-3) Basophils (%) (Auto) 0% (0-3) Neutrophils # (Auto) 10.0x10^3uL (1.8-7.7) Lymphocytes # (Auto) 1.1x10^3/uL (1.0-4.8) Monocytes # (Auto) 0.8x10^3/uL (0.0-1.1) Eosinophils # (Auto) 0.0x10^3/uL (0.0-0.7) Basophils # (Auto) 0.0x10^3/uL (0.0-0.2) Sodium Level 144mmol/L (136-145) Potassium Level 3.5mmol/L (3.5-5.1) Chloride Level 109mmol/L (98-107) Carbon Dioxide Level 27mmol/L (21-32) Anion Gap 8 (6-14) Blood Urea Nitrogen 62mg/dL (7-20) Creatinine 1.8mg/dL (0.6-1.0) Estimated GFR (Cockcroft-Gault) 26.7 Glucose Level 213mg/dL (70-99) Calcium Level 9.5mg/dL (8.5-10.1) Phosphorus Level 3.2mg/dL (2.6-4.7) Magnesium Level 2.5mg/dL (1.8-2.4) Albumin 2.6g/dL (3.4-5.0) Test 11/29/16 07:29 Glucose (Fingerstick) 209mg/dL (70-99) Laboratory Tests Test 11/28/16 11:52 11/28/16 15:15 11/28/16 16:53 11/28/16 20:38 Glucose (Fingerstick) 265mg/dL (70-99) 290mg/dL (70-99) 239mg/dL (70-99) Complement C3 131mg/dL (82-167) Complement C4 25mg/dL (14-44) Test 11/29/16 04:36 11/29/16 07:29 White Blood Count 11.9x10^3/uL (4.0-11.0) Red Blood Count 2.80x10^6/uL (3.50-5.40) Hemoglobin 8.8g/dL (12.0-15.5) Hematocrit 27.2% (36.0-47.0) Mean Corpuscular Volume 97fL (79-100) Mean Corpuscular Hemoglobin 32pg (25-35) Mean Corpuscular Hemoglobin Concent 32g/dL (31-37) Red Cell Distribution Width 15.8% (11.5-14.5) Platelet Count 314x10^3/uL (140-400) Neutrophils (%) (Auto) 84% (31-73) Lymphocytes (%) (Auto) 10% (24-48) Monocytes (%) (Auto) 7% (0-9) Eosinophils (%) (Auto) 0% (0-3) Basophils (%) (Auto) 0% (0-3) Neutrophils # (Auto) 10.0x10^3uL (1.8-7.7) Lymphocytes # (Auto) 1.1x10^3/uL (1.0-4.8) Monocytes # (Auto) 0.8x10^3/uL (0.0-1.1) Eosinophils # (Auto) 0.0x10^3/uL (0.0-0.7) Basophils # (Auto) 0.0x10^3/uL (0.0-0.2) Sodium Level 144mmol/L (136-145) Potassium Level 3.5mmol/L (3.5-5.1) Chloride Level 109mmol/L (98-107) Carbon Dioxide Level 27mmol/L (21-32) Anion Gap 8 (6-14) Blood Urea Nitrogen 62mg/dL (7-20) Creatinine 1.8mg/dL (0.6-1.0) Estimated GFR (Cockcroft-Gault) 26.7 Glucose Level 213mg/dL (70-99) Calcium Level 9.5mg/dL (8.5-10.1) Phosphorus Level 3.2mg/dL (2.6-4.7) Magnesium Level 2.5mg/dL (1.8-2.4) Albumin 2.6g/dL (3.4-5.0) Glucose (Fingerstick) 209mg/dL (70-99) Medications Active Scripts Medications Dose Route/Sig Days Date Category Nystatin 15 Gm Powder 1 Sapna TP BID 11/25/16 Reported Lisinopril 20 Mg Tablet 20 Mg PO DAILY 11/25/16 Reported Glucotrol (Glipizide) 5 Mg Tablet 5 Mg PO DAILY 11/25/16 Reported Gabapentin 300 Mg Capsule 300 Mg PO TID 11/25/16 Reported Furosemide 40 Mg Tablet 40 Mg IVP DAILY 11/25/16 Reported Docusate Sodium 100 Mg Capsule 100 Mg PO DAILY 11/25/16 Reported Impression . 1. Dyspnea / Acute hypoxic Respiratory failure secondary to multifactorial etiologies including acute exacerbation of chronic obstructive pulmonary disease along with pneumonia involving the right lung. 2. Abnormal CT chest with extensive pneumonia in the right lung. We will cover for gram-negative and gram-positive organisms for healthcare-associated pneumonia. 3. Underlying chronic obstructive pulmonary disease with exacerbation. 4. Acute kidney injury. 5. Small to moderate right pleural effusion. We will monitor for now. Plan . 1. clinically improved with BIPAP. We will continue with broad-spectrum antibiotics. 2. Continue with DuoNebs. 3. change Solu-Medrol to 40 mg bid 4. add singulair 5. Follow chest x-rays today with improving infiltrates. De -escalate antibiotics discussed w pt and her daughter. CHAITANYA SPENCE MD Nov 29, 2016 11:41
[2016-11-29] MEDS: VANCOMYCIN 750 MG in IV NORMAL SALINE 250ML 250 ML IV SCH (11:59)
--- NOTE | 2016-11-29 13:15 | PDOC ---
PROGRESS NOTES Chief Complaint Chief Complaint pna 1. acute resp failure with HAP 2. recent bl leg cellulitis 3. h/o systolic CHF EF 40% 4. h/o CAD 5. ROB on CKD3, ATN 6. dm2 7. COPD 8. h/o stroke 9. morbid obesity 10. HTN 11.sepsis with 1 12. moderate PHTN 13. urinary retention 14. hematuria with anthony plan: 1. card, pulm, renal consulted 2. CXR, CT , renal US done 3. labs am 4. ssi, duoneb. solumedrol decrease to bid 5. cont home meds, hold lasix and lisinopril for now 6. blcx, sputum cx. add vanco and zosyn 7. dvt ppx ptot CT chest showed possible renal mass, may need CT, but with ROB , CT wo contrast is not ideal for now. renal aware. Swallow eval done, on dysphagia 2 diet add levemir since on high dose solumedrol, SSI. get URo consult, dc heparin for now will do bl leg dupplex to rule out DVT, PAD History of Present Illness History of Present Illness choked 4/ then cough a lot, better on 11/28 on NC 2-3L on anthony 11/26, hematuria, oliguria, US showed distended bladder. hematuria gone , mild on 11/29 CXR better still bl leg pain with tenderness Vitals Vitals Vital Signs Date Time Temp Pulse Resp B/P Pulse Ox O2 Delivery O2 Flow Rate FiO2 11/29/16 11:00 97.7 78 18 151/55 96 Nasal Cannula 3.0 97.7 Physical Exam General: Alert, Oriented X3, Cooperative Heart: Regular rate, Normal S1 (mild ) Lungs: Crackles (bl mild crackles) Abdomen: Normal bowel sounds, Soft Extremities: No clubbing, No cyanosis Labs LABS Laboratory Tests Test 11/28/16 15:15 11/28/16 16:53 11/28/16 20:38 11/29/16 04:36 Complement C3 131mg/dL (82-167) Complement C4 25mg/dL (14-44) Glucose (Fingerstick) 290mg/dL (70-99) 239mg/dL (70-99) White Blood Count 11.9x10^3/uL (4.0-11.0) Red Blood Count 2.80x10^6/uL (3.50-5.40) Hemoglobin 8.8g/dL (12.0-15.5) Hematocrit 27.2% (36.0-47.0) Mean Corpuscular Volume 97fL (79-100) Mean Corpuscular Hemoglobin 32pg (25-35) Mean Corpuscular Hemoglobin Concent 32g/dL (31-37) Red Cell Distribution Width 15.8% (11.5-14.5) Platelet Count 314x10^3/uL (140-400) Neutrophils (%) (Auto) 84% (31-73) Lymphocytes (%) (Auto) 10% (24-48) Monocytes (%) (Auto) 7% (0-9) Eosinophils (%) (Auto) 0% (0-3) Basophils (%) (Auto) 0% (0-3) Neutrophils # (Auto) 10.0x10^3uL (1.8-7.7) Lymphocytes # (Auto) 1.1x10^3/uL (1.0-4.8) Monocytes # (Auto) 0.8x10^3/uL (0.0-1.1) Eosinophils # (Auto) 0.0x10^3/uL (0.0-0.7) Basophils # (Auto) 0.0x10^3/uL (0.0-0.2) Sodium Level 144mmol/L (136-145) Potassium Level 3.5mmol/L (3.5-5.1) Chloride Level 109mmol/L (98-107) Carbon Dioxide Level 27mmol/L (21-32) Anion Gap 8 (6-14) Blood Urea Nitrogen 62mg/dL (7-20) Creatinine 1.8mg/dL (0.6-1.0) Estimated GFR (Cockcroft-Gault) 26.7 Glucose Level 213mg/dL (70-99) Calcium Level 9.5mg/dL (8.5-10.1) Phosphorus Level 3.2mg/dL (2.6-4.7) Magnesium Level 2.5mg/dL (1.8-2.4) Albumin 2.6g/dL (3.4-5.0) Test 11/29/16 07:29 11/29/16 11:48 Glucose (Fingerstick) 209mg/dL (70-99) 193mg/dL (70-99) Review of Systems Review of Systems no fever, chills, chest pain Assessment and Plan Assessmemt and Plan Problems Medical Problems: (1) Pneumonia Status: Acute Problems: Comment Review of Relevant I have reviewed the following items missy (where applicable) has been applied. Labs Laboratory Tests Test 11/27/16 13:30 11/27/16 17:12 11/27/16 20:20 11/28/16 04:00 Erythrocyte Sedimentation Rate 133 (0-25) Procalcitonin 0.31ng/mL (0.00-0.10) Vancomycin Level Trough 29.9mcg/mL (10.0-20.0) Vancomycin Last Dose Date 11/26/16 Vancomycin Last Dose Time 1400 Glucose (Fingerstick) 213mg/dL (70-99) 274mg/dL (70-99) Sodium Level 143mmol/L (136-145) Potassium Level 3.9mmol/L (3.5-5.1) Chloride Level 107mmol/L (98-107) Carbon Dioxide Level 25mmol/L (21-32) Anion Gap 11 (6-14) Blood Urea Nitrogen 63mg/dL (7-20) Creatinine 2.0mg/dL (0.6-1.0) Estimated GFR (Cockcroft-Gault) 23.7 Glucose Level 222mg/dL (70-99) Calcium Level 9.5mg/dL (8.5-10.1) Phosphorus Level 3.9mg/dL (2.6-4.7) Magnesium Level 2.6mg/dL (1.8-2.4) Albumin 2.5g/dL (3.4-5.0) Test 11/28/16 07:41 11/28/16 10:35 11/28/16 11:52 11/28/16 15:15 Glucose (Fingerstick) 201mg/dL (70-99) 265mg/dL (70-99) Stool Occult Blood Negative (NEG) Complement C3 131mg/dL (82-167) Complement C4 25mg/dL (14-44) Test 11/28/16 16:53 11/28/16 20:38 11/29/16 04:36 11/29/16 07:29 Glucose (Fingerstick) 290mg/dL (70-99) 239mg/dL (70-99) 209mg/dL (70-99) White Blood Count 11.9x10^3/uL (4.0-11.0) Red Blood Count 2.80x10^6/uL (3.50-5.40) Hemoglobin 8.8g/dL (12.0-15.5) Hematocrit 27.2% (36.0-47.0) Mean Corpuscular Volume 97fL (79-100) Mean Corpuscular Hemoglobin 32pg (25-35) Mean Corpuscular Hemoglobin Concent 32g/dL (31-37) Red Cell Distribution Width 15.8% (11.5-14.5) Platelet Count 314x10^3/uL (140-400) Neutrophils (%) (Auto) 84% (31-73) Lymphocytes (%) (Auto) 10% (24-48) Monocytes (%) (Auto) 7% (0-9) Eosinophils (%) (Auto) 0% (0-3) Basophils (%) (Auto) 0% (0-3) Neutrophils # (Auto) 10.0x10^3uL (1.8-7.7) Lymphocytes # (Auto) 1.1x10^3/uL (1.0-4.8) Monocytes # (Auto) 0.8x10^3/uL (0.0-1.1) Eosinophils # (Auto) 0.0x10^3/uL (0.0-0.7) Basophils # (Auto) 0.0x10^3/uL (0.0-0.2) Sodium Level 144mmol/L (136-145) Potassium Level 3.5mmol/L (3.5-5.1) Chloride Level 109mmol/L (98-107) Carbon Dioxide Level 27mmol/L (21-32) Anion Gap 8 (6-14) Blood Urea Nitrogen 62mg/dL (7-20) Creatinine 1.8mg/dL (0.6-1.0) Estimated GFR (Cockcroft-Gault) 26.7 Glucose Level 213mg/dL (70-99) Calcium Level 9.5mg/dL (8.5-10.1) Phosphorus Level 3.2mg/dL (2.6-4.7) Magnesium Level 2.5mg/dL (1.8-2.4) Albumin 2.6g/dL (3.4-5.0) Test 11/29/16 11:48 Glucose (Fingerstick) 193mg/dL (70-99) Laboratory Tests Test 11/28/16 15:15 11/28/16 16:53 11/28/16 20:38 11/29/16 04:36 Complement C3 131mg/dL (82-167) Complement C4 25mg/dL (14-44) Glucose (Fingerstick) 290mg/dL (70-99) 239mg/dL (70-99) White Blood Count 11.9x10^3/uL (4.0-11.0) Red Blood Count 2.80x10^6/uL (3.50-5.40) Hemoglobin 8.8g/dL (12.0-15.5) Hematocrit 27.2% (36.0-47.0) Mean Corpuscular Volume 97fL (79-100) Mean Corpuscular Hemoglobin 32pg (25-35) Mean Corpuscular Hemoglobin Concent 32g/dL (31-37) Red Cell Distribution Width 15.8% (11.5-14.5) Platelet Count 314x10^3/uL (140-400) Neutrophils (%) (Auto) 84% (31-73) Lymphocytes (%) (Auto) 10% (24-48) Monocytes (%) (Auto) 7% (0-9) Eosinophils (%) (Auto) 0% (0-3) Basophils (%) (Auto) 0% (0-3) Neutrophils # (Auto) 10.0x10^3uL (1.8-7.7) Lymphocytes # (Auto) 1.1x10^3/uL (1.0-4.8) Monocytes # (Auto) 0.8x10^3/uL (0.0-1.1) Eosinophils # (Auto) 0.0x10^3/uL (0.0-0.7) Basophils # (Auto) 0.0x10^3/uL (0.0-0.2) Sodium Level 144mmol/L (136-145) Potassium Level 3.5mmol/L (3.5-5.1) Chloride Level 109mmol/L (98-107) Carbon Dioxide Level 27mmol/L (21-32) Anion Gap 8 (6-14) Blood Urea Nitrogen 62mg/dL (7-20) Creatinine 1.8mg/dL (0.6-1.0) Estimated GFR (Cockcroft-Gault) 26.7 Glucose Level 213mg/dL (70-99) Calcium Level 9.5mg/dL (8.5-10.1) Phosphorus Level 3.2mg/dL (2.6-4.7) Magnesium Level 2.5mg/dL (1.8-2.4) Albumin 2.6g/dL (3.4-5.0) Test 11/29/16 07:29 11/29/16 11:48 Glucose (Fingerstick) 209mg/dL (70-99) 193mg/dL (70-99) Microbiology 11/25/16 Blood Culture - Preliminary, Resulted NO GROWTH AFTER 3 DAYS Medications Current Medications Ondansetron HCl (Zofran) 4 mg PRN Q6HRS PRN IV NAUSEA/VOMITING; Start 11/25/16 at 12:30 Morphine Sulfate 1 mg PRN Q1HR PRN IV PAIN; Start 11/25/16 at 12:30 Acetaminophen/ Hydrocodone Bitart (Lortab 5/325) 1 tab PRN Q4HRS PRN PO MILD PAIN, 2ND CHOICE Last administered on 11/29/16 08:23; Start 11/25/16 at 12:30 Acetaminophen (Tylenol) 650 mg PRN Q6HRS PRN PO Headaches, Temp > 101.5F; Start 11/25/16 at 12:30 Heparin Sodium (Porcine) 5000 unit 5,000 unit Q8HRS SQ Last administered on 11/27 06:07; Start 11/25/16 at 14:00; Stop 11/27/16 at 11:00; Status DC Piperacillin Sod/ Tazobactam Sod/ Sodium Chloride (Zosyn/Iv Sodium Chloride 0.9 % 50ml) 50 ml @ 100 mls/hr Q6HRS IV ; Start 11/25/16 at 18:00; Status UNV Piperacillin Sod/ Tazobactam Sod (Zosyn Per Pharmacy) 1 each PRN DAILY PRN MC SEE COMMENTS; Start 11/25/16 at 12:30 Vancomycin HCl 1 each 1 each PRN DAILY PRN MC SEE COMMENTS Last administered on 11/27/16 14:43; Start 11/25/16 at 12:30 Vancomycin HCl 1.75 gm/Sodium Chloride 500 ml @ 250 mls/hr 1X ONCE IV ; Start 11/25/16 at 12:30; Stop 11/25/16 at 14:29; Status UNV Vancomycin HCl/ Sodium Chloride (Iv Sodium Chloride 0.9% 500ml Bag) 500 ml @ 250 mls/hr 1X ONCE IV Last administered on 11/25/16 14:18; Start 11/25/16 at 14 :00; Stop 11/25/16 at 15:59; Status DC Albuterol/ Ipratropium (Duoneb) 3 ml RTQID NEB Last administered on 11/26/16 07 :45; Start 11/25/16 at 16:00; Stop 11/26/16 at 09:29; Status DC Albuterol Sulfate (Ventolin Neb Soln) 2.5 mg PRN Q4HRS PRN NEB SHORTNESS OF BREATH; Start 11/25/16 at 14:00 Insulin Aspart (Novolog) 0-9 UNITS TIDWMEALS SQ Last administered on 11/29/16 12:04; Start 11/25/16 at 17:00 Dextrose (Dextrose 50%-Water Syringe) 12.5 gm PRN Q15MIN PRN IV SEE COMMENTS; Start 11/25/16 at 14:00 Hydralazine HCl 10 mg 10 mg PRN Q4HRS PRN IVP ELEVATED BP, SEE COMMENTS; Start 11/25/16 at 14:00 Piperacillin Sod/ Tazobactam Sod 2.25 gm/Sodium Chloride 50 ml @ 100 mls/hr Q8HRS IV Last administered on 11/29/16 05:43; Start 11/25/16 at 15:00 Vancomycin HCl/ Sodium Chloride (Iv Sodium Chloride 0.9% 250ml) 250 ml @ 166.667 mls/hr Q24H IV Last administered on 11/26/16 15:13; Start 11/26/16 at 14 :00; Stop 11/27/16 at 14:37; Status DC Vancomycin HCl 1 each 1X ONCE MC Last administered on 11/27/16 13:30; Start at 13:30; Stop 11/27/16 at 13:31; Status DC Methylprednisolone Sodium Succinate (Solu-Medrol 40mg Vial) 40 mg Q8HRS IV Last administered on 11/26/16 05:51; Start 11/25/16 at 17:00; Stop 11/26/16 at 09: 27; Status DC Methylprednisolone Sodium Succinate (Solu-Medrol 125mg Vial) 60 mg Q8HRS IV Last administered on 11/28/16 06:31; Start 11/26/16 at 14:00; Stop 11/28/16 at 10: 14; Status DC Albuterol/ Ipratropium 3 ml 3 ml Q4HRS NEB Last administered on 11/29/16 09:24 ; Start 11/26/16 at 12:00 Magnesium Sulfate/ Dextrose (Magnesium Sulfate PREMIX 2GM) 50 ml @ 25 mls/hr PRN DAILY PRN IV for Mag < 1.7 on am labs; Start 11/26/16 at 13:15 Docusate Sodium (Colace) 100 mg DAILY PO Last administered on 11/28/16 08:35; Start 11/26/16 at 14:00 Glipizide (Glucotrol) 5 mg DAILY PO Last administered on 11/29/16 08:23; Start 11/26/16 at 14:00 Nystatin (Nystop) 1 sapna BID TP Last administered on 11/29/16 08:24; Start at 14:00 Gabapentin 300 mg 300 mg TID PO Last administered on 11/28/16 14:04; Start 11/26 at 14:00; Stop 11/28/16 at 14:58; Status DC Iron Sucrose/ Sodium Chloride (Venofer/Iv Sodium Chloride 0.9% 100ml) 110 ml @ 55 mls/hr 3X/WEEK IV Last administered on 11/28/16 08:36; Start 11/26/16 at 15: 00; Stop 12/05/16 at 10:59 Barium Sulfate (Varibar Thin Liquid Apple) 148 gm 1X ONCE PO Last administered on 11/27/16 11:42; Start 11/27/16 at 10:00; Stop 11/27/16 at 10:01; Status DC Darbepoetin Hang (Aranesp) 60 mcg WEEKLYHS SQ Last administered on 11/27/16 21: 59; Start 11/27/16 at 21:00 Guaifenesin (Mucinex) 600 mg BID PO Last administered on 11/29/16 08:23; Start 11/27/16 at 12:30 Insulin Detemir (Levemir) 10 units QHS SQ Last administered on 11/28/16 21:38; Start 11/27/16 at 21:00 Hydralazine HCl 10 mg 10 mg Q8HRS PO Last administered on 11/29/16 05:44; Start 11/27/16 at 14:00 Vancomycin HCl/ Sodium Chloride (Iv Sodium Chloride 0.9% 250ml) 250 ml @ 250 mls/hr Q24H IV Last administered on 11/29/16 11:59; Start 11/28/16 at 13:00 Budesonide (Pulmicort) 0.5 mg RTBID NEB Last administered on 11/29/16 09:24; Start 11/27/16 at 20:00 Methylprednisolone Sodium Succinate (Solu-Medrol 125mg Vial) 60 mg BID IV Last administered on 11/29/16 08:22; Start 11/28/16 at 21:00; Stop 11/29/16 at 11:42; Status DC Gabapentin (Neurontin) 300 mg BID PO Last administered on 11/29/16 08:23; Start 11/28/16 at 21:00 Darbepoetin Hang (Aranesp) 60 mcg WEEKLYHS SQ ; Start 11/28/16 at 21:00; Status UNV Methylprednisolone Sodium Succinate (Solu-Medrol 40mg Vial) 40 mg BID IV ; Start 11/29/16 at 21:00 Montelukast Sodium (Singulair) 10 mg QHS PO ; Start 11/29/16 at 21:00 Active Scripts Active Reported Nystatin 15 Gm Powder 1 Sapna TP BID Lisinopril 20 Mg Tablet 20 Mg PO DAILY Glucotrol (Glipizide) 5 Mg Tablet 5 Mg PO DAILY Gabapentin 300 Mg Capsule 300 Mg PO TID Furosemide 40 Mg Tablet 40 Mg IVP DAILY Docusate Sodium 100 Mg Capsule 100 Mg PO DAILY Vitals/I & O Vital Sign - Last 24 Hours 11/28/16 11/28/16 11/28/1611/28/17 14:05 15:00 16:55 19:41 Temp 97.9 96.8 97.9 96.8 Pulse 86 85 78 Resp 20 18 B/P 143/62 151/63 162/52 Pulse Ox 96 98 95 O2 Delivery Nasal Cannula Nasal Cannula Room Air O2 Flow Rate 2.0 3.5 2.0 11/28/16 11/28/16 11/28/16 11/28/16 20:10 21:06 21:39 23:14 Temp 96.3 96.3 Pulse 78 72 Resp 16 B/P 162/52 152/57 Pulse Ox 94 O2 Delivery Nasal Cannula Nasal Cannula Nasal Cannula O2 Flow Rate 3.0 3.5 3.0 11/28/16 11/29/16 11/29/16 11/29/16 23:40 03:36 05:44 07:00 Temp 97.5 98.0 97.5 98.0 Pulse 72 75 70 Resp 18 16 B/P 160/68 158/70 145/93 Pulse Ox 96 96 O2 Delivery Nasal Cannula Nasal Cannula Nasal Cannula O2 Flow Rate 3.5 3.0 3.0 11/29/16 11/29/16 11/29/16 11/29/16 08:00 08:23 09:23 09:24 Resp 16 Pulse Ox 96 97 97 O2 Delivery Nasal Cannula Nasal Cannula Nasal Cannula Nasal Cannula O2 Flow Rate 3.0 3.0 3.5 3.5 11/29/16 11:00 Temp 97.7 97.7 Pulse 78 Resp 18 B/P 151/55 Pulse Ox 96 O2 Delivery Nasal Cannula O2 Flow Rate 3.0 Intake and Output 11/28/16 11/28/16 11/29/16 15:00 23:00 07:00 Intake Total 460 ml 50 ml 150 ml Output Total 525 ml 450 ml Balance 460 ml -475 ml -300 ml ADDISON SPANN MD Nov 29, 2016 13:15
--- NOTE | 2016-11-29 13:32 | RAD ---
Right leg venous Doppler study: Clinical indications: Right leg swelling and pain. Findings: Duplex sonography (including rainey scale evaluation and color flow and waveform spectral analysis) of the proximal aspect of the greater saphenous vein and the entire length of the common femoral and superficial femoral and popliteal veins and the tibioperoneal trunk and the proximal aspect of the posterior tibial veins of the right leg was performed. Normal compressibility, augmentation of color Doppler flow after calf compression, and respiratory variation of Doppler flow is seen. Thus, there are no sonographic findings of deep venous thrombosis within these veins. Impression: There are no sonographic findings of deep venous thrombosis within the veins discussed above of the right lower extremity. Left leg venous Doppler study: Clinical indications: Left leg swelling and pain. Findings: Duplex sonography (including rainey scale evaluation and color flow and waveform spectral analysis) of the proximal aspect of the greater saphenous vein and the entire length of the common femoral and superficial femoral and popliteal veins and the tibioperoneal trunk and the proximal aspect of the posterior tibial veins of the left leg was performed. Normal compressibility, augmentation of color Doppler flow after calf compression, and respiratory variation of Doppler flow is seen. Thus, there are no sonographic findings of deep venous thrombosis within these veins. Impression: There are no sonographic findings of deep venous thrombosis within the veins discussed above of the left lower extremity.
[2016-11-29 14:53] VITALS: BP 148/53
--- NOTE | 2016-11-29 17:26 | PDOC ---
Provider Note Provider Note RENAL F/U : CLAUDE S : Feels OK. No new c/o No active CP or SOA. O : VSSAFberile. Alert. Neck ; Supple Lungs : Non labored. Decreased bases. CVS : RRR + S3 Abd : Porlty, sl distended. No masses. Non tender. Ext : Trace/stabl;e edema. Neuro ; Grossly intact. Labs, meds and I/Os : Reviewed. ARF/ATN. OBSTRUCTIVE UROPATHY HEMATURIA ANEMIA of CKD. Labs stable/better. Urology following. CPM. Supportive care. NAY ARCE MD Nov 29, 2016 17:26
[2016-11-29 19:30] VITALS: BP 146/66
[2016-11-29] MEDS: MONTELUKAST SODIUM 10 MG TABLET. PO SCH (21:48)
[2016-11-29] MEDS: methylPREDNISolone SOD SUCC PF 40 MG/ML VIAL. IV SCH (21:48)
[2016-11-29] MEDS: INSULIN DETEMIR 300 UNITS/3 ML INSULN.PEN. SQ SCH (21:57)
[2016-11-29 23:30] VITALS: BP 132/59
[2016-11-30] MEDS: IPRATRPIUM/ALBUTEROL 0.5/2.5MG 3 ML NEBU. NEB SCH ×7 (01:07→23:52)
[2016-11-30 03:30] VITALS: BP 137/64
[2016-11-30 05:46] LABS: ALBUMIN 2.6 g/dL (3.4-5.0); CALCIUM 9.4 mg/dL (8.5-10.1); CREATININE 1.7 mg/dL (0.6-1.0); GFR 28.6; PHOSPHORUS 3.3 mg/dL (2.6-4.7); POTASSIUM 3.7 mmol/L (3.5-5.1)
[2016-11-30] MEDS: HYDRALAZINE 10 MG TABLET PO SCH ×3 (06:18→20:37)
[2016-11-30] MEDS: PIPERACILLIN/TAZOBACTAM 2.25 GM in IV NORMAL SALINE 50ML 50 ML IV SCH ×3 (06:18→20:36)
[2016-11-30 07:00] VITALS: BP 176/64
[2016-11-30] MEDS: GLIPIZIDE 5 MG TABLET. PO SCH (07:56)
[2016-11-30] MEDS: GUAIFENESIN ER 600 MG TABLET.ER PO SCH ×2 (07:56→20:36)
[2016-11-30] MEDS: DOCUSATE SODIUM 100 MG CAPSULE. PO SCH (07:57)
[2016-11-30] MEDS: GABAPENTIN 300 MG CAPSULE. PO SCH ×2 (07:57→20:36)
[2016-11-30] MEDS: HYDROCODONE/APAP 5/325MG TABLET. PO PRN ×2 (07:57→20:36)
[2016-11-30] MEDS: NYSTATIN TOPICAL POWDER 15GM BOTTLE. TP SCH ×2 (07:58→20:36)
[2016-11-30] MEDS: methylPREDNISolone SOD SUCC PF 40 MG/ML VIAL. IV SCH ×2 (07:58→20:37)
[2016-11-30] MEDS: INSULIN ASPART 300 UNITS/3 ML INSULN.PEN SQ SCH ×3 (08:06→17:09)
[2016-11-30] MEDS: BUDESONIDE 0.5 MG/2 ML NEBU. NEB SCH ×2 (08:40→23:49)
--- NOTE | 2016-11-30 08:47 | PDOC ---
PULMONARY PROGRESS NOTES Subjective has sob. has cough, nasal congestion, no pain. had more sob last night Vitals Vital Signs Date Time Temp Pulse Resp B/P Pulse Ox O2 Delivery O2 Flow Rate FiO2 11/30/16 07:57 16 95 Nasal Cannula 2.0 11/30/16 07:00 97.5 101 176/64 97.5 ROS: No Nausea, No Chest Pain, No Abdominal Pain General: Alert HEENT: Other (nc at perrl) Lungs: Crackles (bl mild crackles) Cardiovascular: S1, S2 Abdomen: Soft, Non-tender Neuro Exam: Alert, Oriented Extremities: No Edema Skin: Warm Labs Laboratory Tests Test 11/28/16 10:35 11/28/16 11:52 11/28/16 15:15 11/28/16 16:53 Stool Occult Blood Negative (NEG) Glucose (Fingerstick) 265mg/dL (70-99) 290mg/dL (70-99) Complement C3 131mg/dL (82-167) Complement C4 25mg/dL (14-44) Test 11/28/16 20:38 11/29/16 04:36 11/29/16 07:29 11/29/16 11:48 Glucose (Fingerstick) 239mg/dL (70-99) 209mg/dL (70-99) 193mg/dL (70-99) White Blood Count 11.9x10^3/uL (4.0-11.0) Red Blood Count 2.80x10^6/uL (3.50-5.40) Hemoglobin 8.8g/dL (12.0-15.5) Hematocrit 27.2% (36.0-47.0) Mean Corpuscular Volume 97fL (79-100) Mean Corpuscular Hemoglobin 32pg (25-35) Mean Corpuscular Hemoglobin Concent 32g/dL (31-37) Red Cell Distribution Width 15.8% (11.5-14.5) Platelet Count 314x10^3/uL (140-400) Neutrophils (%) (Auto) 84% (31-73) Lymphocytes (%) (Auto) 10% (24-48) Monocytes (%) (Auto) 7% (0-9) Eosinophils (%) (Auto) 0% (0-3) Basophils (%) (Auto) 0% (0-3) Neutrophils # (Auto) 10.0x10^3uL (1.8-7.7) Lymphocytes # (Auto) 1.1x10^3/uL (1.0-4.8) Monocytes # (Auto) 0.8x10^3/uL (0.0-1.1) Eosinophils # (Auto) 0.0x10^3/uL (0.0-0.7) Basophils # (Auto) 0.0x10^3/uL (0.0-0.2) Sodium Level 144mmol/L (136-145) Potassium Level 3.5mmol/L (3.5-5.1) Chloride Level 109mmol/L (98-107) Carbon Dioxide Level 27mmol/L (21-32) Anion Gap 8 (6-14) Blood Urea Nitrogen 62mg/dL (7-20) Creatinine 1.8mg/dL (0.6-1.0) Estimated GFR (Cockcroft-Gault) 26.7 Glucose Level 213mg/dL (70-99) Calcium Level 9.5mg/dL (8.5-10.1) Phosphorus Level 3.2mg/dL (2.6-4.7) Magnesium Level 2.5mg/dL (1.8-2.4) Albumin 2.6g/dL (3.4-5.0) Test 11/29/16 17:24 11/29/16 21:14 11/30/16 04:22 11/30/16 07:49 Glucose (Fingerstick) 242mg/dL (70-99) 263mg/dL (70-99) 159mg/dL (70-99) Sodium Level 147mmol/L (136-145) Potassium Level 3.7mmol/L (3.5-5.1) Chloride Level 110mmol/L (98-107) Carbon Dioxide Level 27mmol/L (21-32) Anion Gap 10 (6-14) Blood Urea Nitrogen 57mg/dL (7-20) Creatinine 1.7mg/dL (0.6-1.0) Estimated GFR (Cockcroft-Gault) 28.6 Glucose Level 215mg/dL (70-99) Calcium Level 9.4mg/dL (8.5-10.1) Phosphorus Level 3.3mg/dL (2.6-4.7) Magnesium Level 2.7mg/dL (1.8-2.4) Albumin 2.6g/dL (3.4-5.0) Laboratory Tests Test 11/29/16 11:48 11/29/16 17:24 11/29/16 21:14 11/30/16 04:22 Glucose (Fingerstick) 193mg/dL (70-99) 242mg/dL (70-99) 263mg/dL (70-99) Sodium Level 147mmol/L (136-145) Potassium Level 3.7mmol/L (3.5-5.1) Chloride Level 110mmol/L (98-107) Carbon Dioxide Level 27mmol/L (21-32) Anion Gap 10 (6-14) Blood Urea Nitrogen 57mg/dL (7-20) Creatinine 1.7mg/dL (0.6-1.0) Estimated GFR (Cockcroft-Gault) 28.6 Glucose Level 215mg/dL (70-99) Calcium Level 9.4mg/dL (8.5-10.1) Phosphorus Level 3.3mg/dL (2.6-4.7) Magnesium Level 2.7mg/dL (1.8-2.4) Albumin 2.6g/dL (3.4-5.0) Test 11/30/16 07:49 Glucose (Fingerstick) 159mg/dL (70-99) Medications Active Scripts Medications Dose Route/Sig Days Date Category Nystatin 15 Gm Powder 1 Sapna TP BID 11/25/16 Reported Lisinopril 20 Mg Tablet 20 Mg PO DAILY 11/25/16 Reported Glucotrol (Glipizide) 5 Mg Tablet 5 Mg PO DAILY 11/25/16 Reported Gabapentin 300 Mg Capsule 300 Mg PO TID 11/25/16 Reported Furosemide 40 Mg Tablet 40 Mg IVP DAILY 11/25/16 Reported Docusate Sodium 100 Mg Capsule 100 Mg PO DAILY 11/25/16 Reported Impression . 1. Dyspnea / Acute hypoxic Respiratory failure secondary to multifactorial etiologies including acute exacerbation of chronic obstructive pulmonary disease along with pneumonia involving the right lung. 2. Abnormal CT chest with extensive pneumonia in the right lung. We will cover for gram-negative and gram-positive organisms for healthcare-associated pneumonia. 3. Underlying chronic obstructive pulmonary disease with exacerbation. 4. Acute kidney injury. 5. Small to moderate right pleural effusion. We will monitor for now. Plan . 1. clinically improved with BIPAP. We will continue with broad-spectrum antibiotics. 2. Continue with DuoNebs. 3. cont Solu-Medrol 40 mg bid, no dose change 4. singulair 5. chest x-rays improving infiltrates. 6. keep I<O discussed w pt CHAITANYA SPENCE MD Nov 30, 2016 08:47
[2016-11-30 11:34] VITALS: BP 159/68
[2016-11-30] MEDS: VANCOMYCIN 750 MG in IV NORMAL SALINE 250ML 250 ML IV SCH (12:36)
--- NOTE | 2016-11-30 12:53 | PDOC ---
PROGRESS NOTES Chief Complaint Chief Complaint pna 1. acute resp failure with HAP 2. recent bl leg cellulitis 3. h/o systolic CHF EF 40% 4. h/o CAD 5. 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 dm2 7. COPD 8. h/o stroke 9. morbid obesity 10. HTN 11.sepsis with 1 12. moderate PHTN 13. urinary retention 14. hematuria with anthony plan: 1. card, pulm, renal consulted 2. CXR, CT , renal US done 3. labs am 4. ssi, duoneb. solumedrol decrease to bid 5. cont home meds, hold lasix and lisinopril for now 6. blcx, sputum cx. add vanco and zosyn 7. dvt ppx ptot CT chest showed possible renal mass, may need CT, but with ROB , CT wo contrast is not ideal for now. renal aware. Swallow eval done, on dysphagia 2 diet add levemir since on high dose solumedrol, SSI. get URo consult 4days ago, but still not coming, dont know why, asked nurse to call again, dc heparin for now will do bl leg dupplex and doppler to rule out DVT, PAD add cough meds History of Present Illness History of Present Illness choked 11/26 then cough a lot, better on 11/28, lower sputum output on NC 2-3L on anthony 11/26, hematuria, oliguria, US showed distended bladder. hematuria gone , mild on 11/29 Cr better CXR better still bl leg pain with tenderness Vitals Vitals Vital Signs Date Time Temp Pulse Resp B/P Pulse Ox O2 Delivery O2 Flow Rate FiO2 11/30/16 12:46 Nasal Cannula 2.0 11/30/16 11:34 97.9 87 24 159/68 95 97.9 Physical Exam General: Alert, Oriented X3, Cooperative Heart: Regular rate, Normal S1 (mild ) Lungs: Crackles (bl mild crackles) Abdomen: Normal bowel sounds, Soft Extremities: No clubbing, No cyanosis Labs LABS Laboratory Tests Test 11/29/16 17:24 11/29/16 21:14 11/30/16 04:22 11/30/16 07:49 Glucose (Fingerstick) 242mg/dL (70-99) 263mg/dL (70-99) 159mg/dL (70-99) Sodium Level 147mmol/L (136-145) Potassium Level 3.7mmol/L (3.5-5.1) Chloride Level 110mmol/L (98-107) Carbon Dioxide Level 27mmol/L (21-32) Anion Gap 10 (6-14) Blood Urea Nitrogen 57mg/dL (7-20) Creatinine 1.7mg/dL (0.6-1.0) Estimated GFR (Cockcroft-Gault) 28.6 Glucose Level 215mg/dL (70-99) Calcium Level 9.4mg/dL (8.5-10.1) Phosphorus Level 3.3mg/dL (2.6-4.7) Magnesium Level 2.7mg/dL (1.8-2.4) Albumin 2.6g/dL (3.4-5.0) Test 11/30/16 10:32 Glucose (Fingerstick) 246mg/dL (70-99) Review of Systems Review of Systems no fever, chills, chest pain Assessment and Plan Assessmemt and Plan Problems Medical Problems: (1) Pneumonia Status: Acute Problems: Comment Review of Relevant I have reviewed the following items missy (where applicable) has been applied. Labs Laboratory Tests Test 11/28/16 15:15 11/28/16 16:53 11/28/16 20:38 11/29/16 04:36 Complement C3 131mg/dL (82-167) Complement C4 25mg/dL (14-44) Glucose (Fingerstick) 290mg/dL (70-99) 239mg/dL (70-99) White Blood Count 11.9x10^3/uL (4.0-11.0) Red Blood Count 2.80x10^6/uL (3.50-5.40) Hemoglobin 8.8g/dL (12.0-15.5) Hematocrit 27.2% (36.0-47.0) Mean Corpuscular Volume 97fL (79-100) Mean Corpuscular Hemoglobin 32pg (25-35) Mean Corpuscular Hemoglobin Concent 32g/dL (31-37) Red Cell Distribution Width 15.8% (11.5-14.5) Platelet Count 314x10^3/uL (140-400) Neutrophils (%) (Auto) 84% (31-73) Lymphocytes (%) (Auto) 10% (24-48) Monocytes (%) (Auto) 7% (0-9) Eosinophils (%) (Auto) 0% (0-3) Basophils (%) (Auto) 0% (0-3) Neutrophils # (Auto) 10.0x10^3uL (1.8-7.7) Lymphocytes # (Auto) 1.1x10^3/uL (1.0-4.8) Monocytes # (Auto) 0.8x10^3/uL (0.0-1.1) Eosinophils # (Auto) 0.0x10^3/uL (0.0-0.7) Basophils # (Auto) 0.0x10^3/uL (0.0-0.2) Sodium Level 144mmol/L (136-145) Potassium Level 3.5mmol/L (3.5-5.1) Chloride Level 109mmol/L (98-107) Carbon Dioxide Level 27mmol/L (21-32) Anion Gap 8 (6-14) Blood Urea Nitrogen 62mg/dL (7-20) Creatinine 1.8mg/dL (0.6-1.0) Estimated GFR (Cockcroft-Gault) 26.7 Glucose Level 213mg/dL (70-99) Calcium Level 9.5mg/dL (8.5-10.1) Phosphorus Level 3.2mg/dL (2.6-4.7) Magnesium Level 2.5mg/dL (1.8-2.4) Albumin 2.6g/dL (3.4-5.0) Test 11/29/16 07:29 11/29/16 11:48 11/29/16 17:24 11/29/16 21:14 Glucose (Fingerstick) 209mg/dL (70-99) 193mg/dL (70-99) 242mg/dL (70-99) 263mg/dL (70-99) Test 11/30/16 04:22 11/30/16 07:49 11/30/16 10:32 Sodium Level 147mmol/L (136-145) Potassium Level 3.7mmol/L (3.5-5.1) Chloride Level 110mmol/L (98-107) Carbon Dioxide Level 27mmol/L (21-32) Anion Gap 10 (6-14) Blood Urea Nitrogen 57mg/dL (7-20) Creatinine 1.7mg/dL (0.6-1.0) Estimated GFR (Cockcroft-Gault) 28.6 Glucose Level 215mg/dL (70-99) Calcium Level 9.4mg/dL (8.5-10.1) Phosphorus Level 3.3mg/dL (2.6-4.7) Magnesium Level 2.7mg/dL (1.8-2.4) Albumin 2.6g/dL (3.4-5.0) Glucose (Fingerstick) 159mg/dL (70-99) 246mg/dL (70-99) Laboratory Tests Test 11/29/16 17:24 11/29/16 21:14 11/30/16 04:22 11/30/16 07:49 Glucose (Fingerstick) 242mg/dL (70-99) 263mg/dL (70-99) 159mg/dL (70-99) Sodium Level 147mmol/L (136-145) Potassium Level 3.7mmol/L (3.5-5.1) Chloride Level 110mmol/L (98-107) Carbon Dioxide Level 27mmol/L (21-32) Anion Gap 10 (6-14) Blood Urea Nitrogen 57mg/dL (7-20) Creatinine 1.7mg/dL (0.6-1.0) Estimated GFR (Cockcroft-Gault) 28.6 Glucose Level 215mg/dL (70-99) Calcium Level 9.4mg/dL (8.5-10.1) Phosphorus Level 3.3mg/dL (2.6-4.7) Magnesium Level 2.7mg/dL (1.8-2.4) Albumin 2.6g/dL (3.4-5.0) Test 11/30/16 10:32 Glucose (Fingerstick) 246mg/dL (70-99) Microbiology 11/25/16 Blood Culture - Preliminary, Resulted NO GROWTH AFTER 4 DAYS Medications Current Medications Ondansetron HCl (Zofran) 4 mg PRN Q6HRS PRN IV NAUSEA/VOMITING; Start 11/25/16 at 12:30 Morphine Sulfate 1 mg PRN Q1HR PRN IV PAIN; Start 11/25/16 at 12:30 Acetaminophen/ Hydrocodone Bitart (Lortab 5/325) 1 tab PRN Q4HRS PRN PO MILD PAIN, 2ND CHOICE Last administered on 11/30/16 07:57; Start 11/25/16 at 12:30 Acetaminophen (Tylenol) 650 mg PRN Q6HRS PRN PO Headaches, Temp > 101.5F; Start 11/25/16 at 12:30 Heparin Sodium (Porcine) 5000 unit 5,000 unit Q8HRS SQ Last administered on 11/27 06:07; Start 11/25/16 at 14:00; Stop 11/27/16 at 11:00; Status DC Piperacillin Sod/ Tazobactam Sod/ Sodium Chloride (Zosyn/Iv Sodium Chloride 0.9 % 50ml) 50 ml @ 100 mls/hr Q6HRS IV ; Start 11/25/16 at 18:00; Status UNV Piperacillin Sod/ Tazobactam Sod (Zosyn Per Pharmacy) 1 each PRN DAILY PRN MC SEE COMMENTS; Start 11/25/16 at 12:30 Vancomycin HCl 1 each 1 each PRN DAILY PRN MC SEE COMMENTS Last administered on 11/27/16 14:43; Start 11/25/16 at 12:30 Vancomycin HCl 1.75 gm/Sodium Chloride 500 ml @ 250 mls/hr 1X ONCE IV ; Start 11/25/16 at 12:30; Stop 11/25/16 at 14:29; Status UNV Vancomycin HCl/ Sodium Chloride (Iv Sodium Chloride 0.9% 500ml Bag) 500 ml @ 250 mls/hr 1X ONCE IV Last administered on 11/25/16 14:18; Start 11/25/16 at 14 :00; Stop 11/25/16 at 15:59; Status DC Albuterol/ Ipratropium (Duoneb) 3 ml RTQID NEB Last administered on 11/26/16 07 :45; Start 11/25/16 at 16:00; Stop 11/26/16 at 09:29; Status DC Albuterol Sulfate (Ventolin Neb Soln) 2.5 mg PRN Q4HRS PRN NEB SHORTNESS OF BREATH; Start 11/25/16 at 14:00 Insulin Aspart (Novolog) 0-9 UNITS TIDWMEALS SQ Last administered on 11/30/16 11:58; Start 11/25/16 at 17:00 Dextrose (Dextrose 50%-Water Syringe) 12.5 gm PRN Q15MIN PRN IV SEE COMMENTS; Start 11/25/16 at 14:00 Hydralazine HCl 10 mg 10 mg PRN Q4HRS PRN IVP ELEVATED BP, SEE COMMENTS; Start 11/25/16 at 14:00 Piperacillin Sod/ Tazobactam Sod 2.25 gm/Sodium Chloride 50 ml @ 100 mls/hr Q8HRS IV Last administered on 11/30/16 06:18; Start 11/25/16 at 15:00 Vancomycin HCl/ Sodium Chloride (Iv Sodium Chloride 0.9% 250ml) 250 ml @ 166.667 mls/hr Q24H IV Last administered on 11/26/16 15:13; Start 11/26/16 at 14 :00; Stop 11/27/16 at 14:37; Status DC Vancomycin HCl 1 each 1X ONCE MC Last administered on 11/27/16 13:30; Start at 13:30; Stop 11/27/16 at 13:31; Status DC Methylprednisolone Sodium Succinate (Solu-Medrol 40mg Vial) 40 mg Q8HRS IV Last administered on 11/26/16 05:51; Start 11/25/16 at 17:00; Stop 11/26/16 at 09: 27; Status DC Methylprednisolone Sodium Succinate (Solu-Medrol 125mg Vial) 60 mg Q8HRS IV Last administered on 11/28/16 06:31; Start 11/26/16 at 14:00; Stop 11/28/16 at 10: 14; Status DC Albuterol/ Ipratropium 3 ml 3 ml Q4HRS NEB Last administered on 11/30/16 12:45 ; Start 11/26/16 at 12:00 Magnesium Sulfate/ Dextrose (Magnesium Sulfate PREMIX 2GM) 50 ml @ 25 mls/hr PRN DAILY PRN IV for Mag < 1.7 on am labs; Start 11/26/16 at 13:15 Docusate Sodium (Colace) 100 mg DAILY PO Last administered on 11/30/16 07:57; Start 11/26/16 at 14:00 Glipizide (Glucotrol) 5 mg DAILY PO Last administered on 11/30/16 07:56; Start 11/26/16 at 14:00 Nystatin (Nystop) 1 sapna BID TP Last administered on 11/30/16 07:58; Start at 14:00 Gabapentin 300 mg 300 mg TID PO Last administered on 11/28/16 14:04; Start 11/26 at 14:00; Stop 11/28/16 at 14:58; Status DC Iron Sucrose/ Sodium Chloride (Venofer/Iv Sodium Chloride 0.9% 100ml) 110 ml @ 55 mls/hr 3X/WEEK IV Last administered on 11/28/16 08:36; Start 11/26/16 at 15: 00; Stop 12/05/16 at 10:59 Barium Sulfate (Varibar Thin Liquid Apple) 148 gm 1X ONCE PO Last administered on 11/27/16 11:42; Start 11/27/16 at 10:00; Stop 11/27/16 at 10:01; Status DC Darbepoetin Hang (Aranesp) 60 mcg WEEKLYHS SQ Last administered on 11/27/16 21: 59; Start 11/27/16 at 21:00 Guaifenesin (Mucinex) 600 mg BID PO Last administered on 11/30/16 07:56; Start 11/27/16 at 12:30 Insulin Detemir (Levemir) 10 units QHS SQ Last administered on 11/29/16 21:57; Start 11/27/16 at 21:00 Hydralazine HCl 10 mg 10 mg Q8HRS PO Last administered on 11/30/16 06:18; Start 11/27/16 at 14:00 Vancomycin HCl/ Sodium Chloride (Iv Sodium Chloride 0.9% 250ml) 250 ml @ 250 mls/hr Q24H IV Last administered on 11/30/16 12:36; Start 11/28/16 at 13:00 Budesonide (Pulmicort) 0.5 mg RTBID NEB Last administered on 11/30/16 08:40; Start 11/27/16 at 20:00 Methylprednisolone Sodium Succinate (Solu-Medrol 125mg Vial) 60 mg BID IV Last administered on 11/29/16 08:22; Start 11/28/16 at 21:00; Stop 11/29/16 at 11:42; Status DC Gabapentin (Neurontin) 300 mg BID PO Last administered on 11/30/16 07:57; Start 11/28/16 at 21:00 Darbepoetin Hang (Aranesp) 60 mcg WEEKLYHS SQ ; Start 11/28/16 at 21:00; Status UNV Methylprednisolone Sodium Succinate (Solu-Medrol 40mg Vial) 40 mg BID IV Last administered on 11/30/16 07:58; Start 11/29/16 at 21:00 Montelukast Sodium (Singulair) 10 mg QHS PO Last administered on 11/29/16 21:48 ; Start 11/29/16 at 21:00 Benzonatate (Tessalon Perle) 100 mg [id number] PO ; Start 11/30/16 at 14:00 Active Scripts Active Reported Nystatin 15 Gm Powder 1 Sapna TP BID Lisinopril 20 Mg Tablet 20 Mg PO DAILY Glucotrol (Glipizide) 5 Mg Tablet 5 Mg PO DAILY Gabapentin 300 Mg Capsule 300 Mg PO TID Furosemide 40 Mg Tablet 40 Mg IVP DAILY Docusate Sodium 100 Mg Capsule 100 Mg PO DAILY Vitals/I & O Vital Sign - Last 24 Hours 11/29/16 11/29/16 11/29/16 11/29/16 13:42 14:11 14:53 18:06 Temp 97.7 97.7 Pulse 78 81 Resp 18 B/P 151/55 148/53 Pulse Ox 96 O2 Delivery Nasal Cannula Nasal Cannula Nasal Cannula O2 Flow Rate 3.5 3.0 3.5 11/29/16 11/29/16 11/29/16 11/29/16 19:30 20:00 21:19 21:20 Temp 97.7 97.7 Pulse 84 Resp 24 B/P 146/66 Pulse Ox 96 96 96 O2 Delivery Nasal Cannula Nasal Cannula Nasal Cannula Nasal Cannula O2 Flow Rate 3.0 3.0 2.5 2.5 11/29/16 11/29/16 11/30/16 11/30/16 21:48 23:30 03:30 06:18 Temp 97.5 98.6 97.5 98.6 Pulse 84 89 79 79 Resp 24 24 B/P 146/66 132/59 137/64 137/64 Pulse Ox 94 95 O2 Delivery Nasal Cannula Nasal Cannula O2 Flow Rate 3.0 2.0 11/30/16 11/30/16 11/30/16 11/30/16 07:00 07:57 08:00 08:42 Temp 97.5 97.5 Pulse 101 Resp 24 16 B/P 176/64 Pulse Ox 96 95 95 O2 Delivery Nasal Cannula Nasal Cannula Nasal Cannula Nasal Cannula O2 Flow Rate 2.0 2.0 2.0 2.0 11/30/16 11/30/16 11/30/16 08:57 11:34 12:46 Temp 97.9 97.9 Pulse 87 Resp 16 24 B/P 159/68 Pulse Ox 95 95 O2 Delivery Nasal Cannula Nasal Cannula Nasal Cannula O2 Flow Rate 2.0 2.0 2.0 Intake and Output 11/29/16 11/29/16 11/30/16 15:00 23:00 07:00 Intake Total 200 ml 440 ml Output Total 950 ml Balance 200 ml -510 ml ADDISON SPANN MD Nov 30, 2016 12:53
[2016-11-30 13:12] LABS: TOTAL SERUM CREATININE 1.63 mg/dL (0.57-1.00); TOTAL URINE CREATININE 76.6 mg/dL (Not Estab.)
[2016-11-30] MEDS: BENZONATATE 100 MG CAPSULE. PO SCH ×2 (14:24→20:36)
[2016-11-30 15:28] VITALS: BP 162/65
--- NOTE | 2016-11-30 17:39 | PDOC ---
Provider Note Provider Note RENAL F/U : CLAUDE S : Feels OK. No new c/o No active CP or SOA. O : VSSAFberile. Alert. Neck ; Supple Lungs : Non labored. Decreased bases. CVS : RRR + S3 Abd : Porlty, sl distended. No masses. Non tender. Ext : Trace/stabl;e edema. Neuro ; Grossly intact. Labs, meds and I/Os : Reviewed. ARF/ATN. OBSTRUCTIVE UROPATHY HEMATURIA ANEMIA of CKD. HYPERNATREMIA : Free water PO Labs stable/better. Watch Na CPM. Supportive care. NAY ARCE MD Nov 30, 2016 17:39
[2016-11-30 18:07] LABS: PROTEIN 24 HR UR 656.7 mg/24 hr (30.0-150.0)
[2016-11-30 19:35] VITALS: BP 154/65
[2016-11-30] MEDS: MONTELUKAST SODIUM 10 MG TABLET. PO SCH (20:36)
[2016-11-30] MEDS: INSULIN DETEMIR 300 UNITS/3 ML INSULN.PEN. SQ SCH (22:18)
[2016-11-30 23:40] VITALS: BP 148/77
[2016-12-01] MEDS: IPRATRPIUM/ALBUTEROL 0.5/2.5MG 3 ML NEBU. NEB SCH ×6 (03:11→23:19)
[2016-12-01 03:40] VITALS: BP 149/74
[2016-12-01] MEDS: PIPERACILLIN/TAZOBACTAM 2.25 GM in IV NORMAL SALINE 50ML 50 ML IV SCH ×3 (05:17→21:19)
[2016-12-01] MEDS: HYDRALAZINE 10 MG TABLET PO SCH ×3 (05:18→21:19)
[2016-12-01 07:00] VITALS: BP 164/65
[2016-12-01 07:04] LABS: ALBUMIN 2.7 g/dL (3.4-5.0); CALCIUM 8.9 mg/dL (8.5-10.1); CREATININE 1.6 mg/dL (0.6-1.0); GFR 30.6; PHOSPHORUS 3.3 mg/dL (2.6-4.7); POTASSIUM 4.4 mmol/L (3.5-5.1)
--- NOTE | 2016-12-01 08:19 | PDOC ---
Provider Note Provider Note UROLOGY: Consult dictated. Thank you, MARYANN TURNER DO Dec 01, 2016 08:19
--- NOTE | 2016-12-01 08:45 | RAD ---
Bilateral lower extremity arterial ultrasound, 11/30/2016: History: Bilateral leg pain Duplex evaluation of the major arteries in both lower extremities was performed including grayscale, color-flow and spectral Doppler analysis There are mild scattered atherosclerotic plaques. On the right, the common femoral, superficial femoral, profunda femoris and popliteal arteries demonstrate biphasic Doppler waveforms. No significant focal velocity acceleration is seen to suggest high-grade stenosis. The posterior tibial artery in the right lower leg is patent and demonstrates a biphasic Doppler waveform. Patent peroneal, anterior tibial and dorsalis pedis arteries are also evident demonstrating monophasic Doppler waveforms. On the left, the common femoral, superficial femoral and popliteal Doppler waveforms are biphasic. The profunda femoris Doppler waveform is monophasic. No significant velocity acceleration is seen in these vessels to suggest high-grade focal stenosis. In the left lower leg the posterior and anterior tibial arteries demonstrate biphasic Doppler waveforms. Patent peroneal and dorsalis pedis arteries are evident demonstrating monophasic Doppler waveforms. IMPRESSION: 1. Mild scattered atherosclerotic plaquing without duplex evidence of high-grade femoral-popliteal stenosis on either side. 2. Mild degradation of the distal Doppler waveforms as described above.
[2016-12-01] MEDS: BUDESONIDE 0.5 MG/2 ML NEBU. NEB SCH ×2 (08:46→20:15)
[2016-12-01] MEDS: methylPREDNISolone SOD SUCC PF 40 MG/ML VIAL. IV SCH ×2 (09:07→21:15)
[2016-12-01] MEDS: GLIPIZIDE 5 MG TABLET. PO SCH (09:07)
[2016-12-01] MEDS: GABAPENTIN 300 MG CAPSULE. PO SCH ×2 (09:07→21:16)
[2016-12-01] MEDS: GUAIFENESIN ER 600 MG TABLET.ER PO SCH ×2 (09:07→21:16)
[2016-12-01] MEDS: IRON SUCROSE COMPLEX 200 MG in IV NORMAL SALINE 100ML 100 ML IV SCH (09:07)
[2016-12-01] MEDS: BENZONATATE 100 MG CAPSULE. PO SCH ×3 (09:07→21:16)
[2016-12-01] MEDS: DOCUSATE SODIUM 100 MG CAPSULE. PO SCH (09:07)
[2016-12-01] MEDS: NYSTATIN TOPICAL POWDER 15GM BOTTLE. TP SCH ×2 (09:07→21:16)
[2016-12-01] MEDS: INSULIN ASPART 300 UNITS/3 ML INSULN.PEN SQ SCH ×3 (09:18→18:31)
[2016-12-01 10:21] LABS: GLOMERULAR BASEMENT ABDY 3 units (0-20)
[2016-12-01 10:54] VITALS: BP 161/65
--- NOTE | 2016-12-01 11:21 | PDOC ---
Renal-Progress Notes Subjective Notes Notes NONE, SLEEPY History of Present Illness Hx of present illness BETTER Vitals Vitals Vital Signs Date Time Temp Pulse Resp B/P Pulse Ox O2 Delivery O2 Flow Rate FiO2 12/01/16 10:54 98.0 86 18 161/65 95 Nasal Cannula 2.0 98.0 Weight Weight [ ] I.O. Intake and Output Intake and Output 12/01/16 07:00 Intake Total 2460 ml Output Total 1500 ml Balance 960 ml Intake Oral 1560 ml Other 900 ml Output Urine Total 1500 ml # Bowel Movements 2 Labs Labs Laboratory Tests Test 11/30/16 16:22 12/01/16 05:45 12/01/16 07:42 Glucose (Fingerstick) 263mg/dL (70-99) 179mg/dL (70-99) Sodium Level 149mmol/L (136-145) Potassium Level 4.4mmol/L (3.5-5.1) Chloride Level 112mmol/L (98-107) Carbon Dioxide Level 27mmol/L (21-32) Anion Gap 10 (6-14) Blood Urea Nitrogen 50mg/dL (7-20) Creatinine 1.6mg/dL (0.6-1.0) Estimated GFR (Cockcroft-Gault) 30.6 Glucose Level 167mg/dL (70-99) Calcium Level 8.9mg/dL (8.5-10.1) Phosphorus Level 3.3mg/dL (2.6-4.7) Magnesium Level 2.6mg/dL (1.8-2.4) Albumin 2.7g/dL (3.4-5.0) Micro Micro Microbiology 11/25/16 Blood Culture - Final, Complete NO GROWTH AFTER 5 DAYS Review of Systems Constitutional: yes: no symptom reported Physical Exam General Appearance: no apparent distress Skin: warm Respiratory: decreased breath sounds Heart: S1S2 Abdomen: soft, bowel sounds present Extremities: pulses present Assessment Assessment IMP ROB BETTER WITH CR 2.4 TO 1.6 OBSTRUCTIVE UROPATHY LE CELLULITIS PLAN CONT ANTIBIOTICS UROLOGY EVAL AND TX WILL FOLLOW LABS IN AM CHELSEA SANCHEZ MD Dec 01, 2016 11:21
--- NOTE | 2016-12-01 13:48 | PDOC ---
PROGRESS NOTES Chief Complaint Chief Complaint pna 1. acute resp failure with HAP 2. recent bl leg cellulitis 3. h/o systolic CHF EF 40% 4. h/o CAD 5. 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 dm2 7. COPD 8. h/o stroke 9. morbid obesity 10. HTN 11.sepsis with 1 12. moderate PHTN 13. urinary retention 14. Obstructive uropathy CT chest showed possible renal mass, may need CT, but with ROB , CT wo contrast is not ideal for now. renal aware. Swallow eval done, on dysphagia 2 diet add Levemir since on high dose solumedrol, SSI. duplex and Doppler to rule out DVT, PAD- no acute findins. labs reviewed. d/w son at bedside. continue abx. History of Present Illness History of Present Illness no fever doing better sitting in chair Vitals Vitals Vital Signs Date Time Temp Pulse Resp B/P Pulse Ox O2 Delivery O2 Flow Rate FiO2 12/01/16 11:55 95 Nasal Cannula 2.0 12/01/16 10:54 98.0 86 18 161/65 98.0 Physical Exam General: Alert, Oriented X3, Cooperative Heart: Regular rate, Normal S1 (mild ) Lungs: Crackles (bl mild crackles) Abdomen: Normal bowel sounds, Soft Extremities: No clubbing, No cyanosis Labs LABS Laboratory Tests Test 11/30/16 16:22 12/01/16 05:45 12/01/16 07:42 12/01/16 12:18 Glucose (Fingerstick) 263mg/dL (70-99) 179mg/dL (70-99) 225mg/dL (70-99) Sodium Level 149mmol/L (136-145) Potassium Level 4.4mmol/L (3.5-5.1) Chloride Level 112mmol/L (98-107) Carbon Dioxide Level 27mmol/L (21-32) Anion Gap 10 (6-14) Blood Urea Nitrogen 50mg/dL (7-20) Creatinine 1.6mg/dL (0.6-1.0) Estimated GFR (Cockcroft-Gault) 30.6 Glucose Level 167mg/dL (70-99) Calcium Level 8.9mg/dL (8.5-10.1) Phosphorus Level 3.3mg/dL (2.6-4.7) Magnesium Level 2.6mg/dL (1.8-2.4) Albumin 2.7g/dL (3.4-5.0) Assessment and Plan Assessmemt and Plan Problems Medical Problems: (1) Pneumonia Status: Acute Problems: Comment Review of Relevant I have reviewed the following items missy (where applicable) has been applied. Labs Laboratory Tests Test 11/29/16 17:24 11/29/16 21:14 11/30/16 04:22 11/30/16 06:00 Glucose (Fingerstick) 242mg/dL (70-99) 263mg/dL (70-99) Sodium Level 147mmol/L (136-145) Potassium Level 3.7mmol/L (3.5-5.1) Chloride Level 110mmol/L (98-107) Carbon Dioxide Level 27mmol/L (21-32) Anion Gap 10 (6-14) Blood Urea Nitrogen 57mg/dL (7-20) Creatinine 1.7mg/dL (0.6-1.0) 1.63mg/dL (0.57-1.00) Estimated GFR (Cockcroft-Gault) 28.6 Glucose Level 215mg/dL (70-99) Calcium Level 9.4mg/dL (8.5-10.1) Phosphorus Level 3.3mg/dL (2.6-4.7) Magnesium Level 2.7mg/dL (1.8-2.4) Albumin 2.6g/dL (3.4-5.0) Urine Protein 59.7mg/dL (Not Estab.) Urine Creatinine 24 Hour 843mg/24 hr (800-1800) Creatinine Clearance 24 Hour 36mL/min (88-128) Urine Protein 24 Hr Calculated 656.7mg/24 hr (30.0-150.0) Estimated GFR (Non- 29 (>59) EGFR 33 (>59) Test 11/30/16 07:49 11/30/16 10:32 11/30/16 16:22 12/01/16 05:45 Glucose (Fingerstick) 159mg/dL (70-99) 246mg/dL (70-99) 263mg/dL (70-99) Sodium Level 149mmol/L (136-145) Potassium Level 4.4mmol/L (3.5-5.1) Chloride Level 112mmol/L (98-107) Carbon Dioxide Level 27mmol/L (21-32) Anion Gap 10 (6-14) Blood Urea Nitrogen 50mg/dL (7-20) Creatinine 1.6mg/dL (0.6-1.0) Estimated GFR (Cockcroft-Gault) 30.6 Glucose Level 167mg/dL (70-99) Calcium Level 8.9mg/dL (8.5-10.1) Phosphorus Level 3.3mg/dL (2.6-4.7) Magnesium Level 2.6mg/dL (1.8-2.4) Albumin 2.7g/dL (3.4-5.0) Test 12/01/16 07:42 12/01/16 12:18 Glucose (Fingerstick) 179mg/dL (70-99) 225mg/dL (70-99) Laboratory Tests Test 11/30/16 16:22 12/01/16 05:45 12/01/16 07:42 12/01/16 12:18 Glucose (Fingerstick) 263mg/dL (70-99) 179mg/dL (70-99) 225mg/dL (70-99) Sodium Level 149mmol/L (136-145) Potassium Level 4.4mmol/L (3.5-5.1) Chloride Level 112mmol/L (98-107) Carbon Dioxide Level 27mmol/L (21-32) Anion Gap 10 (6-14) Blood Urea Nitrogen 50mg/dL (7-20) Creatinine 1.6mg/dL (0.6-1.0) Estimated GFR (Cockcroft-Gault) 30.6 Glucose Level 167mg/dL (70-99) Calcium Level 8.9mg/dL (8.5-10.1) Phosphorus Level 3.3mg/dL (2.6-4.7) Magnesium Level 2.6mg/dL (1.8-2.4) Albumin 2.7g/dL (3.4-5.0) Microbiology 11/25/16 Blood Culture - Final, Complete NO GROWTH AFTER 5 DAYS Medications Current Medications Ondansetron HCl (Zofran) 4 mg PRN Q6HRS PRN IV NAUSEA/VOMITING; Start 11/25/16 at 12:30 Morphine Sulfate 1 mg PRN Q1HR PRN IV PAIN; Start 11/25/16 at 12:30 Acetaminophen/ Hydrocodone Bitart (Lortab 5/325) 1 tab PRN Q4HRS PRN PO MILD PAIN, 2ND CHOICE Last administered on 11/30/16 20:36; Start 11/25/16 at 12:30 Acetaminophen (Tylenol) 650 mg PRN Q6HRS PRN PO Headaches, Temp > 101.5F; Start 11/25/16 at 12:30 Heparin Sodium (Porcine) 5000 unit 5,000 unit Q8HRS SQ Last administered on 11/27 06:07; Start 11/25/16 at 14:00; Stop 11/27/16 at 11:00; Status DC Piperacillin Sod/ Tazobactam Sod/ Sodium Chloride (Zosyn/Iv Sodium Chloride 0.9 % 50ml) 50 ml @ 100 mls/hr Q6HRS IV ; Start 11/25/16 at 18:00; Status UNV Piperacillin Sod/ Tazobactam Sod (Zosyn Per Pharmacy) 1 each PRN DAILY PRN MC SEE COMMENTS; Start 11/25/16 at 12:30 Vancomycin HCl 1 each 1 each PRN DAILY PRN MC SEE COMMENTS Last administered on 11/27/16 14:43; Start 11/25/16 at 12:30 Vancomycin HCl 1.75 gm/Sodium Chloride 500 ml @ 250 mls/hr 1X ONCE IV ; Start 11/25/16 at 12:30; Stop 11/25/16 at 14:29; Status UNV Vancomycin HCl/ Sodium Chloride (Iv Sodium Chloride 0.9% 500ml Bag) 500 ml @ 250 mls/hr 1X ONCE IV Last administered on 11/25/16 14:18; Start 11/25/16 at 14 :00; Stop 11/25/16 at 15:59; Status DC Albuterol/ Ipratropium (Duoneb) 3 ml RTQID NEB Last administered on 11/26/16 07 :45; Start 11/25/16 at 16:00; Stop 11/26/16 at 09:29; Status DC Albuterol Sulfate (Ventolin Neb Soln) 2.5 mg PRN Q4HRS PRN NEB SHORTNESS OF BREATH; Start 11/25/16 at 14:00 Insulin Aspart (Novolog) 0-9 UNITS TIDWMEALS SQ Last administered on 12/01/16 12:00; Start 11/25/16 at 17:00 Dextrose (Dextrose 50%-Water Syringe) 12.5 gm PRN Q15MIN PRN IV SEE COMMENTS; Start 11/25/16 at 14:00 Hydralazine HCl 10 mg 10 mg PRN Q4HRS PRN IVP ELEVATED BP, SEE COMMENTS; Start 11/25/16 at 14:00 Piperacillin Sod/ Tazobactam Sod 2.25 gm/Sodium Chloride 50 ml @ 100 mls/hr Q8HRS IV Last administered on 12/01/16 05:17; Start 11/25/16 at 15:00 Vancomycin HCl/ Sodium Chloride (Iv Sodium Chloride 0.9% 250ml) 250 ml @ 166.667 mls/hr Q24H IV Last administered on 11/26/16 15:13; Start 11/26/16 at 14 :00; Stop 11/27/16 at 14:37; Status DC Vancomycin HCl 1 each 1X ONCE MC Last administered on 11/27/16 13:30; Start at 13:30; Stop 11/27/16 at 13:31; Status DC Methylprednisolone Sodium Succinate (Solu-Medrol 40mg Vial) 40 mg Q8HRS IV Last administered on 11/26/16 05:51; Start 11/25/16 at 17:00; Stop 11/26/16 at 09: 27; Status DC Methylprednisolone Sodium Succinate (Solu-Medrol 125mg Vial) 60 mg Q8HRS IV Last administered on 11/28/16 06:31; Start 11/26/16 at 14:00; Stop 11/28/16 at 10: 14; Status DC Albuterol/ Ipratropium 3 ml 3 ml Q4HRS NEB Last administered on 12/01/16 11:55 ; Start 11/26/16 at 12:00 Magnesium Sulfate/ Dextrose (Magnesium Sulfate PREMIX 2GM) 50 ml @ 25 mls/hr PRN DAILY PRN IV for Mag < 1.7 on am labs; Start 11/26/16 at 13:15 Docusate Sodium (Colace) 100 mg DAILY PO Last administered on 12/01/16 09:07; Start 11/26/16 at 14:00 Glipizide (Glucotrol) 5 mg DAILY PO Last administered on 12/01/16 09:07; Start 11/26/16 at 14:00 Nystatin (Nystop) 1 sapna BID TP Last administered on 12/01/16 09:07; Start 11/26 at 14:00 Gabapentin 300 mg 300 mg TID PO Last administered on 11/28/16 14:04; Start 11/26 at 14:00; Stop 11/28/16 at 14:58; Status DC Iron Sucrose/ Sodium Chloride (Venofer/Iv Sodium Chloride 0.9% 100ml) 110 ml @ 55 mls/hr 3X/WEEK IV Last administered on 12/01/16 09:07; Start 11/26/16 at 15: 00; Stop 12/05/16 at 10:59 Barium Sulfate (Varibar Thin Liquid Apple) 148 gm 1X ONCE PO Last administered on 11/27/16 11:42; Start 11/27/16 at 10:00; Stop 11/27/16 at 10:01; Status DC Darbepoetin Hang (Aranesp) 60 mcg WEEKLYHS SQ Last administered on 11/27/16 21: 59; Start 11/27/16 at 21:00 Guaifenesin (Mucinex) 600 mg BID PO Last administered on 12/01/16 09:07; Start 11/27/16 at 12:30 Insulin Detemir (Levemir) 10 units QHS SQ Last administered on 11/30/16 22:18; Start 11/27/16 at 21:00 Hydralazine HCl 10 mg 10 mg Q8HRS PO Last administered on 12/01/16 05:18; Start 11/27/16 at 14:00 Vancomycin HCl/ Sodium Chloride (Iv Sodium Chloride 0.9% 250ml) 250 ml @ 250 mls/hr Q24H IV Last administered on 11/30/16 12:36; Start 11/28/16 at 13:00 Budesonide (Pulmicort) 0.5 mg RTBID NEB Last administered on 12/01/16 08:46; Start 11/27/16 at 20:00 Methylprednisolone Sodium Succinate (Solu-Medrol 125mg Vial) 60 mg BID IV Last administered on 11/29/16 08:22; Start 11/28/16 at 21:00; Stop 11/29/16 at 11:42; Status DC Gabapentin (Neurontin) 300 mg BID PO Last administered on 12/01/16 09:07; Start 11/28/16 at 21:00 Darbepoetin Hang (Aranesp) 60 mcg WEEKLYHS SQ ; Start 11/28/16 at 21:00; Status UNV Methylprednisolone Sodium Succinate (Solu-Medrol 40mg Vial) 40 mg BID IV Last administered on 12/01/16 09:07; Start 11/29/16 at 21:00 Montelukast Sodium (Singulair) 10 mg QHS PO Last administered on 11/30/16 20:36 ; Start 11/29/16 at 21:00 Benzonatate (Tessalon Perle) 100 mg QPK079 PO Last administered on 12/01/16 09 :07; Start 11/30/16 at 14:00 Active Scripts Active Reported Nystatin 15 Gm Powder 1 Sapna TP BID Lisinopril 20 Mg Tablet 20 Mg PO DAILY Glucotrol (Glipizide) 5 Mg Tablet 5 Mg PO DAILY Gabapentin 300 Mg Capsule 300 Mg PO TID Furosemide 40 Mg Tablet 40 Mg IVP DAILY Docusate Sodium 100 Mg Capsule 100 Mg PO DAILY Vitals/I & O Vital Sign - Last 24 Hours 11/30/16 11/30/16 11/30/16 11/30/16 14:25 15:28 16:34 19:35 Temp 97.5 97.9 97.5 97.9 Pulse 87 97 80 Resp 24 24 B/P 159/68 162/65 154/65 Pulse Ox 95 96 97 O2 Delivery Nasal Cannula Nasal Cannula Nasal Cannula O2 Flow Rate 2.0 2.0 2.0 11/30/16 11/30/16 11/30/16 11/30/16 20:00 20:36 20:37 21:36 Pulse 97 B/P 162/65 Pulse Ox 96 96 O2 Delivery Nasal Cannula Nasal Cannula Nasal Cannula O2 Flow Rate 3.0 2.0 2.0 11/30/16 11/30/16 12/01/16 12/01/16 23:40 23:49 03:12 03:40 Temp 97.6 98.2 97.6 98.2 Pulse 77 82 Resp 24 24 B/P 148/77 149/74 Pulse Ox 97 97 97 O2 Delivery Nasal Cannula Nasal Cannula Nasal Cannula Nasal Cannula O2 Flow Rate 2.0 2.0 2.0 2.0 12/01/16 12/01/16 12/01/16 12/01/16 05:18 07:00 08:00 08:46 Temp 97.9 97.9 Pulse 82 76 Resp 20 B/P 149/74 164/65 Pulse Ox 95 98 O2 Delivery Nasal Cannula Nasal Cannula Nasal Cannula O2 Flow Rate 2.0 3.0 2.0 12/01/16 12/01/16 10:54 11:55 Temp 98.0 98.0 Pulse 86 Resp 18 B/P 161/65 Pulse Ox 95 95 O2 Delivery Nasal Cannula Nasal Cannula O2 Flow Rate 2.0 2.0 Intake and Output 11/30/16 11/30/16 12/01/16 15:00 23:00 07:00 Intake Total 1620 ml 840 ml Output Total 900 ml 600 ml Balance 720 ml 240 ml RIGOBERTO PEREZ MD Dec 01, 2016 13:48
[2016-12-01 14:22] LABS: MYELOPEROXIDASE ABY <9.0 U/mL (0.0-9.0); PROTEINASE 3 ANTIBODY <3.5 U/mL (0.0-3.5)
--- NOTE | 2016-12-01 14:24 | PDOC ---
PULMONARY PROGRESS NOTES Subjective pt feels better, Vitals Vital Signs Date Time Temp Pulse Resp B/P Pulse Ox O2 Delivery O2 Flow Rate FiO2 12/01/16 11:55 95 Nasal Cannula 2.0 12/01/16 10:54 98.0 86 18 161/65 98.0 ROS: No Nausea, No Chest Pain, No Abdominal Pain General: Alert HEENT: Other (nc at perrl) Lungs: Crackles (bl mild crackles) Cardiovascular: S1, S2 Abdomen: Soft, Non-tender Neuro Exam: Alert, Oriented Extremities: No Edema Skin: Warm Labs Laboratory Tests Test 11/29/16 17:24 11/29/16 21:14 11/30/16 04:22 11/30/16 06:00 Glucose (Fingerstick) 242mg/dL (70-99) 263mg/dL (70-99) Sodium Level 147mmol/L (136-145) Potassium Level 3.7mmol/L (3.5-5.1) Chloride Level 110mmol/L (98-107) Carbon Dioxide Level 27mmol/L (21-32) Anion Gap 10 (6-14) Blood Urea Nitrogen 57mg/dL (7-20) Creatinine 1.7mg/dL (0.6-1.0) 1.63mg/dL (0.57-1.00) Estimated GFR (Cockcroft-Gault) 28.6 Glucose Level 215mg/dL (70-99) Calcium Level 9.4mg/dL (8.5-10.1) Phosphorus Level 3.3mg/dL (2.6-4.7) Magnesium Level 2.7mg/dL (1.8-2.4) Albumin 2.6g/dL (3.4-5.0) Urine Protein 59.7mg/dL (Not Estab.) Urine Creatinine 24 Hour 843mg/24 hr (800-1800) Creatinine Clearance 24 Hour 36mL/min (88-128) Urine Protein 24 Hr Calculated 656.7mg/24 hr (30.0-150.0) Estimated GFR (Non- 29 (>59) EGFR 33 (>59) Test 11/30/16 07:49 11/30/16 10:32 11/30/16 16:22 12/01/16 05:45 Glucose (Fingerstick) 159mg/dL (70-99) 246mg/dL (70-99) 263mg/dL (70-99) Sodium Level 149mmol/L (136-145) Potassium Level 4.4mmol/L (3.5-5.1) Chloride Level 112mmol/L (98-107) Carbon Dioxide Level 27mmol/L (21-32) Anion Gap 10 (6-14) Blood Urea Nitrogen 50mg/dL (7-20) Creatinine 1.6mg/dL (0.6-1.0) Estimated GFR (Cockcroft-Gault) 30.6 Glucose Level 167mg/dL (70-99) Calcium Level 8.9mg/dL (8.5-10.1) Phosphorus Level 3.3mg/dL (2.6-4.7) Magnesium Level 2.6mg/dL (1.8-2.4) Albumin 2.7g/dL (3.4-5.0) Test 12/01/16 07:42 12/01/16 12:18 Glucose (Fingerstick) 179mg/dL (70-99) 225mg/dL (70-99) Laboratory Tests Test 11/30/16 16:22 12/01/16 05:45 12/01/16 07:42 12/01/16 12:18 Glucose (Fingerstick) 263mg/dL (70-99) 179mg/dL (70-99) 225mg/dL (70-99) Sodium Level 149mmol/L (136-145) Potassium Level 4.4mmol/L (3.5-5.1) Chloride Level 112mmol/L (98-107) Carbon Dioxide Level 27mmol/L (21-32) Anion Gap 10 (6-14) Blood Urea Nitrogen 50mg/dL (7-20) Creatinine 1.6mg/dL (0.6-1.0) Estimated GFR (Cockcroft-Gault) 30.6 Glucose Level 167mg/dL (70-99) Calcium Level 8.9mg/dL (8.5-10.1) Phosphorus Level 3.3mg/dL (2.6-4.7) Magnesium Level 2.6mg/dL (1.8-2.4) Albumin 2.7g/dL (3.4-5.0) Medications Active Scripts Medications Dose Route/Sig Days Date Category Nystatin 15 Gm Powder 1 Sapna TP BID 11/25/16 Reported Lisinopril 20 Mg Tablet 20 Mg PO DAILY 11/25/16 Reported Glucotrol (Glipizide) 5 Mg Tablet 5 Mg PO DAILY 11/25/16 Reported Gabapentin 300 Mg Capsule 300 Mg PO TID 11/25/16 Reported Furosemide 40 Mg Tablet 40 Mg IVP DAILY 11/25/16 Reported Docusate Sodium 100 Mg Capsule 100 Mg PO DAILY 11/25/16 Reported Impression . 1. Dyspnea / Acute hypoxic Respiratory failure 2. Abnormal CT chest with extensive pneumonia in the right lung. We will cover for gram-negative and gram-positive organisms for healthcare-associated pneumonia. 3. Underlying chronic obstructive pulmonary disease with exacerbation. 4. Acute kidney injury. 5. Small to moderate right pleural effusion. We will monitor for now. Plan . ok to transfer to [facility] clinically improved d/w CHEPE Mckeon MD Dec 01, 2016 14:24
[2016-12-01] MEDS: VANCOMYCIN 750 MG in IV NORMAL SALINE 250ML 250 ML IV SCH (14:38)
[2016-12-01 15:00] VITALS: BP 163/71
[2016-12-01 17:20] LABS: ALPHA 1 0.5 g/dL (0.0-0.4); ALPHA 2 1.1 g/dL (0.4-1.0); BETA 1.1 g/dL (0.7-1.3); GAMMA 1.1 g/dL (0.4-1.8); M-SPIKE Not Observed g/dL (Not Observed); PROTEIN TOTAL 6.4 g/dL (6.0-8.5)
[2016-12-01 19:32] VITALS: BP 129/57
[2016-12-01] MEDS: MONTELUKAST SODIUM 10 MG TABLET. PO SCH (21:16)
[2016-12-01] MEDS: INSULIN DETEMIR 300 UNITS/3 ML INSULN.PEN. SQ SCH (21:33)
[2016-12-01 22:41] VITALS: BP 170/82
--- NOTE | 2016-12-02 01:15 | CONS ---
DATE OF CONSULTATION: 12/01/2016 CHIEF COMPLAINT: Urinary retention, questionable left renal mass. HISTORY OF PRESENT ILLNESS: This is an 86-year-old morbidly obese female who was admitted to the hospital due to acute renal failure, congestive heart failure and cellulitis of the lower extremities. Urology was asked to see the patient due to her urinary retention and ultrasound finding of possible left renal mass. The patient states that she has no problem voiding at home, in fact she is incontinent. She states that since she was admitted to [facility] prior to being transferred here, she was unable to void and they had to place a Presley catheter. A recent ultrasound performed here show that the patient had distended bladder with 1200 mL of urine. Therefore, a Presley catheter has been placed. She denies any history of bladder surgery. PAST MEDICAL HISTORY: Significant for coronary artery disease, chronic kidney disease, type 2 diabetes, COPD, the patient has had previous stroke, morbid obesity, hypertension. ALLERGIES: THE PATIENT IS ALLERGIC TO CEPHALEXIN, FAMOTIDINE, TETRACYCLINE AND TOLMETIN. PHYSICAL EXAMINATION: GENERAL DESCRIPTION: An 86-year-old obese female. She is alert and oriented, cheerful. ABDOMEN: Morbidly obese, negative for flank pain to palpation bilaterally. There are no palpable abdominal masses. No suprapubic tenderness. Perineum: The patient has indwelling Presley catheter draining alexandra-colored urine. EXTREMITIES: The patient has edema and cellulitis of the lower extremities. LABORATORY STUDIES: The patient's creatinine on admission was about 2.4, currently is 1.6. The patient's white blood cell count 11.9, hemoglobin 8.8, hematocrit 27.2, platelet count is adequate. The patient's PT is 17.8, INR is 1.6. The patient has had a 24-hour urine study, there is no UA on the chart. Blood cultures are negative. X-RAY STUDIES: The patient has had two ultrasounds, first ultrasound of the abdomen on 11/25/2016 states that the exam was suboptimal due to the patient's body habitus, they saw lobulation of the left renal contour raising the possibility of an underlying mass. The patient's other abdominal ultrasound was performed on 11/26/2016 and the radiologist stated that the examination is nondiagnostic for evaluation of the kidneys, but her bladder was severely distended and the volume was calculated at 1240 mL. IMPRESSION: 1. Chronic urinary retention. 2. Chronic kidney disease. 3. Questionable left renal mass. SUGGESTIONS: 1. I told the patient that she will need the Presley catheter in place until she is more ambulatory. At that time, we might even start her on Flomax at bedtime and see if that will help her void and then follow her postvoid residual urine volumes very carefully with postvoid bladder scans. 2. With respect to the subtle left renal mass, I would suggest followup ultrasound studies in 4-6 months and/or possibility of a noncontrast CT scan. Thank you for the opportunity to participate in evaluation of this patient. If I can be of further assistance, please call. MARYANN TURNER DO DR: LARA/salvatore JOB#: [id number] / [id number]
[2016-12-02 03:28] VITALS: BP 131/63
[2016-12-02] MEDS: IPRATRPIUM/ALBUTEROL 0.5/2.5MG 3 ML NEBU. NEB SCH ×4 (03:41→16:00)
[2016-12-02 05:45] LABS: ALBUMIN 2.7 g/dL (3.4-5.0); CREATININE 1.4 mg/dL (0.6-1.0); GFR 35.7; PHOSPHORUS 3.1 mg/dL (2.6-4.7); POTASSIUM 4.2 mmol/L (3.5-5.1)
[2016-12-02] MEDS: PIPERACILLIN/TAZOBACTAM 2.25 GM in IV NORMAL SALINE 50ML 50 ML IV SCH (05:47)
[2016-12-02] MEDS: HYDRALAZINE 10 MG TABLET PO SCH ×2 (05:49→13:24)
[2016-12-02 07:55] VITALS: BP 174/66
[2016-12-02] MEDS: BUDESONIDE 0.5 MG/2 ML NEBU. NEB SCH (08:21)
[2016-12-02] MEDS: GLIPIZIDE 5 MG TABLET. PO SCH (09:20)
[2016-12-02] MEDS: GABAPENTIN 300 MG CAPSULE. PO SCH (09:20)
[2016-12-02] MEDS: GUAIFENESIN ER 600 MG TABLET.ER PO SCH (09:21)
[2016-12-02] MEDS: DOCUSATE SODIUM 100 MG CAPSULE. PO SCH ×2 (09:21→09:57)
[2016-12-02] MEDS: BENZONATATE 100 MG CAPSULE. PO SCH ×2 (09:21→13:24)
[2016-12-02] MEDS: methylPREDNISolone SOD SUCC PF 40 MG/ML VIAL. IV SCH (09:23)
[2016-12-02] MEDS: NYSTATIN TOPICAL POWDER 15GM BOTTLE. TP SCH (09:34)
[2016-12-02] MEDS: INSULIN ASPART 300 UNITS/3 ML INSULN.PEN SQ SCH ×2 (09:44→12:23)
[2016-12-02 11:16] VITALS: BP 166/52
--- NOTE | 2016-12-02 11:39 | PDOC ---
Renal-Progress Notes Subjective Notes Notes NONE History of Present Illness Hx of present illness NO CHANGE Vitals Vitals Vital Signs Date Time Temp Pulse Resp B/P Pulse Ox O2 Delivery O2 Flow Rate FiO2 12/02/16 11:16 98.2 91 18 166/52 96 Nasal Cannula 2.0 98.2 Weight Weight [ ] I.O. Intake and Output Intake and Output 12/02/16 06:59 Intake Total 1210 ml Output Total 1100 ml Balance 110 ml Intake Oral 750 ml IV Total 460 ml Output Urine Total 1100 ml # Bowel Movements 2 Labs Labs Laboratory Tests Test 12/01/16 12:18 12/01/16 17:39 12/02/16 04:50 Glucose (Fingerstick) 225mg/dL (70-99) 280mg/dL (70-99) Sodium Level 148mmol/L (136-145) Potassium Level 4.2mmol/L (3.5-5.1) Chloride Level 111mmol/L (98-107) Carbon Dioxide Level 26mmol/L (21-32) Anion Gap 11 (6-14) Blood Urea Nitrogen 42mg/dL (7-20) Creatinine 1.4mg/dL (0.6-1.0) Estimated GFR (Cockcroft-Gault) 35.7 Glucose Level 241mg/dL (70-99) Calcium Level 9.0mg/dL (8.5-10.1) Phosphorus Level 3.1mg/dL (2.6-4.7) Albumin 2.7g/dL (3.4-5.0) Micro Micro Microbiology 11/25/16 Blood Culture - Final, Complete NO GROWTH AFTER 5 DAYS Review of Systems Constitutional: yes: no symptom reported Physical Exam General Appearance: no apparent distress Skin: warm Respiratory: decreased breath sounds Heart: S1S2 Abdomen: soft, bowel sounds present Extremities: pulses present Assessment Assessment IMP ROB BETTER WITH CR 2.4 TO 1.6 OBSTRUCTIVE UROPATHY LE CELLULITIS LEFT RENAL MASS MILD HYPERNATREMIA PLAN CONT ANTIBIOTICS UROLOGY EVAL AND TX HYPOTONIC SALINE D/W UROLOGY WILL FOLLOW LABS IN CHELSEA WOFLE MD Dec 02, 2016 11:39
[2016-12-02] MEDS ORDERED: IV 1/2 NORMAL SALINE 1,000 ML IV SCH (11:45)
[2016-12-02] MEDS: VANCOMYCIN 750 MG in IV NORMAL SALINE 250ML 250 ML IV SCH (12:27)
[2016-12-02 14:55] VITALS: BP 158/65
[2016-12-02 18:12] LABS: M-SPIKE, % Not Observed % (Not Observed); PROTEIN 24 UR 673.2 mg/24 hr (30.0-150.0); PROTEIN UR 61.2 mg/dL (Not Estab.)
[2016-12-03 12:26] LABS: C ANCA <1:20 titer (Neg:<1:20)
[2016-12-04 17:15] LABS: IMMUNOGLOBULIN A 367 mg/dL (64-422); IMMUNOGLOBULIN G 1046 mg/dL (700-1600); IMMUNOGLOBULIN M 88 mg/dL (26-217)
== END 2016-12-02 14:30 | disposition short-term general hospital (02) | DRG 871 ==
LOC: 6 SOUTH 11:40
PROVIDERS: ADMIT Internal Medicine; ATTEND Internal Medicine
DX: A41.9 Sepsis, unspecified organism (principal); J18.9 Pneumonia, unspecified organism; I50.43 Acute on chronic combined systolic (congestive) and diastolic (congestive) heart failure; J96.21 Acute and chronic respiratory failure with hypoxia; N17.0 Acute kidney failure with tubular necrosis; E87.0 Hyperosmolality and hypernatremia; I13.0 Hypertensive heart and chronic kidney disease with heart failure and stage 1 through stage 4 chronic kidney disease, or unspecified chronic kidney disease; I42.9 Cardiomyopathy, unspecified; J44.0 Chronic obstructive pulmonary disease with (acute) lower respiratory infection; J44.1 Chronic obstructive pulmonary disease with (acute) exacerbation; L03.115 Cellulitis of right lower limb; L03.116 Cellulitis of left lower limb; E11.22 Type 2 diabetes mellitus with diabetic chronic kidney disease; E66.01 Morbid (severe) obesity due to excess calories; Z68.36 Body mass index [BMI] 36.0-36.9, adult; I25.10 Atherosclerotic heart disease of native coronary artery without angina pectoris; N13.9 Obstructive and reflux uropathy, unspecified; N18.3 Chronic kidney disease, stage 3 (moderate); R31.9 Hematuria, unspecified; Z85.42 Personal history of malignant neoplasm of other parts of uterus; Z86.73 Personal history of transient ischemic attack (TIA), and cerebral infarction without residual deficits; Z87.891 Personal history of nicotine dependence; Z88.8 Allergy status to other drugs, medicaments and biological substances; Z79.899 Other long term (current) drug therapy
CPT/HCPCS: 36415; 36600; 71010; 71250; 74230; 76770; 80048; 80053; 80069; 80074; 80202; 82274; 82550; 82575; 82607; 82728; 82746; 82805; 82947; 83520; 83540; 83550; 83735; 83880; 83970; 84145; 84156; 84165; 84166; 84300; 84550; 85007; 85018; 85027; 85610; 85651; 86021; 86160; 86334; 86704; 86706; 87040; 93306; 93925; 93970; 94250; 94640; 94660; 94760; J0881; J1756; J1815; J2543; J2920; J2930; J3370; J7040; J7050; J7620; 83516; 83876; 92610; 92611; 97110; 97116; 97530; 97535; J7030